=== PATIENT | female | born 1960 | race Caucasian/White ===

== ENCOUNTER 2020-04-04 14:23 | Outpatient (REF) | payer MEDICARE, MEDICAID, SELFPAY ==
[2020-04-04 17:20] LABS: Glucose Urine UA NEG (NEG); Leukocyte Esterase Urine NEG (NEG); Nitrite Urine NEG (NEG); Urine Blood NEG (NEG); Urine Ketones NEG (NEG); Urine Protein NEG (NEG-TRACE)
[2020-04-04 17:23] LABS: Appearance Urine CLEAR; Color Urine YELLOW
[2020-04-04 17:43] LABS: Creatinine Urine 30.51 mg/dL; Microalbumin Urine < 5.0 mg/L
== END 2020-04-04 14:24 | disposition home or self-care (01) ==
LOC: HO.HMGCLNP 14:23
PROVIDERS: PCP Internal Medicine; Visit Provider Internal Medicine
DX: I50.9 Heart failure, unspecified (principal); R73.9 Hyperglycemia, unspecified; C81.90 Hodgkin lymphoma, unspecified, unspecified site; E78.2 Mixed hyperlipidemia
CPT/HCPCS: 81003; 82043

== ENCOUNTER 2020-05-05 14:31 | Outpatient (REF) | payer MEDICARE, MEDICAID, SELFPAY ==
--- NOTE | 2020-05-05 14:25 | MR_ITS ---
EXAMINATION: MRI SHOULDER WITHOUT CONTRAST, LEFT CLINICAL INFORMATION: Shoulder pain almost 2 years. COMPARISON: None. TECHNIQUE: MRI of the shoulder without contrast is performed in a 1.5 [employer] high-field scanner. FINDINGS: CORACOACROMIAL ARCH: [id number]-rt-secnywel acromioclavicular arthritis. Trace fluid in the subacromial-subdeltoid space. Undersurface of the acromion is concave. ROTATOR CUFF: There is marked thinning, intermediate T2 signal and ill-definition of the entire supraspinatus and infraspinatus tendons distally. The tendon involvement in the medial-lateral dimension is variable, measuring up to approximately 3.5 cm ML. The findings have the appearance of a combination of high-grade and likely full-thickness tearing. Teres minor is intact. Moderate subscapularis tendinosis, with partial-thickness articular-sided tearing, with high-grade tearing distally. ROTATOR CUFF MUSCLES: [id number]-[id number] supraspinatus, severe infraspinatus, moderate teres minor muscle atrophy. BICEPS TENDON: Nonvisualization of the proximal biceps tendon with the appearance of high-grade or full-thickness tearing. LABRUM/CAPSULE: Diffuse labral degenerative fraying/tearing. Inferior capsule is intact. GLENOHUMERAL JOINT/MARROW: [id number]-pf-vrvqfc glenohumeral joint arthritis, joint space loss, nonuniform quweoqgx-zl-evqw-grade cartilage thinning, prominent osteophytes, subchondral cysts and edema, including a prominent subchondral cyst in the posterior glenoid. Mild subcortical edema in the greater tuberosity, with minimal spurring. Small effusion, low signal foci of the effusion from synovitis/debris/loose bodies. MR/MR shoulder LT wo con IMPRESSION: 1. High-grade with likely areas of full-thickness tearing diffusely of the entire supraspinatus and infraspinatus tendons distally. It involves a segment of approximately up to 3.5 cm medial-lateral. 2. Moderate subscapularis tendinosis with partial tearing, with the tearing appearing high-grade distally. 3. High-grade or full-thickness tear biceps tendon. 4. Diffuse labral degenerative fraying/tearing. 5. Tfkjctwd-fz-sygpkv glenohumeral joint arthritis. Small effusion with synovitis/debris/loose bodies. 6. Qzmh-il-arekxodc AC joint arthritis.
== END 2020-05-05 14:32 | disposition home or self-care (01) ==
LOC: HO.MRI 14:31
PROVIDERS: PCP Internal Medicine; Visit Provider Internal Medicine
DX: M25.519 Pain in unspecified shoulder (principal); M12.812 Other specific arthropathies, not elsewhere classified, left shoulder
CPT/HCPCS: 73221

== ENCOUNTER 2020-07-22 11:24 | Outpatient (REF) | payer MEDICARE, MEDICAID, SELFPAY ==
[2020-07-22 14:09] LABS: Hematocrit 38.9 % (37-47); Hemoglobin 12.3 g/dl (12.0-16.0); Mean Corpuscular HGB Conc 31.6 g/dl (31.0-35.0); Mean Corpuscular Hemoglobin 27.6 pg (27.0-33.0); Mean Corpuscular Volume 87.2 fL (80-98); Mean Platelet Volume 10.2 fL (9.4-12.3); Platelet Count 401 X10*3/uL (160-400); Red Blood Count 4.46 X10*6/uL (4.20-5.50); Red Cell Distribution Width 14.6 % (11.0-16.0); White Blood Count 8.9 X10*3/uL (4.8-10.8)
[2020-07-22 14:28] LABS: Alanine Aminotransferase 14 U/L (0-31); Albumin Level 3.8 g/dL (3.5-5.0); Alkaline Phosphatase 80 U/L (39-117); Anion Gap 17 (12-20); Aspartate Amino Transferase 15 U/L (5-31); Bilirubin Total 0.2 mg/dL (0.0-1.0); Blood Urea Nitrogen 8 mg/dL (9-16); Calcium 8.8 mg/dL (8.4-10.2); Carbon Dioxide 25 mmol/L (22-29); Chloride 99 mmol/L (96-108); Cholesterol 191 mg/dL; Estimated Glomerular Filt Rate > 60; Glucose Fasting 132 mg/dL (60-99); HDL Cholesterol 33 mg/dL; LDL Cholesterol Calculated 128 mg/dl; Potassium 4.5 mmol/l (3.3-5.1); Sodium 136 mmol/L (135-145); Total Protein 6.7 g/dL (6.5-8.0); Triglycerides 153 mg/dL
[2020-07-22 14:43] LABS: Creatinine Urine 285.03 mg/dL; Microalbum/Creatinine Ratio Ur 16.1 ug/mg cr
[2020-07-22 14:49] LABS: TSH reflex Free T4 1.19 mIU/mL (0.32-4.0)
[2020-07-23 13:37] LABS: Estimated Average Glucose 134 mg/dL; Hemoglobin A1c % 6.3 %
== END 2020-07-22 11:25 | disposition home or self-care (01) ==
LOC: HO.HMGCLDS 11:24
PROVIDERS: PCP Internal Medicine; Visit Provider Internal Medicine
DX: Z20.822 Contact with and (suspected) exposure to COVID-19 (principal); M25.519 Pain in unspecified shoulder; M12.812 Other specific arthropathies, not elsewhere classified, left shoulder; I50.9 Heart failure, unspecified; F32.9 Major depressive disorder, single episode, unspecified; E11.9 Type 2 diabetes mellitus without complications
CPT/HCPCS: 36415; 80053; 80061; 82043; 83036; 84443; 85027; U0003

== ENCOUNTER 2021-06-18 09:32 | Inpatient (IN) | payer MEDICARE, MEDICAID, SELFPAY ==
[2021-06-18] VITALS (22 sets, daily range): BP systolic 70–110; BP diastolic 39–58; PULSE 55–74; RESP 12–19; TEMP 35.5–37; O2SAT 94–100; BMI 30.1
--- NOTE | ~2021-06-18 | XR_ITS ---
EXAMINATION: XR CHEST CLINICAL INFORMATION: Weakness COMPARISON: None TECHNIQUE: 2 views of the chest were obtained. FINDINGS: There is elevation of the right hemidiaphragm. No definite acute parenchymal disease is seen. No pneumothorax or pleural effusion. Heart normal size. No evidence of pulmonary edema. There is a shadow about the superior hilar left mediastinum which may be related to lymphadenopathy or mass. XR/XR chest 2V IMPRESSION: No definite acute parenchymal disease. Question left mediastinal mass or lymphadenopathy. CT of the chest with IV contrast would be of help in further evaluation.
--- NOTE | ~2021-06-18 | US_ITS ---
EXAMINATION: ULTRASOUND-GUIDED LYMPH NODE BIOPSY CLINICAL INFORMATION: Lymphadenopathy. History of lymphoma. COMPARISON: Previous CT of the abdomen and pelvis 06/18/2021 TECHNIQUE: Procedure and risks and benefits including bleeding and infection were discussed with the patient and informed consent was obtained. The left groin was prepped and draped in usual sterile fashion. The skin and soft tissues were anesthetized with 1% lidocaine plain. Using a coaxial system, 5 18-gauge core biopsies were obtained and placed in formalin and flow cytometry solution. FINDINGS: There are enlarged left groin lymph nodes. Lymph nodes demonstrate abnormal ultrasound morphology with cortical thickening and slit-like hilum and abnormal cortical flow. Largest lymph node measuring 5.6 x 3 x 2.8 cm was targeted for core biopsy. US/US biopsy lymph node IMPRESSION: Ultrasound-guided left groin lymph node biopsy.
--- NOTE | ~2021-06-18 | CT_ITS ---
EXAMINATION: CT CHEST, ABDOMEN AND PELVIS WITH CONTRAST CLINICAL INFORMATION: Weight loss and weakness COMPARISON: No pertinent prior studies are available for comparison. TECHNIQUE: Multidetector volumetric imaging was performed from the thoracic inlet through the pubic symphysis following administration of 85 mL of Omnipaque 350 intravenous contrast. Sagittal and coronal reformatted images were obtained on the technologist workstation. DLP: 1886 mGy-cm. FINDINGS: CHEST: Lungs: Central airways are patent. There is some focal bronchial wall thickening with mild bronchiectasis seen within the right lower lobe. There is some mild bilateral apical pleural-parenchymal scarring with some increased interstitial markings right greater than left. There is discoid atelectasis or scarring noted within the right middle lobe and right lower lobe. There are some scattered sub-4 mm densities present. There is elevation of the right hemidiaphragm. There is a 6 mm noncalcified density seen along the horizontal fissure likely representing an intrafissural lymph node. This is best seen on image 178 of 517 in series #9. There is a 4 mm noncalcified nodule seen within the right middle lobe on image 215 of 517 in series #9. Mediastinum: There is prominent lymphadenopathy seen about the mediastinum adjacent to the left side of the aorta and AP window there is a 4.2 x 2.9 x 2.9 cm mass/lymph node. At the level of the AP window and main pulmonary artery there is a 4.2 x 3.0 x 3.8 cm mass/lymph node. In the superior mediastinum there is a 1.3 x 1.0 cm lymph node. In the right paratracheal region there is a 1.4 x 1.7 cm lymph node. Along the left paratracheal region there is a 1.8 x 2.7 cm lymph node. There are numerous other enlarged mediastinal lymph nodes present. There is prominent right hilar lymphadenopathy with one jaya mass measuring approximately 2.7 x 1.9 x 2.0 cm in size. There is some subcarinal lymphadenopathy seen as well. Heart normal size. Coronary artery calcification present. No thoracic aortic aneurysm or dissection. Pericardium/Pleura: There is no significant effusion. No pleural mass or thickening. Chest Wall/Axilla: No axillary or internal mammary lymphadenopathy is seen. No suspicious destructive bony lesion identified. Multilevel degenerative disc disease is present. ABDOMEN/PELVIS: Liver, Gallbladder, Biliary Tree: The liver has diffusely diminished density present consistent with fatty infiltration. No focal mass or intrahepatic bile duct dilatation is seen. There is cholelithiasis present. The gallbladder wall is thickened and appears to have regions that have calcification within the wall. There is question of small amount of fluid either within the wall anteriorly or adjacent to the gallbladder. The calcification may actually lie along the periphery of a few large mainly cholesterol calculi versus lying within the wall of the gallbladder. Pancreas: Unremarkable. Spleen: There are numerous low-density lesions seen throughout the spleen with the appearance of possible metastases. Splenomegaly is present with vertical span of approximately 14 cm. Adrenal Glands: The adrenal glands are prominent bilaterally with an approximately 9 x 7 mm right intrarenal gland low-density lesion and 1.1 x 1.1 x 2.0 cm left adrenal gland nodule. Kidneys and Ureters: There are a few right renal cysts present the largest measuring approximately 4.7 x 3.9 cm in size. No hydronephrosis is evident. No nephrolithiasis. No obstructive uropathy. There is perinephric stranding seen. Bladder: Bermudez catheter in place. Gastrointestinal Tract: No dilated loops of large or small bowel are evident. No free air identified. There is a small amount of free fluid seen. There is presacral soft tissue density/stranding seen. There is some fat stranding around the rectosigmoid and sigmoid colon. Abdominal Wall: No hernia is demonstrated. Lymph Nodes: There is diffuse lymphadenopathy present about the abdomen and pelvis. Within the left inguinal region numerous enlarged lymph nodes are present the largest of which measures 4.2 x 4.7 cm in size. Along the iliac chain there is marked adenopathy with the largest lymph node measuring 4.8 x 6.9 cm in size. There is diffuse mesenteric and periaortic lymphadenopathy. There is encasement of the proximal left common iliac artery. Vascular: There is mild calcified aortoiliac plaque present. No abdominal aortic aneurysm. Portal vein is patent. Pelvic Viscera: No lymphadenopathy and fat stranding present. Osseous Structures: There is multilevel degenerative disc disease present as well as scoliosis convex right. No suspicious destructive bony lesions identified. There is degenerative change of the right hip. Compression screw is seen within the left hip. CT/CT abdomen pelvis w con IMPRESSION: Diffuse lymphadenopathy within the chest, abdomen, and pelvis which may be related to lymphoma. Findings suspicious for metastatic disease to the spleen. Diffuse fatty infiltration of the liver. Cholelithiasis with question fluid within the gallbladder wall and possible gallbladder wall calcification versus calcification of the periphery of some gallstones. Presacral and pericolonic fat stranding within the pelvis with presacral mass is not excluded.
--- NOTE | ~2021-06-18 | CT_ITS ---
EXAMINATION: CT HEAD WITHOUT CONTRAST CLINICAL INFORMATION: Weakness COMPARISON: None TECHNIQUE: Contiguous axial imaging was performed from the skull base to vertex without intravenous administration of contrast. Additional 2-D coronal and sagittal reformatted images are generated on the CT workstation and uploaded to PACS. This CT examination was performed using dose optimization techniques as appropriate, variously including the following: *Automated exposure control *Adjustment of mA and/or kV according to patient size (this includes techniques or standardized protocols for targeted exams where dose is matched to indication/reason for exam; i.e. extremities or head) *Use of iterative reconstruction technique DLP: 657 mGy-cm FINDINGS: There is no intracranial hemorrhage, hematoma, or extra-axial fluid collection. The ventricles are normal in size. There is no hydrocephalus, edema, or mass effect. The carlisle-white matter differentiation appears well preserved . There is no visible acute territorial infarct or mass lesion. The calvarium appears intact. There is no pneumocephalus or orbital emphysema. There are some opacified mastoid air cells. No air-fluid levels. No bony destructive process. The middle ears and sinuses are clear. CT/CT head/brain wo con IMPRESSION: No acute intracranial abnormality.
--- NOTE | 2021-06-18 09:40 | ED.GENADULT ---
HPI - General Adult General Chief complaint: General Medical Stated complaint: WEAKNESS,NAUSEA X'S 4 DAYS Time Seen by Provider: 06/18/21 09:35 Source: patient and EMS Mode of arrival: EMS Limitations: no limitations History of Present Illness HPI narrative: 60-year-old female with a history of hyperlipidemia, depression, [id number] diabetes, chronic peripheral neuropathy status post chemotherapy, congestive heart failure, Hodgkin's lymphoma and colon cancer in remission here with complaints of generalized weakness. Patient tells me over the last 6-9 months she has had increasing weakness worsening over the last few days where she is unable to get out of bed independently. Patient tells me that she believes this started after taking metformin. Since taking metformin she has had nausea with daily episodes of diarrhea 3 to 4 times a day. No abdominal pain. No vomiting. No fevers, chills urinary symptoms. Additionally patient tells me that she has lost about 70 lb over the last 6 months unintentionally. She tells me she has had a left inguinal lymph node that is been enlarged for about a year. She has followed up with her oncologist at [facility]. Related Data Home Medications Medication Instructions Recorded Confirmed fluoxetine 20 mg capsule (Prozac) 20 mg PO QPM 06/18/21 06/18/21 hydroxyzine HCl 25 mg tablet 25 mg PO QD-BID PRN 06/18/21 06/18/21 Previous Rx's Medication Instructions Recorded albuterol sulfate 90 mcg/actuation 2 puff INHALATION Q6H PRN #17 g 01/02/21 aerosol inhaler (ProAir HFA) fluticasone propionate 50 1 spray INTRANASAL DAILY #16 g 04/21/21 mcg/actuation nasal spray,suspension carvedilol 12.5 mg tablet 12.5 mg PO BID 90 Days #180 tab 06/02/21 losartan 25 mg tablet 25 mg PO BID 90 Days #180 tab 06/02/21 Allergies Allergy/AdvReac Type Severity Reaction Status Date / Time valsartan [Entresto] Allergy Unknown fatigue, Verified 11/06/20 12:36 myalgia Review of Systems Review of Systems: Yes all other systems are reviewed and are negative Constitutional: Constitutional: Reports no additional constitutional complaints, Denies body ache(s), Denies chills, Denies fever(s), Denies headache(s) and Reports weakness Eyes: Eyes: Reports no additional eye complaints and Denies change in vision ENT: Reports system reviewed and no additional complaints, except as documented, Denies dizziness, Denies headache(s), Denies nasal congestion, Denies nasal discharge and Denies neck pain Cardiovascular: Cardiovascular: Reports no additional cardiovascular complaints, Denies chest pain, Denies leg edema and Denies dyspnea Respiratory: Respiratory: Reports no additional respiratory complaints, Denies cough and Denies dyspnea Gastrointestinal: Gastrointestinal: Reports no additional gastrointestinal complaints, Denies abdominal pain, Denies diarrhea, Reports nausea and Denies vomiting Genitourinary: Genitourinary: Reports no additional female genitourinary complaints and Denies urinary incontinence Musculoskeletal: Musculoskeletal: Reports no additional musculoskeletal complaints, Denies back pain, Denies arthralgias, Denies joint swelling, Denies neck pain, Denies numbness and Denies tingling Integumentary/Breasts: Skin/Breast: Reports system reviewed and no additional complaints, except as docu and Denies rash Neurologic: Reports system reviewed and no additional complaints, except as documented, Denies Abnormal speech present, Denies dizziness, Denies headache(s), Denies numbness, Denies tingling and Reports weakness PMFSH Past Medical History Attestation statement: The following information was validated with the patient. Source: old records reviewed and nursing notes reviewed Medical History CHF (congestive heart failure) Colon cancer Depression DM type 2 (diabetes mellitus, type 2) Hodgkin disease Hyperlipidemia Neuropathy Rotator cuff arthropathy of left shoulder Shoulder pain Sinusitis, acute Surgical History History of ankle surgery History of femur fracture History of lumbar fusion Family History Family History Mother Small cell lung cancer Father Myocardial infarction Son No problems noted. Social History Social History Alcohol intake: never Patient Tobacco Use Status: Never used Tobacco Use of substances other than those prescribed or required for medical reasons: No Advance Directives: Yes Advance Directives Information Provided: No Advance Directives on File: No Physical Exam Vital Signs: Vital Signs: Last Vital Signs Temp 98.2 F 06/18/21 17:52 Pulse 66 06/18/21 17:52 Resp 18 06/18/21 17:52 BP 104/55 L 06/18/21 17:52 Pulse Ox 98 06/18/21 16:28 BMI result Body Mass Index 30.1 Const: Other: Disheveled, unkept General: alert Orientation/consciousness: patient oriented x3 Limitations: no limitations HENMT: Other: Tacky mucous membranes Head: Yes normal to inspection Ears: hearing grossly normal bilaterally General nose exam: Normal external nose present Face and sinus: Yes normal facial exam Mouth: Normal oral and palatal mucosa present Throat: Yes posterior oropharynx normal Eyes: General: appearance normal, both eyes and all related structures Pupils: Equal, round and reactive pupils present Neck: Neck: Yes normal visual inspection Chest: Chest palpation & inspection: normal inspection of the chest Resp: Effort & Inspection: normal respiratory effort Auscultation: clear to auscultation bilaterally Cardio: Rate: regular rate Rhythm: regular rhythm Peripheral pulses: Peripheral pulses 2+ throughout GI: Inspection: Yes normal to inspection Palpation (GI): Soft to palpation and nontender Auscultation: normal bowel sounds : Other: The left inguinal area there is a enlarged lymph node that is nontender, firm and non mobile Back/Spine/Pelvis: Thoracic/Lumbar Spine: thoracic and lumbar spine normal to inspection Skin: General skin exam: no rashes or lesions noted Neuro: General: patient oriented x3, no focal motor deficits and normal sensation to monofilament Cranial nerves: Yes Equal, round and reactive pupils present Cognition (Neuro): normal cognition Speech: No Abnormal speech present Gait exam (Neuro): Normal gait present Motor exam (neuro): 5/5 motor strength present throughout Extrem: General: Yes normal to inspection Course Course Course Narrative: [id number] female coming into the emergency department with complaints of generalized weakness progressing over the last few months with nausea and unintentional weight loss of 70 lb. On arrival the patient is disheveled, unkept, tacky mucous membranes. No focal neurological findings on exam. On arrival the patient is hypotensive with a blood pressure of 70 systolic. She is alert and oriented. She received 500 mL of normal saline prior to arrival by EMS. Her ideal body weight is 62 kg. She is obese. Normal saline 30 cc kilos per bolus ordered for total 1800ml NS. This is from dehydration and not from infection. Patient also has left inguinal lymphadenopathy. Concern for recurrence of Hodgkin's. Will check labs including blood cultures and lactic acid, UA, EKG, CT head, chest and abdomen and pelvis. 1150-chest x-rays concerning for a left mediastinal mass. There is no shift. CTs are pending. Patient is a difficult IV access. We were able to get 20 gauge IVs in both AC's and able to get labs after multiple attempts. Patient continues to be hypotensive. Fluids are still infusing. She is alert and oriented. She tells me her baseline blood pressure is 90 systolic. 1240-patient continues to be hypotensive. She is alert and oriented. Her fluid bolus completed. I spoke to the insurance claims clerk Dr. Hdez. We did a bedside echocardiogram. The patient has a flat IVC so plan for 1 additional L of fluid. We feel that this is volume depletion and not from infection. Additionally her CBC shows an anemia. Occult stool is negative for microscopic hematuria. No active bleeding anywhere. Patient consented for blood. 2 units of PRBC ordered. Hypotension likely multifactorial secondary to volume depletion in addition to anemia. 1245-patient is hypokalemic. Replacement ordered. Patient has a low albumin it may also be contributing to her hypotension. Albumin ordered. 1320-Patient returned from CT scan, bp 104/51. 1445-CT concerning for recurrence of lymphoma with metastatic disease. Patient's blood pressure is currently greater than 90 systolic. She tells me this is her baseline blood pressure. I spoke to the insurance claims clerk. At this time as her blood pressure is better controlled she does not need ICU level care. Plan to continue to monitor and admitted to Medicine if blood pressure stays above 90 systolic. 1530-Blood pressure right 76/41, left 79/41. Call back to ICU who will re-evaluate the patient. 1645-Blood pressure 90/46. ICU requesting I speak to patient's oncologist at [facility] (Jai) to see what their recommendations would be for management of lymphoma here. 1700-Spoke to Dr Vergara who tells me he saw the patient twice in the office for follow-up. Her initial care for her Hodgkin's was in a hospital in [place]. He tells me this was in 2014 and she was treated with ABVD. She then had a resection for stage 2 colon cancer at a hospital in [place]. He does not know the names of these hospitals and he tells me he requested the records but never received them so is unable to provide me with any additional information about the patient's history. Spoke to insurance claims clerk. Recommended I discussed this with our oncologist here prior to admission. Also recommended I get surgery on board for lymph node biopsy. 1730-Spoke to Dr Moe from oncology who will follow patient. Also spoke to Dr Xiong from surgery who will follow patient. The insurance claims clerk was updated. A 3rd IV was established by nursing. Plan to start vasopressors which will be ordered by ICU. Medical Decision Making Medical Records Medical records reviewed: Yes I reviewed the patient's medical records. Lab Data Lab results reviewed: Yes I reviewed the patient's lab results. Result diagrams: 06/18/21 12:00 06/18/21 11:58 Labs: Lab Results 06/18/21 06/18/21 06/18/21 Range/Units 11:58 11:58 11:58 WBC (4.8-10.8) X10*3/uL RBC (4.20-5.50) X10*6/uL Hgb (12.0-16.0) g/dl Hct (37.0-47.0) % MCV (80.0-98.0) fL MCH (27.0-33.0) pg MCHC (31.0-35.0) g/dl RDW (11.0-16.0) % Plt Count (160-400) X10*3/uL MPV (9.4-12.3) fL Immature Gran % (Auto) (0.0-0.4) % Neut % (Auto) (45-73) % Lymph % (Auto) (20-40) % [place] % (Auto) (2-11) % Eos % (Auto) (0-4) % Baso % (Auto) (0-2) % Lymph # (Auto) (1.2-4.9) X10*3/uL [place] # (Auto) (0.1-1.2) X10*3/uL Eos # (Auto) (0.0-0.4) X10*3/uL Baso # (Auto) (0.0-0.2) X10*3/uL Abs Immat Gran (auto) (0.00-0.03) X10*3/uL Absolute Neuts (auto) (2.0-8.3) x10*3/uL Absolute Nucleated RBC (0.0-0.012) X10*3/uL Nucleated RBC % (auto) (0.0-0.2) /100WBC PT 16.6 H (9.9-13.0) SEC INR 1.5 H (0.9-1.1) APTT 29.1 (24.1-38.0) SEC D-Dimer High Sensitivty 473 NG/ML Sodium 140 (135-145) mmol/L Potassium 2.9 L (3.3-5.1) mmol/L Chloride 103 (96-108) mmol/L Carbon Dioxide 30 H (22-29) mmol/L Anion Gap 10 L (12-20) BUN 8 L (9-16) mg/dL Creatinine 0.46 L (0.5-1.4) mg/dL Estim Creat Clear Calc 143.8 Estimated GFR > 60 Random Glucose 90 (60-115) mg/dL Lactic Acid 1.3 (0.5-2.0) mmol/L Calcium 7.3 L D (8.4-10.2) mg/dL Magnesium 1.6 (1.6-2.6) mg/dL Iron 37 (30-160) mcg/dL TIBC 86 L (228-428) mcg/dL % Saturation 43 (15-50) % Unsat Iron Binding 49 ug/dL Ferritin 4457 H (10-250) ng/mL Total Bilirubin 0.5 (0.0-1.0) mg/dL Direct Bilirubin 0.4 (0.0-0.5) mg/dL AST 36 H D (5-31) U/L ALT 12 (0-31) U/L Alkaline Phosphatase 145 H D (39-117) U/L Lactate Dehydrogenase 236 H (122-220) U/L Total Creatine Kinase 22 L (26-140) U/L Troponin I High Sens (<3.5-17.0) ng/L C-Reactive Protein 24.79 H (< or = 0.50) mg/dL B-Natriuretic Peptide (<100) pg/mL Total Protein 3.9 L D (6.5-8.0) g/dL Albumin 1.8 L D (3.5-5.0) g/dL Lipase 15 (8-78) U/L Vitamin B12 (200-900) pg/mL Folate (> or = 4.0) ng/mL Urine Color Urine Appearance Urine pH (5.0-8.0) Ur Specific Alanson (1.005-1.025) Urine Protein (NEG-TRACE) MG/DL Urine Glucose (UA) (NEG) MG/DL Urine Ketones (NEG) MG/DL Urine Blood (NEG) Urine Nitrite (NEG) Ur Leukocyte Esterase (NEG) Urine RBC (0) /HPF Urine WBC (0-4) /HPF Ur Squamous Epith Cells /LPF Amorphous Sediment /LPF Urine Bacteria /LPF Stool Occult Blood (NEGATIVE) Urine Opiates Screen (Not Detect) Urine Fentanyl Screen (Not Detect) Ur Barbiturates Screen (Not Detect) Ur Phencyclidine Scrn (Not Detect) Ur Amphetamines Screen (Not Detect) U Benzodiazepines Scrn (Not Detect) Urine Cocaine Screen (Not Detect) U Marijuana (THC) Screen (Not Detect) COVID-19 (GAIL) (Negative) COVID-19 Clin Com Blood Type Antibody Screen Crossmatch 06/18/21 06/18/21 06/18/21 Range/Units 11:58 11:58 11:58 WBC (4.8-10.8) X10*3/uL RBC (4.20-5.50) X10*6/uL Hgb (12.0-16.0) g/dl Hct (37.0-47.0) % MCV (80.0-98.0) fL MCH (27.0-33.0) pg MCHC (31.0-35.0) g/dl RDW (11.0-16.0) % Plt Count (160-400) X10*3/uL MPV (9.4-12.3) fL Immature Gran % (Auto) (0.0-0.4) % Neut % (Auto) (45-73) % Lymph % (Auto) (20-40) % [place] % (Auto) (2-11) % Eos % (Auto) (0-4) % Baso % (Auto) (0-2) % Lymph # (Auto) (1.2-4.9) X10*3/uL [place] # (Auto) (0.1-1.2) X10*3/uL Eos # (Auto) (0.0-0.4) X10*3/uL Baso # (Auto) (0.0-0.2) X10*3/uL Abs Immat Gran (auto) (0.00-0.03) X10*3/uL Absolute Neuts (auto) (2.0-8.3) x10*3/uL Absolute Nucleated RBC (0.0-0.012) X10*3/uL Nucleated RBC % (auto) (0.0-0.2) /100WBC PT (9.9-13.0) SEC INR (0.9-1.1) APTT (24.1-38.0) SEC D-Dimer High Sensitivty NG/ML Sodium (135-145) mmol/L Potassium (3.3-5.1) mmol/L Chloride (96-108) mmol/L Carbon Dioxide (22-29) mmol/L Anion Gap (12-20) BUN (9-16) mg/dL Creatinine (0.5-1.4) mg/dL Estim Creat Clear Calc Estimated GFR Random Glucose (60-115) mg/dL Lactic Acid (0.5-2.0) mmol/L Calcium (8.4-10.2) mg/dL Magnesium (1.6-2.6) mg/dL Iron (30-160) mcg/dL TIBC (228-428) mcg/dL % Saturation (15-50) % Unsat Iron Binding ug/dL Ferritin (10-250) ng/mL Total Bilirubin (0.0-1.0) mg/dL Direct Bilirubin (0.0-0.5) mg/dL AST (5-31) U/L ALT (0-31) U/L Alkaline Phosphatase (39-117) U/L Lactate Dehydrogenase (122-220) U/L Total Creatine Kinase (26-140) U/L Troponin I High Sens < 3.5 (<3.5-17.0) ng/L C-Reactive Protein (< or = 0.50) mg/dL B-Natriuretic Peptide 46 (<100) pg/mL Total Protein (6.5-8.0) g/dL Albumin (3.5-5.0) g/dL Lipase (8-78) U/L Vitamin B12 969 H (200-900) pg/mL Folate 3.7 L (> or = 4.0) ng/mL Urine Color Urine Appearance Urine pH (5.0-8.0) Ur Specific Alanson (1.005-1.025) Urine Protein (NEG-TRACE) MG/DL Urine Glucose (UA) (NEG) MG/DL Urine Ketones (NEG) MG/DL Urine Blood (NEG) Urine Nitrite (NEG) Ur Leukocyte Esterase (NEG) Urine RBC (0) /HPF Urine WBC (0-4) /HPF Ur Squamous Epith Cells /LPF Amorphous Sediment /LPF Urine Bacteria /LPF Stool Occult Blood (NEGATIVE) Urine Opiates Screen (Not Detect) Urine Fentanyl Screen (Not Detect) Ur Barbiturates Screen (Not Detect) Ur Phencyclidine Scrn (Not Detect) Ur Amphetamines Screen (Not Detect) U Benzodiazepines Scrn (Not Detect) Urine Cocaine Screen (Not Detect) U Marijuana (THC) Screen (Not Detect) COVID-19 (GAIL) Negative (Negative) COVID-19 Clin Com See Note Blood Type Antibody Screen Crossmatch 06/18/21 06/18/21 06/18/21 Range/Units 12:00 12:04 12:04 WBC 10.9 H (4.8-10.8) X10*3/uL RBC 2.97 L (4.20-5.50) X10*6/uL Hgb 7.3 L (12.0-16.0) g/dl Hct 22.9 L (37.0-47.0) % MCV 77.1 L (80.0-98.0) fL MCH 24.6 L (27.0-33.0) pg MCHC 31.9 (31.0-35.0) g/dl RDW 18.5 H (11.0-16.0) % Plt Count 361 (160-400) X10*3/uL MPV 9.4 (9.4-12.3) fL Immature Gran % (Auto) 4.4 H (0.0-0.4) % Neut % (Auto) 87.6 H (45-73) % Lymph % (Auto) 5.0 L (20-40) % [place] % (Auto) 2.8 (2-11) % Eos % (Auto) 0.1 (0-4) % Baso % (Auto) 0.1 (0-2) % Lymph # (Auto) 0.6 L (1.2-4.9) X10*3/uL [place] # (Auto) 0.3 (0.1-1.2) X10*3/uL Eos # (Auto) 0.0 (0.0-0.4) X10*3/uL Baso # (Auto) 0.0 (0.0-0.2) X10*3/uL Abs Immat Gran (auto) 0.48 H (0.00-0.03) X10*3/uL Absolute Neuts (auto) 9.5 H (2.0-8.3) x10*3/uL Absolute Nucleated RBC 0.000 (0.0-0.012) X10*3/uL Nucleated RBC % (auto) 0.0 (0.0-0.2) /100WBC PT (9.9-13.0) SEC INR (0.9-1.1) APTT (24.1-38.0) SEC D-Dimer High Sensitivty NG/ML Sodium (135-145) mmol/L Potassium (3.3-5.1) mmol/L Chloride (96-108) mmol/L Carbon Dioxide (22-29) mmol/L Anion Gap (12-20) BUN (9-16) mg/dL Creatinine (0.5-1.4) mg/dL Estim Creat Clear Calc Estimated GFR Random Glucose (60-115) mg/dL Lactic Acid (0.5-2.0) mmol/L Calcium (8.4-10.2) mg/dL Magnesium (1.6-2.6) mg/dL Iron (30-160) mcg/dL TIBC (228-428) mcg/dL % Saturation (15-50) % Unsat Iron Binding ug/dL Ferritin (10-250) ng/mL Total Bilirubin (0.0-1.0) mg/dL Direct Bilirubin (0.0-0.5) mg/dL AST (5-31) U/L ALT (0-31) U/L Alkaline Phosphatase (39-117) U/L Lactate Dehydrogenase (122-220) U/L Total Creatine Kinase (26-140) U/L Troponin I High Sens (<3.5-17.0) ng/L C-Reactive Protein (< or = 0.50) mg/dL B-Natriuretic Peptide (<100) pg/mL Total Protein (6.5-8.0) g/dL Albumin (3.5-5.0) g/dL Lipase (8-78) U/L Vitamin B12 (200-900) pg/mL Folate (> or = 4.0) ng/mL Urine Color YELLOW Urine Appearance HAZY Urine pH 6.0 (5.0-8.0) Ur Specific [place]anson <= 1.005 (1.005-1.025) Urine Protein NEG (NEG-TRACE) MG/DL Urine Glucose (UA) NEG (NEG) MG/DL Urine Ketones NEG (NEG) MG/DL Urine Blood TRACE (NEG) Urine Nitrite NEG (NEG) Ur Leukocyte Esterase NEG (NEG) Urine RBC 0-2 (0) /HPF Urine WBC 0-2 (0-4) /HPF Ur Squamous Epith Cells NONE /LPF Amorphous Sediment 1+ /LPF Urine Bacteria 1+ /LPF Stool Occult Blood (NEGATIVE) Urine Opiates Screen Not Detected (Not Detect) Urine Fentanyl Screen Not Detected (Not Detect) Ur Barbiturates Screen Not Detected (Not Detect) Ur Phencyclidine Scrn Not Detected (Not Detect) Ur Amphetamines Screen Not Detected (Not Detect) U Benzodiazepines Scrn Not Detected (Not Detect) Urine Cocaine Screen Not Detected (Not Detect) U Marijuana (THC) Screen Not Detected (Not Detect) COVID-19 (GAIL) (Negative) COVID-19 Clin Com Blood Type Antibody Screen Crossmatch 06/18/21 06/18/21 Range/Units 12:42 12:42 WBC (4.8-10.8) X10*3/uL RBC (4.20-5.50) X10*6/uL Hgb (12.0-16.0) g/dl Hct (37.0-47.0) % MCV (80.0-98.0) fL MCH (27.0-33.0) pg MCHC (31.0-35.0) g/dl RDW (11.0-16.0) % Plt Count (160-400) X10*3/uL MPV (9.4-12.3) fL Immature Gran % (Auto) (0.0-0.4) % Neut % (Auto) (45-73) % Lymph % (Auto) (20-40) % [place] % (Auto) (2-11) % Eos % (Auto) (0-4) % Baso % (Auto) (0-2) % Lymph # (Auto) (1.2-4.9) X10*3/uL [place] # (Auto) (0.1-1.2) X10*3/uL Eos # (Auto) (0.0-0.4) X10*3/uL Baso # (Auto) (0.0-0.2) X10*3/uL Abs Immat Gran (auto) (0.00-0.03) X10*3/uL Absolute Neuts (auto) (2.0-8.3) x10*3/uL Absolute Nucleated RBC (0.0-0.012) X10*3/uL Nucleated RBC % (auto) (0.0-0.2) /100WBC PT (9.9-13.0) SEC INR (0.9-1.1) APTT (24.1-38.0) SEC D-Dimer High Sensitivty NG/ML Sodium (135-145) mmol/L Potassium (3.3-5.1) mmol/L Chloride (96-108) mmol/L Carbon Dioxide (22-29) mmol/L Anion Gap (12-20) BUN (9-16) mg/dL Creatinine (0.5-1.4) mg/dL Estim Creat Clear Calc Estimated GFR Random Glucose (60-115) mg/dL Lactic Acid (0.5-2.0) mmol/L Calcium (8.4-10.2) mg/dL Magnesium (1.6-2.6) mg/dL Iron (30-160) mcg/dL TIBC (228-428) mcg/dL % Saturation (15-50) % Unsat Iron Binding ug/dL Ferritin (10-250) ng/mL Total Bilirubin (0.0-1.0) mg/dL Direct Bilirubin (0.0-0.5) mg/dL AST (5-31) U/L ALT (0-31) U/L Alkaline Phosphatase (39-117) U/L Lactate Dehydrogenase (122-220) U/L Total Creatine Kinase (26-140) U/L Troponin I High Sens (<3.5-17.0) ng/L C-Reactive Protein (< or = 0.50) mg/dL B-Natriuretic Peptide (<100) pg/mL Total Protein (6.5-8.0) g/dL Albumin (3.5-5.0) g/dL Lipase (8-78) U/L Vitamin B12 (200-900) pg/mL Folate (> or = 4.0) ng/mL Urine Color Urine Appearance Urine pH (5.0-8.0) Ur Specific [place] (1.005-1.025) Urine Protein (NEG-TRACE) MG/DL Urine Glucose (UA) (NEG) MG/DL Urine Ketones (NEG) MG/DL Urine Blood (NEG) Urine Nitrite (NEG) Ur Leukocyte Esterase (NEG) Urine RBC (0) /HPF Urine WBC (0-4) /HPF Ur Squamous Epith Cells /LPF Amorphous Sediment /LPF Urine Bacteria /LPF Stool Occult Blood NEGATIVE (NEGATIVE) Urine Opiates Screen (Not Detect) Urine Fentanyl Screen (Not Detect) Ur Barbiturates Screen (Not Detect) Ur Phencyclidine Scrn (Not Detect) Ur Amphetamines Screen (Not Detect) U Benzodiazepines Scrn (Not Detect) Urine Cocaine Screen (Not Detect) U Marijuana (THC) Screen (Not Detect) COVID-19 (GAIL) (Negative) COVID-19 Clin Com Blood Type A Positive Antibody Screen NEGATIVE Crossmatch See Detail Imaging Data Chest x-ray: Attestation: I personally reviewed and interpreted this imaging study as follows: Radiologist's impression: FINDINGS: There is elevation of the right hemidiaphragm. No definite acute parenchymal disease is seen. No pneumothorax or pleural effusion. Heart normal size. No evidence of pulmonary edema. There is a shadow about the superior hilar left mediastinum which may be related to lymphadenopathy or mass. XR/XR chest 2V IMPRESSION: No definite acute parenchymal disease. ? Question left mediastinal mass or lymphadenopathy. CT of the chest with IV contrast would be of help in further evaluation. CT scan - head: Attestation: I personally reviewed and interpreted this imaging study as follows: Radiologist's impression: FINDINGS: There is no intracranial hemorrhage, hematoma, or extra-axial fluid collection.? The ventricles are normal in size. There is no hydrocephalus, edema, or mass effect.? The carlisle-white matter differentiation appears well preserved .? There is no visible acute territorial infarct or mass lesion. The calvarium appears intact. There is no pneumocephalus or orbital emphysema.? There are some opacified mastoid air cells. No air-fluid levels. No bony destructive process. The middle ears and sinuses are clear. CT/CT head/brain wo con IMPRESSION: No acute intracranial abnormality. ? Ct chest/abdomen/pelvis: Attestation: I personally reviewed and interpreted this imaging study as follows: Radiologist's impression: FINDINGS: CHEST: Lungs: Central airways are patent. There is some focal bronchial wall thickening with mild bronchiectasis seen within the right lower lobe. There is some mild bilateral apical pleural-parenchymal scarring with some increased interstitial markings right greater than left. There is discoid atelectasis or scarring noted within the right middle lobe and right lower lobe. There are some scattered sub-4 mm densities present. There is elevation of the right hemidiaphragm. There is a 6 mm noncalcified density seen along the horizontal fissure likely representing an intrafissural lymph node. This is best seen on image 178 of 517 in series #9. There is a 4 mm noncalcified nodule seen within the right middle lobe on image 215 of 517 in series #9. Mediastinum: There is prominent lymphadenopathy seen about the mediastinum adjacent to the left side of the aorta and AP window there is a 4.2 x 2.9 x 2.9 cm mass/lymph node. At the level of the AP window and main pulmonary artery there is a 4.2 x 3.0 x 3.8 cm mass/lymph node. In the superior mediastinum there is a 1.3 x 1.0 cm lymph node. In the right paratracheal region there is a 1.4 x 1.7 cm lymph node. Along the left paratracheal region there is a 1.8 x 2.7 cm lymph node. There are numerous other enlarged mediastinal lymph nodes present. There is prominent right hilar lymphadenopathy with one jaya mass measuring approximately 2.7 x 1.9 x 2.0 cm in size. There is some subcarinal lymphadenopathy seen as well. Heart normal size. Coronary artery calcification present. No thoracic aortic aneurysm or dissection. Pericardium/Pleura: There is no significant effusion. No pleural mass or thickening. Chest Wall/Axilla: No axillary or internal mammary lymphadenopathy is seen. No suspicious destructive bony lesion identified. Multilevel degenerative disc disease is present. ABDOMEN/PELVIS: Liver, Gallbladder, Biliary Tree: The liver has diffusely diminished density present consistent with fatty infiltration. No focal mass or intrahepatic bile duct dilatation is seen. ?There is cholelithiasis present. The gallbladder wall is thickened and appears to have regions that have calcification within the wall. There is question of small amount of fluid either within the wall anteriorly or adjacent to the gallbladder. The calcification may actually lie along the periphery of a few large mainly cholesterol calculi versus lying within the wall of the gallbladder. Pancreas: Unremarkable. Spleen: There are numerous low-density lesions seen throughout the spleen with the appearance of possible metastases. Splenomegaly is present with vertical span of approximately 14 cm. Adrenal Glands: The adrenal glands are prominent bilaterally with an approximately 9 x 7 mm right intrarenal gland low-density lesion and 1.1 x 1.1 x 2.0 cm left adrenal gland nodule. Kidneys and Ureters: There are a few right renal cysts present the largest measuring approximately 4.7 x 3.9 cm in size. No hydronephrosis is evident. No nephrolithiasis. No obstructive uropathy. There is perinephric stranding seen. Bladder: Bermudez catheter in place. Gastrointestinal Tract: No dilated loops of large or small bowel are evident. No free air identified. There is a small amount of free fluid seen. There is presacral soft tissue density/stranding seen. There is some fat stranding around the rectosigmoid and sigmoid colon. Abdominal Wall: No hernia is demonstrated. ? Lymph Nodes: There is diffuse lymphadenopathy present about the abdomen and pelvis. Within the left inguinal region numerous enlarged lymph nodes are present the largest of which measures 4.2 x 4.7 cm in size. Along the iliac chain there is marked adenopathy with the largest lymph node measuring 4.8 x 6.9 cm in size. There is diffuse mesenteric and periaortic lymphadenopathy. There is encasement of the proximal left common iliac artery. Vascular: There is mild calcified aortoiliac plaque present. No abdominal aortic aneurysm. Portal vein is patent. Pelvic Viscera: No lymphadenopathy and fat stranding present. Osseous Structures: There is multilevel degenerative disc disease present as well as scoliosis convex right. No suspicious destructive bony lesions identified. There is degenerative change of the right hip. Compression screw is seen within the left hip. CT/CT abdomen pelvis w con IMPRESSION: Diffuse lymphadenopathy within the chest, abdomen, and pelvis which may be related to lymphoma. ? Findings suspicious for metastatic disease to the spleen. ? Diffuse fatty infiltration of the liver. ? Cholelithiasis with question fluid within the gallbladder wall and possible gallbladder wall calcification versus calcification of the periphery of some gallstones. ? Presacral and pericolonic fat stranding within the pelvis with presacral mass is not excluded.? ECG Data Attestation: I personally reviewed and interpreted this ECG as follows: Interpretation: Sinus bradycardia with rate 59, normal DC, normal QRS, QTC 516. Critical Care Time Critical Care Time Critical Care Time: Yes Total Critical Care Time: 120 Attestation: Multiple re-evaluations for blood pressure, initiation of vasopressors, anemia requiring transfusion, time spent at bedside obtaining labs and IV access, discussion with insurance claims clerk, discussion with oncologist at 2 different locations, discussion with General surgery, discussion with family and discussion about plan for admission Discharge Plan Discharge Clinical Impression: Acute hypotension, Anemia, Lymphoma, Acute hypokalemia, Acute dehydration, Hypoalbuminemia Patient Disposition: Admitted As Inpatient Prescriptions: No Action albuterol sulfate [ProAir HFA] 90 mcg/actuation HFA aerosol inhaler 2 puff inhalation Q6H PRN (Reason: shortness of breath or wheezing) Qty: 17 RF: 5 fluticasone propionate 50 mcg/actuation spray,suspension 1 spray intranasal DAILY Qty: 16 RF: 4 losartan 25 mg tablet 25 mg PO BID 90 Days Qty: 180 RF: 0 carvedilol 12.5 mg tablet 12.5 mg PO BID 90 Days Qty: 180 RF: 0 hydroxyzine HCl 25 mg tablet 25 mg PO QD-BID PRN (Reason: for itch) RF: 0 fluoxetine [Prozac] 20 mg capsule 20 mg PO QPM RF: 0
--- NOTE | 2021-06-18 09:54 | ECG_ITS ---
Test Reason : WEAKNESS Blood Pressure : / mmHG Vent. Rate : 059 BPM Atrial Rate : 059 BPM P-R Int : 162 ms QRS Dur : 094 ms QT Int : 522 ms P-R-T Axes : 024 -03 043 degrees QTc Int : 516 ms Sinus bradycardia Low voltage QRS Prolonged QT Abnormal ECG No previous ECGs available Referred By: Leticia Rodriguez Electronically Signed By:AMILCAR PEPE MD
[2021-06-18] MEDS: 0.9 % Sodium Chloride 1,860 ML 1860 ML IV (10:30)
--- NOTE | 2021-06-18 10:48 | PHA.MEDREC ---
Pharmacy Consult ? Medication Reconciliation Pharmacy has completed the medication reconciliation.
[2021-06-18 12:06] LABS: MANUAL DIFF FLAG NO
[2021-06-18 12:07] LABS: Basophils Percent Auto 0.1 % (0-2); Eosinophils Percent Auto 0.1 % (0-4); Hematocrit 22.9 % (37.0-47.0); Hemoglobin 7.3 g/dl (12.0-16.0); Imm Gran Abs Auto 0.48 X10*3/uL (0.00-0.03); Imm Gran Pct Auto 4.4 % (0.0-0.4); Lymphocytes Absolute Auto 0.6 X10*3/uL (1.2-4.9); Mean Corpuscular HGB Conc 31.9 g/dl (31.0-35.0); Mean Corpuscular Hemoglobin 24.6 pg (27.0-33.0); Mean Corpuscular Volume 77.1 fL (80.0-98.0); Mean Platelet Volume 9.4 fL (9.4-12.3); Monocytes Absolute Auto 0.3 X10*3/uL (0.1-1.2); Monocytes Percent Auto 2.8 % (2-11); Neutrophils Absolute Auto 9.5 x10*3/uL (2.0-8.3); Neutrophils Percent Auto 87.6 % (45-73); Platelet Count 361 X10*3/uL (160-400); Red Blood Count 2.97 X10*6/uL (4.20-5.50); Red Cell Distribution Width 18.5 % (11.0-16.0); White Blood Count 10.9 X10*3/uL (4.8-10.8)
[2021-06-18 12:19] LABS: Lactic Acid 1.3 mmol/L (0.5-2.0)
[2021-06-18 12:23] LABS: INTERNATIONAL NORM RATIO 1.5 (0.9-1.1); Prothrombin Time 16.6 SEC (9.9-13.0)
[2021-06-18 12:31] LABS: B Type Natriuretic Peptide 46 pg/mL (<100); Troponin-I High Sensitivity < 3.5 ng/L (<3.5-17.0)
[2021-06-18 12:37] LABS: COVID-19 Test Negative (Negative)
[2021-06-18] MEDS: 0.9 % Sodium Chloride 1,000 ML 999 ML IV (12:38)
[2021-06-18 12:41] LABS: Alanine Aminotransferase 12 U/L (0-31); Albumin Level 1.8 g/dL (3.5-5.0); Alkaline Phosphatase 145 U/L (39-117); Anion Gap 10 (12-20); Aspartate Amino Transferase 36 U/L (5-31); Bilirubin Direct 0.4 mg/dL (0.0-0.5); Bilirubin Total 0.5 mg/dL (0.0-1.0); Blood Urea Nitrogen 8 mg/dL (9-16); Calcium 7.3 mg/dL (8.4-10.2); Carbon Dioxide 30 mmol/L (22-29); Chloride 103 mmol/L (96-108); Creatinine Clr Calc Pharmacy 143.8; Estimated Glomerular Filt Rate > 60; Glucose Random 90 mg/dL (60-115); Lipase 15 U/L (8-78); Magnesium 1.6 mg/dL (1.6-2.6); Potassium 2.9 mmol/L (3.3-5.1); Sodium 140 mmol/L (135-145); Total Protein 3.9 g/dL (6.5-8.0)
[2021-06-18 12:46] LABS: OBS Int Ctl Valid YES; OBS1 NEGATIVE (NEGATIVE)
[2021-06-18 12:51] LABS: Appearance Urine HAZY; Color Urine YELLOW; Glucose Urine UA NEG (NEG); Leukocyte Esterase Urine NEG (NEG); Nitrite Urine NEG (NEG); Specific Gravity - Urine <= 1.005 (1.005-1.025); UACC Culture Trigger NO; Urine Blood TRACE (NEG); Urine Ketones NEG (NEG); Urine Protein NEG (NEG-TRACE)
[2021-06-18 12:51] LABS: D Dimer High Sensitivity 473 NG/ML
[2021-06-18 12:52] LABS: Partial Thromboplastin Time 29.1 SEC (24.1-38.0)
[2021-06-18 12:59] LABS: C Reactive Protein 24.79 mg/dL (< or = 0.50); Iron 37 mcg/dL (30-160); Lactate Dehydrogenase 236 U/L (122-220); Percent Iron Saturation 43 % (15-50); Total Iron Binding Capacity 86 mcg/dL (228-428); Unsaturated Iron Binding 49 ug/dL
[2021-06-18 13:12] LABS: Amphetamine Screen Urine Not Detected (Not Detect); Barbiturates, Urine Not Detected (Not Detect); Benzodiazepines Screen Urine Not Detected (Not Detect); Cannabinoid Screen Urine Not Detected (Not Detect); Cocaine Screen Urine Not Detected (Not Detect); Fentanyl, urine Not Detected (Not Detect); Opiate Screen Urine Not Detected (Not Detect); Phencyclidine Screen Urine Not Detected (Not Detect)
[2021-06-18] MEDS: iohexoL 350 MG/ML 100 ML INFUS..BTL 85 ML IV (13:29)
[2021-06-18 13:36] LABS: Folate 3.7 ng/mL (> or = 4.0); Vitamin B12 969 pg/mL (200-900)
[2021-06-18 13:54] LABS: Amorphous Sediment Urine 1+ /LPF; Bacteria Urine 1+ /LPF; RBC Urine 0-2 /HPF (0); WBC Urine 0-2 /HPF (0-4)
[2021-06-18 13:59] LABS: Ferritin 4457 ng/mL (10-250)
[2021-06-18] MEDS: Albumin Human 25 % 100 ML IV ×2 (14:51→17:47)
--- NOTE | 2021-06-18 15:52 | P.HPHOSP_ITS ---
History of Present Illness Date of Service: 06/18/21 Chief Complaint: Anemaia ?. Review of Systems Review of Systems: Gen: no fever Resp: no sob, no cough CV: no chest, no REZA, no leg edema GI: No n/v, no abd pain Neuro: No confusion [facility] Medical History CHF (congestive heart failure) Colon cancer Depression DM type 2 (diabetes mellitus, type 2) Hodgkin disease Hyperlipidemia Neuropathy Rotator cuff arthropathy of left shoulder Shoulder pain Sinusitis, acute Family History Mother Small cell lung cancer Father Myocardial infarction Son No problems noted. Surgical History History of ankle surgery History of femur fracture History of lumbar fusion Social History Alcohol intake: never Patient Tobacco Use Status: Never used Tobacco Use of substances other than those prescribed or required for medical reasons: No Advance Directives: Yes Advance Directives on File: Yes Advance Directives Date on File: 06/18/21 Meds Allergies Allergy/AdvReac Type Severity Reaction Status Date / Time valsartan [Entresto] Allergy Unknown fatigue, Verified 11/06/20 12:36 myalgia Active Medications: Current Medications Potassium Chloride () 10 meq in 100 mls @ 100 mls/hr IV Q1H AMPARO Stop: 06/18/21 16:44 Pharmacy Consult (Consult Rx Perform Med Rec) 1 each MISCELLANE ONCE PRN PRN Reason: Consult order Home Medications Medication Instructions Recorded Confirmed Last Taken Type fluoxetine 20 mg capsule (Prozac) 20 mg PO QPM 06/18/21 06/18/21 06/17/21 History hydroxyzine HCl 25 mg tablet 25 mg PO QD-BID PRN 06/18/21 06/18/21 Unknown History Physical Exam Vital Signs and Narrative: Vital Signs: Last Vital Signs Temp 97.5 F 06/18/21 14:45 Pulse 74 06/18/21 14:45 Resp 17 06/18/21 14:45 BP 97/58 L 06/18/21 14:45 Pulse Ox 98 06/18/21 14:27 BMI result Body Mass Index 30.1 Const: Other: Constitutional: Alert, in no distress, overweight. Mental Status: Oriented to person, place and time. Eyes: Pupils are equal, round and reactive to light. Ear, Nose and Throat: Oropharynx clear, mucous membranes moist. Ears and nose without eformities. Trachea midline. Respiratory: Clear to auscultation. No wheezing, rales or rhonchi. Cardiovascular: S1 S2 regular. No murmurs, rubs or gallops. Gastrointestinal: Abdomen soft, non-tender, non-distended. Normal bowel sounds.? Neurologic: Cranial nerves II-XII grossly intact. No focal neurological deficits. Moves all extremities spontaneously.? Skin: No rashes or lesions.? Musculoskeletal: No cyanosis or clubbing. Psychiatric: Normal mood and affect? Results Labs CBC and Chem 7: 06/18/21 12:00 06/18/21 11:58 Labs: Laboratory Results - last 24 hr 06/18/21 06/18/21 06/18/21 11:58 11:58 11:58 Hct MCV MCH MCHC RDW Plt Count MPV Immature Gran % (Auto) Neut % (Auto) Lymph % (Auto) [place] % (Auto) Eos % (Auto) Baso % (Auto) Lymph # (Auto) [place] # (Auto) Eos # (Auto) Baso # (Auto) Abs Immat Gran (auto) Absolute Neuts (auto) Absolute Nucleated RBC Nucleated RBC % (auto) PT 16.6 H INR 1.5 H APTT 29.1 D-Dimer High Sensitivty 473 Anion Gap 10 L Estim Creat Clear Calc 143.8 Estimated GFR > 60 Random Glucose 90 Lactic Acid 1.3 Calcium 7.3 L D Magnesium 1.6 Iron 37 TIBC 86 L % Saturation 43 Unsat Iron Binding 49 Ferritin 4457 H Total Bilirubin 0.5 Direct Bilirubin 0.4 AST 36 H D ALT 12 Alkaline Phosphatase 145 H D Lactate Dehydrogenase 236 H Total Creatine Kinase 22 L Troponin I High Sens C-Reactive Protein 24.79 H B-Natriuretic Peptide Total Protein 3.9 L D Albumin 1.8 L D Lipase 15 Vitamin B12 Folate Urine Color Urine Appearance Urine pH Ur Specific [place] Urine Protein Urine Glucose (UA) Urine Ketones Urine Blood Urine Nitrite Ur Leukocyte Esterase Urine RBC Urine WBC Ur Squamous Epith Cells Amorphous Sediment Urine Bacteria Stool Occult Blood Urine Opiates Screen Urine Fentanyl Screen Ur Barbiturates Screen Ur Phencyclidine Scrn Ur Amphetamines Screen U Benzodiazepines Scrn Urine Cocaine Screen U Marijuana (THC) Screen COVID-19 (GAIL) COVID-19 Clin Com Blood Type Antibody Screen Crossmatch 06/18/21 06/18/21 06/18/21 11:58 11:58 11:58 Hct MCV MCH MCHC RDW Plt Count MPV Immature Gran % (Auto) Neut % (Auto) Lymph % (Auto) [place] % (Auto) Eos % (Auto) Baso % (Auto) Lymph # (Auto) [place] # (Auto) Eos # (Auto) Baso # (Auto) Abs Immat Gran (auto) Absolute Neuts (auto) Absolute Nucleated RBC Nucleated RBC % (auto) PT INR APTT D-Dimer High Sensitivty Anion Gap Estim Creat Clear Calc Estimated GFR Random Glucose Lactic Acid Calcium Magnesium Iron TIBC % Saturation Unsat Iron Binding Ferritin Total Bilirubin Direct Bilirubin AST ALT Alkaline Phosphatase Lactate Dehydrogenase Total Creatine Kinase Troponin I High Sens < 3.5 C-Reactive Protein B-Natriuretic Peptide 46 Total Protein Albumin Lipase Vitamin B12 969 H Folate 3.7 L Urine Color Urine Appearance Urine pH Ur Specific [place] Urine Protein Urine Glucose (UA) Urine Ketones Urine Blood Urine Nitrite Ur Leukocyte Esterase Urine RBC Urine WBC Ur Squamous Epith Cells Amorphous Sediment Urine Bacteria Stool Occult Blood Urine Opiates Screen Urine Fentanyl Screen Ur Barbiturates Screen Ur Phencyclidine Scrn Ur Amphetamines Screen U Benzodiazepines Scrn Urine Cocaine Screen U Marijuana (THC) Screen COVID-19 (GAIL) Negative COVID-19 Clin Com See Note Blood Type Antibody Screen Crossmatch 06/18/21 06/18/21 06/18/21 12:00 12:04 12:04 Hct 22.9 L MCV 77.1 L MCH 24.6 L MCHC 31.9 RDW 18.5 H Plt Count 361 MPV 9.4 Immature Gran % (Auto) 4.4 H Neut % (Auto) 87.6 H Lymph % (Auto) 5.0 L [place] % (Auto) 2.8 Eos % (Auto) 0.1 Baso % (Auto) 0.1 Lymph # (Auto) 0.6 L [place] # (Auto) 0.3 Eos # (Auto) 0.0 Baso # (Auto) 0.0 Abs Immat Gran (auto) 0.48 H Absolute Neuts (auto) 9.5 H Absolute Nucleated RBC 0.000 Nucleated RBC % (auto) 0.0 PT INR APTT D-Dimer High Sensitivty Anion Gap Estim Creat Clear Calc Estimated GFR Random Glucose Lactic Acid Calcium Magnesium Iron TIBC % Saturation Unsat Iron Binding Ferritin Total Bilirubin Direct Bilirubin AST ALT Alkaline Phosphatase Lactate Dehydrogenase Total Creatine Kinase Troponin I High Sens C-Reactive Protein B-Natriuretic Peptide Total Protein Albumin Lipase Vitamin B12 Folate Urine Color YELLOW Urine Appearance HAZY Urine pH 6.0 Ur Specific [place] <= 1.005 Urine Protein NEG Urine Glucose (UA) NEG Urine Ketones NEG Urine Blood TRACE Urine Nitrite NEG Ur Leukocyte Esterase NEG Urine RBC 0-2 Urine WBC 0-2 Ur Squamous Epith Cells NONE Amorphous Sediment 1+ Urine Bacteria 1+ Stool Occult Blood Urine Opiates Screen Not Detected Urine Fentanyl Screen Not Detected Ur Barbiturates Screen Not Detected Ur Phencyclidine Scrn Not Detected Ur Amphetamines Screen Not Detected U Benzodiazepines Scrn Not Detected Urine Cocaine Screen Not Detected U Marijuana (THC) Screen Not Detected COVID-19 (GAIL) COVID-19 Clin Com Blood Type Antibody Screen Crossmatch 06/18/21 06/18/21 12:42 12:42 Hct MCV MCH MCHC RDW Plt Count MPV Immature Gran % (Auto) Neut % (Auto) Lymph % (Auto) [place] % (Auto) Eos % (Auto) Baso % (Auto) Lymph # (Auto) [place] # (Auto) Eos # (Auto) Baso # (Auto) Abs Immat Gran (auto) Absolute Neuts (auto) Absolute Nucleated RBC Nucleated RBC % (auto) PT INR APTT D-Dimer High Sensitivty Anion Gap Estim Creat Clear Calc Estimated GFR Random Glucose Lactic Acid Calcium Magnesium Iron TIBC % Saturation Unsat Iron Binding Ferritin Total Bilirubin Direct Bilirubin AST ALT Alkaline Phosphatase Lactate Dehydrogenase Total Creatine Kinase Troponin I High Sens C-Reactive Protein B-Natriuretic Peptide Total Protein Albumin Lipase Vitamin B12 Folate Urine Color Urine Appearance Urine pH Ur Specific [place] Urine Protein Urine Glucose (UA) Urine Ketones Urine Blood Urine Nitrite Ur Leukocyte Esterase Urine RBC Urine WBC Ur Squamous Epith Cells Amorphous Sediment Urine Bacteria Stool Occult Blood NEGATIVE Urine Opiates Screen Urine Fentanyl Screen Ur Barbiturates Screen Ur Phencyclidine Scrn Ur Amphetamines Screen U Benzodiazepines Scrn Urine Cocaine Screen U Marijuana (THC) Screen COVID-19 (GAIL) COVID-19 Clin Com Blood Type A Positive Antibody Screen NEGATIVE Crossmatch See Detail Imaging Radiologist's Impressions: Impressions Chest X-Ray 06/18/21 10:05 IMPRESSION: No definite acute parenchymal disease. Question left mediastinal mass or lymphadenopathy. CT of the chest with IV contrast would be of help in further evaluation. Abdomen/Pelvis CT 06/18/21 13:35 IMPRESSION: Diffuse lymphadenopathy within the chest, abdomen, and pelvis which may be related to lymphoma. Findings suspicious for metastatic disease to the spleen. Diffuse fatty infiltration of the liver. Cholelithiasis with question fluid within the gallbladder wall and possible gallbladder wall calcification versus calcification of the periphery of some gallstones. Presacral and pericolonic fat stranding within the pelvis with presacral mass is not excluded. Chest CT 06/18/21 13:35 IMPRESSION: Diffuse lymphadenopathy within the chest, abdomen, and pelvis which may be related to lymphoma. Findings suspicious for metastatic disease to the spleen. Diffuse fatty infiltration of the liver. Cholelithiasis with question fluid within the gallbladder wall and possible gallbladder wall calcification versus calcification of the periphery of some gallstones. Presacral and pericolonic fat stranding within the pelvis with presacral mass is not excluded. Head CT 06/18/21 13:35 IMPRESSION: No acute intracranial abnormality.
[2021-06-18] MEDS: Potassium Chloride/H20 10 MEQ/100 ML PIGGYBACK 100 MEQ IV ×2 (16:44→18:05)
--- NOTE | 2021-06-18 17:33 | P.HPCC_ITS ---
History of Present Illness Date of Service: 06/18/21 Attending physician on admission: Kat Hdez Chief Complaint: Weakness and profound weight loss and hypotension 60-year-old female treated for Hodgkin's lymphoma with chemotherapy in the past and probably 1 of the drugs being daunorubicin leaving her with a cardiomyopathy and and currently about a 45% ejection fraction with moderate diffuse hypokinesis of the left ventricle otherwise anatomically normal she has noted a 70 lb weight loss spanning several months and a mass which is becoming tender recently in her left groin and she had also had a colonic resection for carcinoma in the past with no follow-up chemotherapy and has been losing a appetite is got the chronic diarrhea presented with marked hypotension but awake alert perfect mental status conversive and after 3 L of fluid was subjectively feeling much stronger she required 0.25 L because the IVC was still flat and blood pressure still 80 she was in sinus rhythm with is QT prolongation even corrected for heart rate and not having any abdominal pain and there was no current nausea or vomiting and no tenderness but hemoglobin was 7 which is down from her norm of 12 and she was guaiac negative and there was no chemical evidence of hemolysis so I would a ssume this is bone marrow infiltration or suppression also markedly hypoalbuminemic in and subsequent imaging did demonstrate these low-density peppered lesions throughout the spleen with severe diffuse lymphadenopathy involving kalee aortic lymph nodes in the abdomen and the also renal throughout the mediastinum and the chest did not appear to be infected there was no particular source of infection even with all of our testing as well and in no her low-grade fever and all the above symptoms could easily represent a recurrence of a lymphoma and so Oncology was notified and surgery as well so we could obtain a lymph node biopsy sample as we just continued right now to support her and lactic acid of course was also negative and I do not believe this patient on for on focused exam is infected Review of Systems Review of Systems: Yes all other systems are reviewed and are negative [facility] Past Medical History Medical History (Updated 06/19/21 @ 10:21 by Kat Hdez MD) Anemia CHF (congestive heart failure) Colon cancer Depression DM type 2 (diabetes mellitus, type 2) Hodgkin disease Hyperlipidemia Hypoalbuminemia due to protein-calorie malnutrition Neuropathy Nonischemic congestive cardiomyopathy Rotator cuff arthropathy of left shoulder Shoulder pain Sinusitis, acute Weight loss, abnormal Family History Family History Mother Small cell lung cancer Father Myocardial infarction Son No problems noted. Surgical History Surgical History History of ankle surgery History of femur fracture History of lumbar fusion Social History Social History Household Members: Other Household Members Other:: ALONE Housing: Apartment Do you presently have visiting nurse or other home services: Yes ([employer] 10.5 HRS/WEEK) Alcohol intake: never Patient Tobacco Use Status: Former Tobacco user Tobacco use type: Cigarette Smoked in Last 30 Days: No Patient Interested in Nicotine Replacement: No Patient Given Instructions on How to Stop Smoking: No Second Hand Smoke Exposure: No Use of substances other than those prescribed or required for medical reasons: No Currently Displaying Signs/Symptoms of Drug Intoxication Withdrawal: No Any prior treatment program specific to substance use: No Have you been hit, kicked, punched, or otherwise hurt by someone within the past year? If so, by whom?: No Do you feel safe in your current relationship?: No Is there a partner from a previous relationship who is making you feel unsafe now?: No Are you made to feel afraid or neglected: No Spiritual Healthcare Practices: NO Evangelical Healthcare Practices: NO Cultural Healthcare Practices: NO Advance Directives: No Advance Directives Information Provided: No Advance Directives on File: No Do you have thoughts of harming others: None Do you have a plan to hurt others: No Plan Recently lost weight without trying: Yes How much weight loss: 34pounds or more Eating poorly because of decreased appetite: Yes Nutrition screen score: 7 Nutrition Risks: Acute nausea or vomiting x1 week and Poor intake 0-25% >4 days Patient : No : No Poor oral hygiene: No Meds Allergies Allergy/AdvReac Type Severity Reaction Status Date / Time valsartan [Entresto] Allergy Unknown fatigue, Verified 11/06/20 12:36 myalgia Active Medications: Current Medications Dextrose (Dextrose 50 % 25 Gm/50 Ml Vial) 25 gm IVPUSH Q15M PRN; Protocol PRN Reason: per Hypoglycemia Standing Ord. Famotidine (Famotidine/Pf 20 Mg/2 Ml Vial) 20 mg IVPUSH BID AMPARO Glucose (Glucose Gel 15 Gm Gel..Gram.) 15 gm PO Q15M PRN; Protocol PRN Reason: per Hypoglycemia Standing Ord. Magnesium Sulfate/Dextrose (Magnesium Sulfate/D5w) 1 gm in 100 mls @ 100 mls/hr IV ONCE ONE Stop: 06/18/21 18:19 Phenylephrine HCl 20 mg/ (Sodium Chloride) 252 mls @ 0 mls/hr IVCONT .Q0M AMPARO; Protocol Potassium Chloride/Sodium Chloride () 20 meq in 1,000 mls @ 80 mls/hr IVCONT .[id number] [facility] Insulin Human Lispro (Insulin Lispro 100 Unit/Ml 3 Ml Vial) 0 unit SUBCUT Q6H AMPARO; Protocol Stop: 06/19/21 17:31 Pharmacy Consult (Consult Rx Perform Med Rec) 1 each MISCELLANE ONCE PRN PRN Reason: Consult order Home Medications Medication Instructions Recorded Confirmed Last Taken Type fluoxetine 20 mg capsule (Prozac) 20 mg PO QPM 06/18/21 06/18/21 06/17/21 History hydroxyzine HCl 25 mg tablet 25 mg PO QD-BID PRN 06/18/21 06/18/21 Unknown History Physical Exam Vital Signs: Vital Signs: Last Vital Signs Temp 98.2 F 06/18/21 16:28 Pulse 68 06/18/21 16:28 Resp 18 06/18/21 16:28 BP 83/44 L 06/18/21 17:01 Pulse Ox 98 06/18/21 16:28 BMI result Body Mass Index 30.1 awake and alert with good bilateral carotid upstrokes and no neck vein distension and no peripheral edema abdomen is soft with no palpable organomegaly lungs are are clear with no adventitious sounds no accessory muscle use pulses are palpable and she has warm well-perfused with no livedo Results Labs CBC and Chem 7: 06/19/21 05:44 06/19/21 05:44 Labs: Laboratory Results - last 24 hr 06/18/21 06/18/21 06/18/21 11:58 11:58 11:58 MCV MCH MCHC RDW Plt Count MPV Immature Gran % (Auto) Neut % (Auto) Lymph % (Auto) [place] % (Auto) Eos % (Auto) Baso % (Auto) Lymph # (Auto) [place] # (Auto) Eos # (Auto) Baso # (Auto) Abs Immat Gran (auto) Absolute Neuts (auto) Absolute Nucleated RBC Nucleated RBC % (auto) PT 16.6 H INR 1.5 H APTT 29.1 D-Dimer High Sensitivty 473 Anion Gap 10 L Estim Creat Clear Calc 143.8 Estimated GFR > 60 Random Glucose 90 Lactic Acid 1.3 Calcium 7.3 L D Magnesium 1.6 Iron 37 TIBC 86 L % Saturation 43 Unsat Iron Binding 49 Ferritin 4457 H Total Bilirubin 0.5 Direct Bilirubin 0.4 AST 36 H D ALT 12 Alkaline Phosphatase 145 H D Lactate Dehydrogenase 236 H Total Creatine Kinase 22 L Troponin I High Sens C-Reactive Protein 24.79 H B-Natriuretic Peptide Total Protein 3.9 L D Albumin 1.8 L D Lipase 15 Vitamin B12 Folate Urine Color Urine Appearance Urine pH Ur Specific [place] Urine Protein Urine Glucose (UA) Urine Ketones Urine Blood Urine Nitrite Ur Leukocyte Esterase Urine RBC Urine WBC Ur Squamous Epith Cells Amorphous Sediment Urine Bacteria Stool Occult Blood Urine Opiates Screen Urine Fentanyl Screen Ur Barbiturates Screen Ur Phencyclidine Scrn Ur Amphetamines Screen U Benzodiazepines Scrn Urine Cocaine Screen U Marijuana (THC) Screen COVID-19 (GAIL) COVID-19 Clin Com Blood Type Antibody Screen Crossmatch 06/18/21 06/18/21 06/18/21 11:58 11:58 11:58 MCV MCH MCHC RDW Plt Count MPV Immature Gran % (Auto) Neut % (Auto) Lymph % (Auto) [place] % (Auto) Eos % (Auto) Baso % (Auto) Lymph # (Auto) [place] # (Auto) Eos # (Auto) Baso # (Auto) Abs Immat Gran (auto) Absolute Neuts (auto) Absolute Nucleated RBC Nucleated RBC % (auto) PT INR APTT D-Dimer High Sensitivty Anion Gap Estim Creat Clear Calc Estimated GFR Random Glucose Lactic Acid Calcium Magnesium Iron TIBC % Saturation Unsat Iron Binding Ferritin Total Bilirubin Direct Bilirubin AST ALT Alkaline Phosphatase Lactate Dehydrogenase Total Creatine Kinase Troponin I High Sens < 3.5 C-Reactive Protein B-Natriuretic Peptide 46 Total Protein Albumin Lipase Vitamin B12 969 H Folate 3.7 L Urine Color Urine Appearance Urine pH Ur Specific [place] Urine Protein Urine Glucose (UA) Urine Ketones Urine Blood Urine Nitrite Ur Leukocyte Esterase Urine RBC Urine WBC Ur Squamous Epith Cells Amorphous Sediment Urine Bacteria Stool Occult Blood Urine Opiates Screen Urine Fentanyl Screen Ur Barbiturates Screen Ur Phencyclidine Scrn Ur Amphetamines Screen U Benzodiazepines Scrn Urine Cocaine Screen U Marijuana (THC) Screen COVID-19 (GAIL) Negative COVID-19 Clin Com See Note Blood Type Antibody Screen Crossmatch 06/18/21 06/18/21 06/18/21 12:00 12:04 12:04 MCV 77.1 L MCH 24.6 L MCHC 31.9 RDW 18.5 H Plt Count 361 MPV 9.4 Immature Gran % (Auto) 4.4 H Neut % (Auto) 87.6 H Lymph % (Auto) 5.0 L [place] % (Auto) 2.8 Eos % (Auto) 0.1 Baso % (Auto) 0.1 Lymph # (Auto) 0.6 L [place] # (Auto) 0.3 Eos # (Auto) 0.0 Baso # (Auto) 0.0 Abs Immat Gran (auto) 0.48 H Absolute Neuts (auto) 9.5 H Absolute Nucleated RBC 0.000 Nucleated RBC % (auto) 0.0 PT INR APTT D-Dimer High Sensitivty Anion Gap Estim Creat Clear Calc Estimated GFR Random Glucose Lactic Acid Calcium Magnesium Iron TIBC % Saturation Unsat Iron Binding Ferritin Total Bilirubin Direct Bilirubin AST ALT Alkaline Phosphatase Lactate Dehydrogenase Total Creatine Kinase Troponin I High Sens C-Reactive Protein B-Natriuretic Peptide Total Protein Albumin Lipase Vitamin B12 Folate Urine Color YELLOW Urine Appearance HAZY Urine pH 6.0 Ur Specific [place] <= 1.005 Urine Protein NEG Urine Glucose (UA) NEG Urine Ketones NEG Urine Blood TRACE Urine Nitrite NEG Ur Leukocyte Esterase NEG Urine RBC 0-2 Urine WBC 0-2 Ur Squamous Epith Cells NONE Amorphous Sediment 1+ Urine Bacteria 1+ Stool Occult Blood Urine Opiates Screen Not Detected Urine Fentanyl Screen Not Detected Ur Barbiturates Screen Not Detected Ur Phencyclidine Scrn Not Detected Ur Amphetamines Screen Not Detected U Benzodiazepines Scrn Not Detected Urine Cocaine Screen Not Detected U Marijuana (THC) Screen Not Detected COVID-19 (GAIL) COVID-19 Clin Com Blood Type Antibody Screen Crossmatch 06/18/21 06/18/21 12:42 12:42 MCV MCH MCHC RDW Plt Count MPV Immature Gran % (Auto) Neut % (Auto) Lymph % (Auto) [place] % (Auto) Eos % (Auto) Baso % (Auto) Lymph # (Auto) [place] # (Auto) Eos # (Auto) Baso # (Auto) Abs Immat Gran (auto) Absolute Neuts (auto) Absolute Nucleated RBC Nucleated RBC % (auto) PT INR APTT D-Dimer High Sensitivty Anion Gap Estim Creat Clear Calc Estimated GFR Random Glucose Lactic Acid Calcium Magnesium Iron TIBC % Saturation Unsat Iron Binding Ferritin Total Bilirubin Direct Bilirubin AST ALT Alkaline Phosphatase Lactate Dehydrogenase Total Creatine Kinase Troponin I High Sens C-Reactive Protein B-Natriuretic Peptide Total Protein Albumin Lipase Vitamin B12 Folate Urine Color Urine Appearance Urine pH Ur Specific [place] Urine Protein Urine Glucose (UA) Urine Ketones Urine Blood Urine Nitrite Ur Leukocyte Esterase Urine RBC Urine WBC Ur Squamous Epith Cells Amorphous Sediment Urine Bacteria Stool Occult Blood NEGATIVE Urine Opiates Screen Urine Fentanyl Screen Ur Barbiturates Screen Ur Phencyclidine Scrn Ur Amphetamines Screen U Benzodiazepines Scrn Urine Cocaine Screen U Marijuana (THC) Screen COVID-19 (GAIL) COVID-19 Clin Com Blood Type A Positive Antibody Screen NEGATIVE Crossmatch See Detail Imaging Radiologist's Impressions: Impressions Chest X-Ray 06/18/21 10:05 IMPRESSION: No definite acute parenchymal disease. Question left mediastinal mass or lymphadenopathy. CT of the chest with IV contrast would be of help in further evaluation. Abdomen/Pelvis CT 06/18/21 13:35 IMPRESSION: Diffuse lymphadenopathy within the chest, abdomen, and pelvis which may be related to lymphoma. Findings suspicious for metastatic disease to the spleen. Diffuse fatty infiltration of the liver. Cholelithiasis with question fluid within the gallbladder wall and possible gallbladder wall calcification versus calcification of the periphery of some gallstones. Presacral and pericolonic fat stranding within the pelvis with presacral mass is not excluded. Chest CT 06/18/21 13:35 IMPRESSION: Diffuse lymphadenopathy within the chest, abdomen, and pelvis which may be related to lymphoma. Findings suspicious for metastatic disease to the spleen. Diffuse fatty infiltration of the liver. Cholelithiasis with question fluid within the gallbladder wall and possible gallbladder wall calcification versus calcification of the periphery of some gallstones. Presacral and pericolonic fat stranding within the pelvis with presacral mass is not excluded. Head CT 06/18/21 13:35 IMPRESSION: No acute intracranial abnormality. Assessment and Plan (1) Acute hypotension: Status: Acute (2) Anemia: Status: Acute (3) Lymphoma: Status: Acute (4) Hodgkin lymphoma: Status: Acute (5) Hypoalbuminemia: Status: Acute (6) Acute dehydration: Status: Acute (7) Acute hypokalemia: Status: Acute (8) Nonischemic congestive cardiomyopathy: Status: Acute (9) DM type 2 (diabetes mellitus, type 2): Status: Acute (10) Weight loss, abnormal: Status: Acute (11) Hypoalbuminemia due to protein-calorie malnutrition: Status: Acute (12) Anemia: Status: Acute continue with supportive phenylephrine as well as fluid and will obtain a biopsy of an easily approachable lymph node in her left groin hopefully today and await pathology but thus far will continue surveillance for infection it is not noted
[2021-06-18] MEDS: Potassium Chloride Packet 20 MEQ PACKET 40 MEQ PO (17:46)
--- NOTE | 2021-06-18 18:32 | P.CNHO_ITS ---
Subjective - Subjective Chief complaint: Consult for: Diffuse adenopathy. History of Hodgkin's lymphoma. Patient: new to practice Consult date: 06/18/21 Requesting Physician: Merline. Primary Care Provider: Dolores Petersen MD Medical Summary: DIAGNOSIS: HISTORY OF HODGKIN'S LYMPHOMA. NOW PRESENTS WITH ADENOPATHY. ANEMIA. HPI - Consult Narrative Reason for consult: Consult for: Question recurrent Hodgkin's lymphoma. Narrative: Shaina Orona is a pleasant 60 year old lady, with a previous history of Hodgkin's lymphoma diagnosed about 6 years ago. She was treated in [place]. Apparently she got ABVD x6, in 2014. Recently she has been under the care of Dr. Sandy at [facility]. She now presents with easy fatigability, night sweats, nausea, diarrhea, anorexia and a [address] scan of the chest and abdomen and pelvis was done which revealed: Diffuse lymphadenopathy within the chest, abdomen, and pelvis which may be related to lymphoma. Findings suspicious for metastatic disease to the spleen. Diffuse fatty infiltration of the liver. Cholelithiasis with question fluid within the gallbladder wall and possible gallbladder wall calcification versus calcification of the periphery of some gallstones. Presacral and pericolonic fat stranding within the pelvis with presacral mass is not excluded. Head CT 06/18/21: No acute intracranial abnormality. PAST MEDICAL HISTORY: 1. Hodgkin's lymphoma treated in 2014 in [place]. 2. [facility] 3. Chronic fatigue syndrome. 4. History of congestive heart failure. 5. History of neuropathy related to chemotherapy. 6. Anxiety and depression. 7. History of asymptomatic COVID infection. ROS: She tells me she has had easy fatigability for about 6 months now. She has had difficulty getting out of bed. It is hard for her to get up off a chair. She has had night sweats. She felt she had no appetite. She had lost the sense of taste and smell. She lost 70 lb. Complains of headaches at times. Denies chest pain or trouble breathing. Denies any abdominal pain heartburn. She had some nausea. Denies vomiting. Recently she has had diarrhea. She attributes that to taking metformin. Denies any gross blood in the stools. Denies urinary trouble. She has always had joint pains and muscle pain. She does have weakness all over. She has been depressed lately. She used to get itching all over her body. It is better now. FAMILY HISTORY: Mom had small cell carcinoma of the lung. A sister had breast cancer. A brother had lymphoma. He recently of COVID. SOCIAL HISTORY: She used to work in the computers, as an office workforce planner, and in marketing. Currently disabled. She is not . She has 1 child. She used to smoke a pack per week quit 6 years ago. She used to drink, heavily at times. Review of Systems - Constitutional Reports system reviewed and no additional complaints, except as documented - Eyes Reports system reviewed and no additional complaints, except as documented - ENT Reports system reviewed and no additional complaints, except as documented - Cardiovascular Reports system reviewed and no additional complaints, except as documented - Respiratory Reports no additional respiratory complaints - Gastrointestinal Reports system reviewed and no additional complaints, except as documented - Genitourinary Reports no additional female genitourinary complaints - Musculoskeletal Reports system reviewed and no additional complaints, except as documented - Integumentary/Breasts Skin/Breast: Reports no additional skin complaints - Neurologic Reports system reviewed and no additional complaints, except as documented, Reports weakness, Denies abnormal speech, Denies headache(s), Denies numbness, Denies tingling - Psychiatric Reports system reviewed and no additional complaints, except as documented - Endocrine Reports no additional endocrine complaints - Hematologic/Lymphatic Reports system reviewed and no additional complaints, except as documented - Allergic/Immunologic Reports system reviewed and no additional complaints, except as documented PMF Medical History: Medical History (Last Reviewed 06/20/21 @ 12:14 by Rosalie Vieyra, JOSE) Anemia CHF (congestive heart failure) Colon cancer Depression DM type 2 (diabetes mellitus, type 2) Hodgkin disease Hyperlipidemia Hypoalbuminemia due to protein-calorie malnutrition Neuropathy Nonischemic congestive cardiomyopathy Rotator cuff arthropathy of left shoulder Shoulder pain Sinusitis, acute Weight loss, abnormal Functional capacity: uses cane/walker Patient : No Family History: Family History (Last Reviewed 06/19/21 @ 07:53 by Jamal Dailey MD) Mother Small cell lung cancer Father Myocardial infarction Son No problems noted. Surgical History: Surgical History (Last Reviewed 06/20/21 @ 12:14 by Rosalie Vieyra, JOSE) History of ankle surgery History of femur fracture History of lumbar fusion Social History: Social History (Last Reviewed 06/19/21 @ 07:53 by Jamal Dailey MD) Living Situation History: Household Members: Other Household Members Other:: ALONE Housing: Apartment Do you presently have visiting nurse or other home services: Yes Do you presently have visiting nurse or other home services comment: [employer] 10.5 HRS/WEEK Alcohol History: Alcohol intake: never Tobacco History: Patient Tobacco Use Status: Former Tobacco user Tobacco use type: Cigarette Second Hand Smoke Exposure: No Occupation Assessmet: service: No Current occupational status: disabled Home Medications and Allergies Current Medications: Current Medications Dextrose (Dextrose 50 % 25 Gm/50 Ml Vial) 25 gm IVPUSH Q15M PRN; Protocol PRN Reason: per Hypoglycemia Standing Ord. Famotidine (Famotidine/Pf 20 Mg/2 Ml Vial) 20 mg IVPUSH BID AMPARO Glucose (Glucose Gel 15 Gm Gel..Gram.) 15 gm PO Q15M PRN; Protocol PRN Reason: per Hypoglycemia Standing Ord. Phenylephrine HCl 20 mg/ (Sodium Chloride) 252 mls @ 0 mls/hr IVCONT .Q0M AMPARO; Protocol Potassium Chloride/Sodium Chloride () 20 meq in 1,000 mls @ 80 mls/hr IVCONT .[id number] AMPARO Insulin Human Lispro (Insulin Lispro 100 Unit/Ml 3 Ml Vial) 0 unit SUBCUT Q6H AMPARO; Protocol Stop: 06/19/21 17:31 Last Admin: 06/18/21 17:56 Dose: Not Given Documented by: Pharmacy Consult (Consult Rx Perform Med Rec) 1 each MISCELLANE ONCE PRN PRN Reason: Consult order Home Medications Medication Instructions Recorded Confirmed Type fluoxetine 20 mg capsule (Prozac) 20 mg PO QPM 06/18/21 06/18/21 History hydroxyzine HCl 25 mg tablet 25 mg PO QD-BID PRN 06/18/21 06/18/21 History Allergies Allergy/AdvReac Type Severity Reaction Status Date / Time valsartan [Entresto] Allergy Unknown fatigue, Verified 11/06/20 12:36 myalgia Physical Exam Vital signs: Vital Signs Temp 98.2 F 06/18/21 18:25 Pulse 68 06/18/21 18:25 Resp 18 06/18/21 18:25 BP 98/55 L 06/18/21 18:25 Pulse Ox 98 06/18/21 16:28 Intake & Output 06/17/21 06/18/21 06/18/21 18:59 06:59 18:59 Intake Total 3410 / 3410 Balance 3410 / 3410 Intake: Intake (Blood Product) Amount 350 / 350 Red Blood Cells (E0336) Unit 0 / 0 [id number] Red Blood Cells (E0336) Unit 350 / 350 [id number] Intake, IV Amount 3060 / 3060 0.9 % Sodium Chloride 1,000 ml 2860 / 2860 @ 999 mls/hr IV .Q1H1M STA Rx#: [id number] Albumin Human 25 % 100 ml @ 100 100 / 100 mls/hr IV Q1H AMPARO Rx#: [id number] Potassium Chloride/H20 10 meq 100 / 100 In 100 ml @ 100 mls/hr IV Q1H AMPARO Rx#:[id number] Other: Weight 87.3 kg Weight 87.3 kg - Constitutional Present: moderate distress - Routine HEENT Exam Head: Present: normal inspection, normocephalic - Routine Neck Exam Present: supple - Routine Respiratory Exam Present: CTAB Hem/Onc Consult Result - Labs CBC & Chem 7: 06/20/21 09:32 06/19/21 05:44 Labs: Short CBC 06/18/21 Range/Units 12:00 WBC 10.9 H (4.8-10.8) X10*3/uL Hgb 7.3 L (12.0-16.0) g/dl Hct 22.9 L (37.0-47.0) % Plt Count 361 (160-400) X10*3/uL [facility] 06/18/21 11:58 Sodium 140 Potassium 2.9 L Chloride 103 Carbon Dioxide 30 H BUN 8 L Creatinine 0.46 L Calcium 7.3 L D Cardiac Enzymes 06/18/21 Range/Units 11:58 Total Creatine Kinase 22 L (26-140) U/L Liver Function 06/18/21 Range/Units 11:58 Total Bilirubin 0.5 (0.0-1.0) mg/dL Direct Bilirubin 0.4 (0.0-0.5) mg/dL AST 36 H D (5-31) U/L ALT 12 (0-31) U/L Alkaline Phosphatase 145 H D (39-117) U/L Albumin 1.8 L D (3.5-5.0) g/dL Urine 06/18/21 Range/Units 12:04 Urine Color YELLOW Urine Appearance HAZY Urine pH 6.0 (5.0-8.0) Ur Specific [place] <= 1.005 (1.005-1.025) Urine Protein NEG (NEG-TRACE) MG/DL Urine Glucose (UA) NEG (NEG) MG/DL Assessment and Plan Patient Active problem list reviewed?: Yes (1) Hodgkin lymphoma Status: Acute Assessment and plan: 60-year-old lady with a previous history of Hodgkin's lymphoma treated with ABVD in 2015. Now presents with systemic symptoms: Generalized weakness and nausea, hypotension and anemia. Diffuse lymphadenopathy within the chest, abdomen, and pelvis which may be related to lymphoma. Findings suspicious for metastatic disease to the spleen. Diffuse fatty infiltration of the liver. Cholelithiasis with question fluid within the gallbladder wall and possible gallbladder wall calcification versus calcification of the periphery of some gallstones. Presacral and pericolonic fat stranding within the pelvis with presacral mass is not excluded. Head CT 06/18/21: No acute intracranial abnormality. She has received 2 units of packed RBCs. PLAN: To admit her to the ICU. She will receive further hydration. Will follow with IR to see what is the best site for lymph node biopsy, likely the inguinal area. Discussed with IR. Will proceed with ultrasound-guided biopsy of the left inguinal lymph node in ICU. Coags: PT is slightly prolonged. Likely on nutritional basis. Will give IV vitamin K for quick correction. Will proceed with further staging with a PET scan once she is in outpatient. Will also proceed with a bone marrow exam for staging, given the anemia. I have reviewed records from Dr. Sandy, from [facility]. Will request records from [place]. Thank you for the consult, Will follow, CC: Dr. Petersen. - Time Spent With Patient Time Spent with Patient (in minutes): 40
[2021-06-18] MEDS: Magnesium Sulfate/D5W 1 GM/100 ML PIGGYBACK IV (18:50)
[2021-06-18 19:17] LABS: Thyroid Stimulating Hormone 0.87 uIU/mL (0.32-4.0)
[2021-06-18 22:06] LABS: Glucose, Whole Blood 115 mg/dL (60-115)
[2021-06-18] MEDS: Melatonin 3 MG TABLET 6 MG PO (22:29)
[2021-06-18] MEDS: Famotidine/PF 20 MG/2 ML VIAL IVPUSH (22:30)
[2021-06-19] VITALS (16 sets, daily range): BP systolic 94–113; BP diastolic 45–77; PULSE 63–71; RESP 14–29; TEMP 36–37.7; O2SAT 93–100; BMI 30.9
--- NOTE | 2021-06-19 05:19 | PC.NURSE ---
Pt to [facility] at 2034 in no acute distress. She is A&O X3. Denies complaints. Bp on arrival 101/52. Monitor showed NSR, HR 60's, occ PVC notedPt received 2 units of LRBC's in ER without complication. IV of 1000 ml NS with 20 mEq KCL infusing as ordered. Provider Octaviano Mariee questioned about further blood draws for potassium and Hgb/Hct and said we will repeat in am. Pt slept off and on in naps overnight. Received melatonin for sleep at night. Denies nausea. Asking for food but provider wants pt to be NPO for now. Ok for ice chips which pt has been having without ill effect.
[2021-06-19 05:51] LABS: MANUAL DIFF FLAG NO
[2021-06-19 05:55] LABS: Basophils Percent Auto 0.2 % (0-2); Hematocrit 29.7 % (37.0-47.0); Imm Gran Abs Auto 0.27 X10*3/uL (0.00-0.03); Imm Gran Pct Auto 2.5 % (0.0-0.4); Lymphocytes Absolute Auto 0.6 X10*3/uL (1.2-4.9); Lymphocytes Percent Auto 5.4 % (20-40); Mean Corpuscular HGB Conc 33.7 g/dl (31.0-35.0); Mean Corpuscular Hemoglobin 26.4 pg (27.0-33.0); Mean Corpuscular Volume 78.4 fL (80.0-98.0); Mean Platelet Volume 9.4 fL (9.4-12.3); Monocytes Absolute Auto 0.4 X10*3/uL (0.1-1.2); Monocytes Percent Auto 3.3 % (2-11); Neutrophils Absolute Auto 9.8 x10*3/uL (2.0-8.3); Neutrophils Percent Auto 88.6 % (45-73); Platelet Count 377 X10*3/uL (160-400); Red Blood Count 3.79 X10*6/uL (4.20-5.50); Red Cell Distribution Width 17.6 % (11.0-16.0)
[2021-06-19 06:17] LABS: Alanine Aminotransferase 11 U/L (0-31); Albumin Level 2.5 g/dL (3.5-5.0); Alkaline Phosphatase 138 U/L (39-117); Anion Gap 11 (12-20); Aspartate Amino Transferase 24 U/L (5-31); Bilirubin Total 0.7 mg/dL (0.0-1.0); Blood Urea Nitrogen 4 mg/dL (9-16); Calcium 7.5 mg/dL (8.4-10.2); Carbon Dioxide 25 mmol/L (22-29); Chloride 106 mmol/L (96-108); Creatinine Clr Calc Pharmacy 155.8; Estimated Glomerular Filt Rate > 60; Glucose Random 77 mg/dL (60-115); Potassium 3.4 mmol/L (3.3-5.1); Sodium 139 mmol/L (135-145); Total Protein 4.4 g/dL (6.5-8.0)
--- NOTE | 2021-06-19 07:47 | P.CONGS_ITS ---
History of Present Illness Consult details Consult date: 06/18/21 Requesting physician: Kat Hdez Narrative: 60-year-old female patient with a prior history of Hodgkin's lymphoma presenting to the emergency department with complaints of generalized weakness which is progressed over the last several days. She was noted to be hypotensive upon presentation. Patient bleeds the symptoms started after taking metformin which is associated with nausea diarrhea. She denies vomiting abdominal pain, fever, chills, or vomiting. She was previously treated for Hodgkin's lymphoma [place] and apparently was in remission. She is currently being followed at [facility] for her lymphoma. She noted a left inguinal lymph node which is gradually increased in size. She also complains of approximately 70 lb weight loss over the last 6 months. She presented to emergency department and underwent a CT of the chest abdomen and pelvis. She was noted to have multiple areas of lymphadenopathy in both the chest and abdomen and a large node in the left groin. There is also evidence of splenic disease suggestive of recurrent Hodgkin's disease . Surgical consultation was requested for possible lymph node biopsy. Patient has been evaluated by Medical Oncology as well. Review of Systems Review of Systems: Yes all other systems are reviewed and are negative Constitutional: Constitutional: Reports body ache(s), Denies chills, Denies fever(s), Reports malaise, Reports weakness and Reports weight loss Cardiovascular: Cardiovascular: Denies dyspnea Respiratory: Respiratory: Denies chest congestion, Denies cough and Denies dyspnea Gastrointestinal: Gastrointestinal: Denies abdominal pain, Denies hematochezia, Denies constipation and Denies diarrhea Genitourinary: Genitourinary: Reports no additional female genitourinary complaints Neurologic: Reports weakness Psychiatric: Psychiatric: Reports anxiety and Reports depression [facility] Past Medical History Medical History CHF (congestive heart failure) Colon cancer Depression DM type 2 (diabetes mellitus, type 2) Hodgkin disease Hyperlipidemia Neuropathy Rotator cuff arthropathy of left shoulder Shoulder pain Sinusitis, acute Functional capacity: uses cane/walker Family History Family History Mother Small cell lung cancer Father Myocardial infarction Son No problems noted. Surgical History Surgical History History of ankle surgery History of femur fracture History of lumbar fusion Social History Social History Household Members: Other Household Members Other:: ALONE Housing: Apartment Do you presently have visiting nurse or other home services: Yes ([employer] 10.5 HRS/WEEK) Alcohol intake: never Patient Tobacco Use Status: Former Tobacco user Tobacco use type: Cigarette Smoked in Last 30 Days: No Patient Interested in Nicotine Replacement: No Patient Given Instructions on How to Stop Smoking: No Second Hand Smoke Exposure: No Use of substances other than those prescribed or required for medical reasons: No Currently Displaying Signs/Symptoms of Drug Intoxication Withdrawal: No Any prior treatment program specific to substance use: No Have you been hit, kicked, punched, or otherwise hurt by someone within the past year? If so, by whom?: No Do you feel safe in your current relationship?: No Is there a partner from a previous relationship who is making you feel unsafe now?: No Are you made to feel afraid or neglected: No Spiritual Healthcare Practices: NO Restorationism Healthcare Practices: NO Cultural Healthcare Practices: NO Advance Directives: No Advance Directives Information Provided: No Advance Directives on File: No Do you have thoughts of harming others: None Do you have a plan to hurt others: No Plan Recently lost weight without trying: Yes How much weight loss: 34pounds or more Eating poorly because of decreased appetite: Yes Nutrition screen score: 7 Nutrition Risks: Acute nausea or vomiting x1 week and Poor intake 0-25% >4 days Patient : No : No Poor oral hygiene: No Meds Allergies Allergy/AdvReac Type Severity Reaction Status Date / Time valsartan [Entresto] Allergy Unknown fatigue, Verified 11/06/20 12:36 myalgia Active Medications: Current Medications Dextrose (Dextrose 50 % 25 Gm/50 Ml Vial) 25 gm IVPUSH Q15M PRN; Protocol PRN Reason: per Hypoglycemia Standing Ord. Enoxaparin Sodium (Enoxaparin Sodium 40 Mg/0.4 Ml Syringe) 40 mg SUBCUT Q24H AMPARO Last Admin: 06/19/21 02:17 Dose: Not Given Documented by: Famotidine (Famotidine/Pf 20 Mg/2 Ml Vial) 20 mg IVPUSH BID [facility] Last Admin: 06/18/21 22:30 Dose: 20 mg Documented by: Glucose (Glucose Gel 15 Gm Gel..Gram.) 15 gm PO Q15M PRN; Protocol PRN Reason: per Hypoglycemia Standing Ord. Phenylephrine HCl 20 mg/ (Sodium Chloride) 252 mls @ 0 mls/hr IVCONT .Q0M [facility]; Protocol Potassium Chloride/Sodium Chloride () 40 meq in 1,000 mls @ 60 mls/hr IVCONT .[id number] [facility] Insulin Human Lispro (Insulin Lispro 100 Unit/Ml 3 Ml Vial) 0 unit SUBCUT Q6H [facility]; Protocol Stop: 06/19/21 17:31 Last Admin: 06/19/21 06:45 Dose: Not Given Documented by: Melatonin (Melatonin 3 Mg Tablet) 6 mg PO BEDTIME PRN PRN Reason: Sleep Pharmacy Consult (Consult Rx Perform Med Rec) 1 each MISCELLANE ONCE PRN PRN Reason: Consult order Home Medications Medication Instructions Recorded Confirmed Last Taken Type fluoxetine 20 mg capsule (Prozac) 20 mg PO QPM 06/18/21 06/18/21 06/17/21 History hydroxyzine HCl 25 mg tablet 25 mg PO QD-BID PRN 06/18/21 06/18/21 Unknown History Physical Exam Vital Signs: Vital Signs: Last Vital Signs Temp 99.1 F 06/19/21 07:00 Pulse 71 06/19/21 07:00 Resp 14 06/19/21 07:00 BP 103/49 L 06/19/21 07:00 Pulse Ox 98 06/19/21 07:00 BMI result Body Mass Index 30.9 Const: General: comfortable and alert Nutritional Appearance: thin Orientation/consciousness: patient oriented x3 Limitations: no limitations HENMT: Head: Yes normocephalic and Yes atraumatic Resp: Effort & Inspection: normal respiratory effort, no audible wheezes, no cough and no respiratory distress GI: Inspection: Yes normal to inspection Palpation (GI): Soft to palpation and nontender Skin: General skin exam: no rashes or lesions noted and dry skin Neuro: General: patient oriented x3 Extrem: Other: Large palpable adenopathy in the left groin. Possible small shotty nodes in the supraclavicular right neck. No axillary adenopathy appreciated. Upper/lower leg/hip images: 1. Site of large adenopathy left groin Results Labs Result diagrams: 06/19/21 05:44 06/19/21 05:44 Labs: Abnormal lab results 06/18/21 06/18/21 06/18/21 Range/Units 11:58 11:58 11:58 WBC (4.8-10.8) X10*3/uL RBC (4.20-5.50) X10*6/uL Hgb (12.0-16.0) g/dl Hct (37.0-47.0) % MCV (80.0-98.0) fL MCH (27.0-33.0) pg RDW (11.0-16.0) % Immature Gran % (Auto) (0.0-0.4) % Neut % (Auto) (45-73) % Lymph % (Auto) (20-40) % Lymph # (Auto) (1.2-4.9) X10*3/uL Abs Immat Gran (auto) (0.00-0.03) X10*3/uL Absolute Neuts (auto) (2.0-8.3) x10*3/uL PT 16.6 H (9.9-13.0) SEC INR 1.5 H (0.9-1.1) Potassium 2.9 L (3.3-5.1) mmol/L Carbon Dioxide 30 H (22-29) mmol/L Anion Gap 10 L (12-20) BUN 8 L (9-16) mg/dL Creatinine 0.46 L (0.5-1.4) mg/dL Calcium 7.3 L D (8.4-10.2) mg/dL TIBC 86 L (228-428) mcg/dL Ferritin 4457 H (10-250) ng/mL AST 36 H D (5-31) U/L Alkaline Phosphatase 145 H D (39-117) U/L Lactate Dehydrogenase 236 H (122-220) U/L Total Creatine Kinase 22 L (26-140) U/L C-Reactive Protein 24.79 H (< or = 0.50) mg/dL Total Protein 3.9 L D (6.5-8.0) g/dL Albumin 1.8 L D (3.5-5.0) g/dL Vitamin B12 969 H (200-900) pg/mL Folate 3.7 L (> or = 4.0) ng/mL Crossmatch 06/18/21 06/18/21 06/19/21 Range/Units 12:00 12:42 05:44 WBC 10.9 H 11.0 H (4.8-10.8) X10*3/uL RBC 2.97 L 3.79 L D (4.20-5.50) X10*6/uL Hgb 7.3 L 10.0 L D (12.0-16.0) g/dl Hct 22.9 L 29.7 L D (37.0-47.0) % MCV 77.1 L 78.4 L (80.0-98.0) fL MCH 24.6 L 26.4 L (27.0-33.0) pg RDW 18.5 H 17.6 H (11.0-16.0) % Immature Gran % (Auto) 4.4 H 2.5 H (0.0-0.4) % Neut % (Auto) 87.6 H 88.6 H (45-73) % Lymph % (Auto) 5.0 L 5.4 L (20-40) % Lymph # (Auto) 0.6 L 0.6 L (1.2-4.9) X10*3/uL Abs Immat Gran (auto) 0.48 H 0.27 H (0.00-0.03) X10*3/uL Absolute Neuts (auto) 9.5 H 9.8 H (2.0-8.3) x10*3/uL PT (9.9-13.0) SEC INR (0.9-1.1) Potassium (3.3-5.1) mmol/L Carbon Dioxide (22-29) mmol/L Anion Gap (12-20) BUN (9-16) mg/dL Creatinine (0.5-1.4) mg/dL Calcium (8.4-10.2) mg/dL TIBC (228-428) mcg/dL Ferritin (10-250) ng/mL AST (5-31) U/L Alkaline Phosphatase (39-117) U/L Lactate Dehydrogenase (122-220) U/L Total Creatine Kinase (26-140) U/L C-Reactive Protein (< or = 0.50) mg/dL Total Protein (6.5-8.0) g/dL Albumin (3.5-5.0) g/dL Vitamin B12 (200-900) pg/mL Folate (> or = 4.0) ng/mL Crossmatch See Detail 06/19/21 Range/Units 05:44 WBC (4.8-10.8) X10*3/uL RBC (4.20-5.50) X10*6/uL Hgb (12.0-16.0) g/dl Hct (37.0-47.0) % MCV (80.0-98.0) fL MCH (27.0-33.0) pg RDW (11.0-16.0) % Immature Gran % (Auto) (0.0-0.4) % Neut % (Auto) (45-73) % Lymph % (Auto) (20-40) % Lymph # (Auto) (1.2-4.9) X10*3/uL Abs Immat Gran (auto) (0.00-0.03) X10*3/uL Absolute Neuts (auto) (2.0-8.3) x10*3/uL PT (9.9-13.0) SEC INR (0.9-1.1) Potassium (3.3-5.1) mmol/L Carbon Dioxide (22-29) mmol/L Anion Gap 11 L (12-20) BUN 4 L (9-16) mg/dL Creatinine 0.43 L (0.5-1.4) mg/dL Calcium 7.5 L (8.4-10.2) mg/dL TIBC (228-428) mcg/dL Ferritin (10-250) ng/mL AST (5-31) U/L Alkaline Phosphatase 138 H (39-117) U/L Lactate Dehydrogenase (122-220) U/L Total Creatine Kinase (26-140) U/L C-Reactive Protein (< or = 0.50) mg/dL Total Protein 4.4 L (6.5-8.0) g/dL Albumin 2.5 L D (3.5-5.0) g/dL Vitamin B12 (200-900) pg/mL Folate (> or = 4.0) ng/mL Crossmatch Short CBC 06/18/21 06/19/21 Range/Units 12:00 05:44 WBC 10.9 H 11.0 H (4.8-10.8) X10*3/uL Hgb 7.3 L 10.0 L D (12.0-16.0) g/dl Hct 22.9 L 29.7 L D (37.0-47.0) % Plt Count 361 377 (160-400) X10*3/uL BMP 06/18/21 06/19/21 11:58 05:44 Sodium 140 139 Potassium 2.9 L 3.4 Chloride 103 106 Carbon Dioxide 30 H 25 BUN 8 L 4 L Creatinine 0.46 L 0.43 L Calcium 7.3 L D 7.5 L Cardiac Enzymes 06/18/21 Range/Units 11:58 Total Creatine Kinase 22 L (26-140) U/L Liver Function 06/18/21 06/19/21 Range/Units 11:58 05:44 Total Bilirubin 0.5 0.7 (0.0-1.0) mg/dL Direct Bilirubin 0.4 (0.0-0.5) mg/dL AST 36 H D 24 (5-31) U/L ALT 12 11 (0-31) U/L Alkaline Phosphatase 145 H D 138 H (39-117) U/L Albumin 1.8 L D 2.5 L D (3.5-5.0) g/dL Urine 06/18/21 Range/Units 12:04 Urine Color YELLOW Urine Appearance HAZY Urine pH 6.0 (5.0-8.0) Ur Specific Glover <= 1.005 (1.005-1.025) Urine Protein NEG (NEG-TRACE) MG/DL Urine Glucose (UA) NEG (NEG) MG/DL All other labs normal. Assessment and Plan (1) Hodgkin lymphoma: Status: Acute (2) Acute dehydration: Status: Acute 60-year-old female patient with previous history of Hodgkin's lymphoma presenting now with generalized weakness, weight loss, hypotension found to have diffuse adenopathy suggestive of recurrent Hodgkin's lymphoma. Patient was evaluated by Dr. Moe and recommendation made for IR biopsy. She has a large left inguinal node should be easy to the core. There is evidence of adenopathy on both sides of the diaphragm and in the spleen. No surgical biopsy indicated at this time, will await needle biopsy results. Procedures Date of Service Date of Service: 06/18/21
[2021-06-19] MEDS: KCl 40 mEq in 0.9 % Sodium Chl 40 MEQ/1,000 ML IV.SOLN 60 MEQ IVCONT (08:01)
[2021-06-19] MEDS: Famotidine/PF 20 MG/2 ML VIAL IVPUSH ×2 (08:02→22:28)
--- NOTE | 2021-06-19 10:22 | PM.CCPN ---
Subjective Subjective Date of Service: 06/19/21 Interval History: 60-year-old female who admitted yesterday after 2 units of blood had now has a hemoglobin of 10 blood pressure is want 103/77 in normal sinus rhythm subjectively much improved just diffuse aches and pains which are nonspecific but has no neck vein distension and has good bilateral carotid upstrokes and therefore of course volume and blood resuscitated laboratory work we in 0 indicating preserved hepatic and and renal function as seen by Oncology and arranged for to have lymph no biopsy performed today and may wind up needing a bone marrow despite cardiomyopathy no signs of any congestive issues Critical Care Time (minutes): 45 Physical Exam Vital Signs: Vital Signs: Last Vital Signs Temp 99.7 F 06/19/21 10:00 Pulse 69 06/19/21 10:00 Resp 26 H 06/19/21 10:00 BP 103/77 06/19/21 10:00 Pulse Ox 95 06/19/21 10:00 BMI result Body Mass Index 30.9 no neck vein distension and adequate bilateral carotid upstrokes lungs clear and no adventitious sounds abdomen benign with no organomegaly good bowel sounds and nontender skin intact no acrocyanosis no lesions no cellulitis Objective Data Labs CBC & Chem 7: 06/19/21 05:44 06/19/21 05:44 Labs: Laboratory Results - last 24 hr 06/18/21 06/18/21 06/18/21 11:58 11:58 11:58 WBC RBC Hgb Hct MCV MCH MCHC RDW Plt Count MPV Immature Gran % (Auto) Neut % (Auto) Lymph % (Auto) [place] % (Auto) Eos % (Auto) Baso % (Auto) Lymph # (Auto) [place] # (Auto) Eos # (Auto) Baso # (Auto) Abs Immat Gran (auto) Absolute Neuts (auto) Absolute Nucleated RBC Nucleated RBC % (auto) Smear Path Review PT 16.6 H INR 1.5 H APTT 29.1 D-Dimer High Sensitivty 473 Sodium 140 Potassium 2.9 L Chloride 103 Carbon Dioxide 30 H Anion Gap 10 L BUN 8 L Creatinine 0.46 L Estim Creat Clear Calc 143.8 Estimated GFR > 60 POC Glucose Random Glucose 90 Lactic Acid 1.3 Calcium 7.3 L D Magnesium 1.6 Iron 37 TIBC 86 L % Saturation 43 Unsat Iron Binding 49 Ferritin 4457 H Total Bilirubin 0.5 Direct Bilirubin 0.4 AST 36 H D ALT 12 Alkaline Phosphatase 145 H D Lactate Dehydrogenase 236 H Total Creatine Kinase 22 L Troponin I High Sens C-Reactive Protein 24.79 H B-Natriuretic Peptide Total Protein 3.9 L D Albumin 1.8 L D Lipase 15 Vitamin B12 Folate TSH 0.87 Random Cortisol Urine Color Urine Appearance Urine pH Ur Specific [place] Urine Protein Urine Glucose (UA) Urine Ketones Urine Blood Urine Nitrite Ur Leukocyte Esterase Urine RBC Urine WBC Ur Squamous Epith Cells Amorphous Sediment Urine Bacteria Stool Occult Blood Urine Opiates Screen Urine Fentanyl Screen Ur Barbiturates Screen Ur Phencyclidine Scrn Ur Amphetamines Screen U Benzodiazepines Scrn Urine Cocaine Screen U Marijuana (THC) Screen COVID-19 (GAIL) COVID-19 Clin Com Blood Type Antibody Screen Crossmatch 06/18/21 06/18/21 06/18/21 11:58 11:58 11:58 WBC RBC Hgb Hct MCV MCH MCHC RDW Plt Count MPV Immature Gran % (Auto) Neut % (Auto) Lymph % (Auto) [place] % (Auto) Eos % (Auto) Baso % (Auto) Lymph # (Auto) [place] # (Auto) Eos # (Auto) Baso # (Auto) Abs Immat Gran (auto) Absolute Neuts (auto) Absolute Nucleated RBC Nucleated RBC % (auto) Smear Path Review PT INR APTT D-Dimer High Sensitivty Sodium Potassium Chloride Carbon Dioxide Anion Gap BUN Creatinine Estim Creat Clear Calc Estimated GFR POC Glucose Random Glucose Lactic Acid Calcium Magnesium Iron TIBC % Saturation Unsat Iron Binding Ferritin Total Bilirubin Direct Bilirubin AST ALT Alkaline Phosphatase Lactate Dehydrogenase Total Creatine Kinase Troponin I High Sens < 3.5 C-Reactive Protein B-Natriuretic Peptide 46 Total Protein Albumin Lipase Vitamin B12 969 H Folate 3.7 L TSH Random Cortisol Urine Color Urine Appearance Urine pH Ur Specific [place] Urine Protein Urine Glucose (UA) Urine Ketones Urine Blood Urine Nitrite Ur Leukocyte Esterase Urine RBC Urine WBC Ur Squamous Epith Cells Amorphous Sediment Urine Bacteria Stool Occult Blood Urine Opiates Screen Urine Fentanyl Screen Ur Barbiturates Screen Ur Phencyclidine Scrn Ur Amphetamines Screen U Benzodiazepines Scrn Urine Cocaine Screen U Marijuana (THC) Screen COVID-19 (GAIL) Negative COVID-19 Clin Com See Note Blood Type Antibody Screen Crossmatch 06/18/21 06/18/21 06/18/21 12:00 12:04 12:04 WBC 10.9 H RBC 2.97 L Hgb 7.3 L Hct 22.9 L MCV 77.1 L MCH 24.6 L MCHC 31.9 RDW 18.5 H Plt Count 361 MPV 9.4 Immature Gran % (Auto) 4.4 H Neut % (Auto) 87.6 H Lymph % (Auto) 5.0 L [place] % (Auto) 2.8 Eos % (Auto) 0.1 Baso % (Auto) 0.1 Lymph # (Auto) 0.6 L [place] # (Auto) 0.3 Eos # (Auto) 0.0 Baso # (Auto) 0.0 Abs Immat Gran (auto) 0.48 H Absolute Neuts (auto) 9.5 H Absolute Nucleated RBC 0.000 Nucleated RBC % (auto) 0.0 Smear Path Review SEE NOTE PT INR APTT D-Dimer High Sensitivty Sodium Potassium Chloride Carbon Dioxide Anion Gap BUN Creatinine Estim Creat Clear Calc Estimated GFR POC Glucose Random Glucose Lactic Acid Calcium Magnesium Iron TIBC % Saturation Unsat Iron Binding Ferritin Total Bilirubin Direct Bilirubin AST ALT Alkaline Phosphatase Lactate Dehydrogenase Total Creatine Kinase Troponin I High Sens C-Reactive Protein B-Natriuretic Peptide Total Protein Albumin Lipase Vitamin B12 Folate TSH Random Cortisol Urine Color YELLOW Urine Appearance HAZY Urine pH 6.0 Ur Specific [place] <= 1.005 Urine Protein NEG Urine Glucose (UA) NEG Urine Ketones NEG Urine Blood TRACE Urine Nitrite NEG Ur Leukocyte Esterase NEG Urine RBC 0-2 Urine WBC 0-2 Ur Squamous Epith Cells NONE Amorphous Sediment 1+ Urine Bacteria 1+ Stool Occult Blood Urine Opiates Screen Not Detected Urine Fentanyl Screen Not Detected Ur Barbiturates Screen Not Detected Ur Phencyclidine Scrn Not Detected Ur Amphetamines Screen Not Detected U Benzodiazepines Scrn Not Detected Urine Cocaine Screen Not Detected U Marijuana (THC) Screen Not Detected COVID-19 (GAIL) COVID-19 Clin Com Blood Type Antibody Screen Crossmatch 06/18/21 06/18/21 06/18/21 12:42 12:42 18:19 WBC RBC Hgb Hct MCV MCH MCHC RDW Plt Count MPV Immature Gran % (Auto) Neut % (Auto) Lymph % (Auto) [place] % (Auto) Eos % (Auto) Baso % (Auto) Lymph # (Auto) [place] # (Auto) Eos # (Auto) Baso # (Auto) Abs Immat Gran (auto) Absolute Neuts (auto) Absolute Nucleated RBC Nucleated RBC % (auto) Smear Path Review PT INR APTT D-Dimer High Sensitivty Sodium Potassium Chloride Carbon Dioxide Anion Gap BUN Creatinine Estim Creat Clear Calc Estimated GFR POC Glucose Random Glucose Lactic Acid Calcium Magnesium Iron TIBC % Saturation Unsat Iron Binding Ferritin Total Bilirubin Direct Bilirubin AST ALT Alkaline Phosphatase Lactate Dehydrogenase Total Creatine Kinase Troponin I High Sens C-Reactive Protein B-Natriuretic Peptide Total Protein Albumin Lipase Vitamin B12 Folate TSH Random Cortisol 24.0 Urine Color Urine Appearance Urine pH Ur Specific [place] Urine Protein Urine Glucose (UA) Urine Ketones Urine Blood Urine Nitrite Ur Leukocyte Esterase Urine RBC Urine WBC Ur Squamous Epith Cells Amorphous Sediment Urine Bacteria Stool Occult Blood NEGATIVE Urine Opiates Screen Urine Fentanyl Screen Ur Barbiturates Screen Ur Phencyclidine Scrn Ur Amphetamines Screen U Benzodiazepines Scrn Urine Cocaine Screen U Marijuana (THC) Screen COVID-19 (GAIL) COVID-19 Clin Com Blood Type A Positive Antibody Screen NEGATIVE Crossmatch See Detail 06/18/21 06/19/21 06/19/21 22:03 05:44 05:44 WBC 11.0 H RBC 3.79 L D Hgb 10.0 L D Hct 29.7 L D MCV 78.4 L MCH 26.4 L MCHC 33.7 RDW 17.6 H Plt Count 377 MPV 9.4 Immature Gran % (Auto) 2.5 H Neut % (Auto) 88.6 H Lymph % (Auto) 5.4 L [place] % (Auto) 3.3 Eos % (Auto) 0.0 Baso % (Auto) 0.2 Lymph # (Auto) 0.6 L [place] # (Auto) 0.4 Eos # (Auto) 0.0 Baso # (Auto) 0.0 Abs Immat Gran (auto) 0.27 H Absolute Neuts (auto) 9.8 H Absolute Nucleated RBC 0.000 Nucleated RBC % (auto) 0.0 Smear Path Review PT INR APTT D-Dimer High Sensitivty Sodium 139 Potassium 3.4 Chloride 106 Carbon Dioxide 25 Anion Gap 11 L BUN 4 L Creatinine 0.43 L Estim Creat Clear Calc 155.8 Estimated GFR > 60 POC Glucose 115 Random Glucose 77 Lactic Acid Calcium 7.5 L Magnesium Iron TIBC % Saturation Unsat Iron Binding Ferritin Total Bilirubin 0.7 Direct Bilirubin AST 24 ALT 11 Alkaline Phosphatase 138 H Lactate Dehydrogenase Total Creatine Kinase Troponin I High Sens C-Reactive Protein B-Natriuretic Peptide Total Protein 4.4 L Albumin 2.5 L D Lipase Vitamin B12 Folate TSH Random Cortisol Urine Color Urine Appearance Urine pH Ur Specific [place] Urine Protein Urine Glucose (UA) Urine Ketones Urine Blood Urine Nitrite Ur Leukocyte Esterase Urine RBC Urine WBC Ur Squamous Epith Cells Amorphous Sediment Urine Bacteria Stool Occult Blood Urine Opiates Screen Urine Fentanyl Screen Ur Barbiturates Screen Ur Phencyclidine Scrn Ur Amphetamines Screen U Benzodiazepines Scrn Urine Cocaine Screen U Marijuana (THC) Screen COVID-19 (GAIL) COVID-19 Clin Com Blood Type Antibody Screen Crossmatch Progress Note: A&P Assessment and plan (1) Anemia: Status: Acute (2) Hypoalbuminemia due to protein-calorie malnutrition: Status: Acute (3) Weight loss, abnormal: Status: Acute (4) Nonischemic congestive cardiomyopathy: Status: Acute (5) Acute hypotension: Status: Acute (6) Anemia: Status: Acute (7) Lymphoma: Status: Acute (8) Acute hypokalemia: Status: Acute (9) Acute dehydration: Status: Acute (10) Hypoalbuminemia: Status: Acute (11) Hodgkin lymphoma: Status: Acute (12) DM type 2 (diabetes mellitus, type 2): Status: Acute Assessment and Plan: proceed with lymph node biopsy and support as above Quality Stroke Does the patient have a stroke diagnosis?: No VTE Prior VTE?: No VTE Risk Level:: Medical - moderate - high VTE Device Contraindication: N/A - Device Ordered VTE Drug Contraindication: Treatment Not Indicated
--- NOTE | 2021-06-19 11:07 | MHC.CLN ---
PT IS SEVERELY MALNOURISHED PT WITH 12% SIGNIFICANT WT LOSS X 6 MONTHS WITH POOR PO INTAKE X 10 MONTHS PER PT AND CHRONIC DIARRHEA DIET RX: NPO PT REPORTED HER UBW IS 270# AND C/O CHRONIC POOR PO INTAKE AND DIARRHEA SINCE AUG 2020. SHE STATES SHE LOVES TO COOK, BUT FEELS SHE LOST HER SENSE OF TASTE/SMELL WHICH HAS AFFECTED HER APPETITE. PT RECEPTIVE TO DRINKING ENSURE WHEN DIET ADVANCES RECOMMEND ADDING ENSURE BID TO INCREASE KCALS AND PROMOTE WOUND HEALING SEE ALSO CLINICAL NUTRITION ASSESSMENT
[2021-06-19] MEDS: Acetaminophen Oral Liquid 650 MG/20.3 ML SOLUTION PO (11:30)
--- NOTE | 2021-06-19 12:04 | MHC.CM.PN ---
Met with pt to discuss d/c planning: pt resides alone and has 10 hours of Jt support per week. She drives and does not identify any barriers to care. IMM signed, HCP completed and both in chart: Pt states she may need transportation home: has used [employer] car in past but may qualify for BLS at the time of d/c.
[2021-06-19 12:56] LABS: Glucose, Whole Blood 80 mg/dL (60-115)
[2021-06-19] MEDS: Phytonadione (Vit K1) 10 MG in 0.9 % Sodium Chloride 50 ML 51 MG IV (15:31)
[2021-06-19] MEDS: Lidocaine HCl 1 % MPF 5 ML VIAL 6 ML SUBCUT (17:06)
[2021-06-19 20:40] LABS: Glucose, Whole Blood 68 mg/dL (60-115)
[2021-06-19 22:55] LABS: Glucose, Whole Blood 87 mg/dL (60-115)
[2021-06-20] VITALS (10 sets, daily range): BP systolic 100–140; BP diastolic 48–65; PULSE 65–81; RESP 17–19; TEMP 36.4–36.9; O2SAT 94–98; BMI 32.5
[2021-06-20] MEDS: KCl 40 mEq in 0.9 % Sodium Chl 40 MEQ/1,000 ML IV.SOLN 60 MEQ IVCONT (03:56)
[2021-06-20 07:41] LABS: Glucose, Whole Blood 91 mg/dL (60-115)
[2021-06-20] MEDS: Famotidine/PF 20 MG/2 ML VIAL IVPUSH ×2 (08:17→20:32)
[2021-06-20] MEDS: Albumin Human 25 % 100 ML IV ×2 (08:18→09:21)
[2021-06-20 09:50] LABS: Hemoglobin 10.4 g/dl (12.0-16.0)
[2021-06-20 09:58] LABS: INTERNATIONAL NORM RATIO 1.2 (0.9-1.1); Prothrombin Time 13.5 SEC (9.9-13.0)
--- NOTE | 2021-06-20 11:06 | MHC.CM.PN ---
CM MET WITH PT AT HER REQUEST. PT REPORTS SHE HAS MANY COMPLAINTS INCLUDING FEELING SHE HAS RECURRING CANCER BECAUSE HER ONCOLOGIST ALLOWED IT TO HAPPEN . PT VERY CONCERNED ABOUT HER TREATMENT PLAN AND ASKS THAT SOMEONE REVIEW IT WITH HER DAILY PT REPORTS SHE WAS LIVING ALONE MANAGER AUDIT AND HAD 10 HOURS OF DENTAL OFFICE ASSISTANT SERVICES PT REPORTS SHE WOULD LIKE TO GO HOME WITH PT AT [place]
[2021-06-20 11:44] LABS: Glucose, Whole Blood 124 mg/dL (60-115)
[2021-06-20] MEDS: Acetaminophen Oral Liquid 650 MG/20.3 ML SOLUTION PO ×2 (12:20→20:37)
--- NOTE | 2021-06-20 13:33 | HO.PM.IMPN ---
Subjective Subjective Date of Service: 06/22/21 Interval History: severe diffuse lymphadenopathy?, anemia ,hypotension Review of Systems Denies any new complaint of chest pain or shortness of breath or abdominal pain or fever or chills or nausea or vomiting Denies any cough Denies any weakness or numbness. Physical Exam Vital Signs: Vital Signs: Last Vital Signs Temp 97.8 F 06/20/21 11:14 Pulse 77 06/20/21 11:14 Resp 19 06/20/21 11:14 BP 120/63 06/20/21 11:14 Pulse Ox 95 06/20/21 11:14 BMI result Body Mass Index 32.5 Physical exam: Appearance: Alert.? Oriented X3.? not in distress.? cvs: rrr, [id number] , no murmur res: clear to auscultation ,no rhonchii or wheezing abd: no rebound or guarding ,nt, bs present. ext pulses present , no cyanosis , moves all extermities , generlaised weak neuro: axo3 , nonfocal. Objective Data Active Medications Acetaminophen (Acetaminophen Oral Liquid 650 Mg/20.3 Ml Solution) 650 mg PO Q6H PRN PRN Reason: Pain, Moderate (Pain Scale 4-6 Last Admin: 06/20/21 12:20 Dose: 650 mg Documented by: MAYO Albuterol Sulfate (Albuterol Sulfate 90 Mcg 8 Gm Inhaler) 2 puff INHALE Q6H PRN PRN Reason: shortness of breath or wheezing Carvedilol (Carvedilol 3.125 Mg Tablet) 3.125 mg PO BID [facility]; Protocol Dextrose (Dextrose 50 % 25 Gm/50 Ml Vial) 25 gm IVPUSH Q15M PRN; Protocol PRN Reason: per Hypoglycemia Standing Ord. Enoxaparin Sodium (Enoxaparin Sodium 40 Mg/0.4 Ml Syringe) 40 mg SUBCUT Q24H [facility] Last Admin: 06/19/21 02:17 Dose: Not Given Documented by: BIN Non-Admin Reason: See Note Comments: to start with next dose Famotidine (Famotidine/Pf 20 Mg/2 Ml Vial) 20 mg IVPUSH BID [facility] Last Admin: 06/20/21 08:17 Dose: 20 mg Documented by: MAYO Fluoxetine HCl (Fluoxetine Hcl 20 Mg Capsule) 20 mg PO BEDTIME AMPARO Fluticasone Propionate (Fluticasone Propionate Nasal 16 Gm [place]) 1 spray NOSTRIL-B DAILY AMPARO Last Admin: 06/20/21 13:30 Dose: Not Given Documented by: MAYO Non-Admin Reason: Med Not Available Folic Acid (Folic Acid 1 Mg Tablet) 2 mg PO DAILY AMPARO Glucose (Glucose Gel 15 Gm Gel..Gram.) 15 gm PO Q15M PRN; Protocol PRN Reason: per Hypoglycemia Standing Ord. Hydroxyzine HCl (Hydroxyzine Hcl 25 Mg Tablet) 25 mg PO BID PRN PRN Reason: for itch Melatonin (Melatonin 3 Mg Tablet) 6 mg PO BEDTIME PRN PRN Reason: Sleep Pharmacy Consult (Consult Rx Perform Med Rec) 1 each MISCELLANE ONCE PRN PRN Reason: Consult order Labs CBC & Chem 7: 06/20/21 09:32 06/19/21 05:44 Labs: Laboratory Results - last 24 hr 06/19/21 06/19/21 06/20/21 19:49 22:50 07:25 PT INR POC Glucose 68 87 91 06/20/21 06/20/21 09:32 11:13 PT 13.5 H INR 1.2 H POC Glucose 124 H Microbiology Microbiology Results: Microbiology 06/18/21 11:58 Blood Culture - Preliminary Blood - Venous No growth after 24 hours. 06/18/21 11:58 Blood Culture - Preliminary Blood - Venous No growth after 24 hours. Assessment and Plan (1) Lymphoma: Status: Acute (2) Acute hypokalemia: Status: Acute (3) Hypoalbuminemia due to protein-calorie malnutrition: Status: Acute Assessment and Plan: 1. Severe lymphadenopathy: Patient history of Hodgkin lymphoma and chemotherapy weight loss history-poor oral inatke /possible underlying maliganancy s/p lymph node biopsy yesterday could not tell in detail but at least has functional decline from months but getting worse from last couple of weeks as for the patient, currently moves all extremities but refuses to participate when asked. hypoalbuminemia -nutritional/ possible underlying Malignancyalso might be contributing.added albumin 2. anemia: thought to be? related to possible underlying maliganancy/bone marrow?infiltration or suppression fobt neg less likely hemolysis-peripheral smear does not show. hepatoglobin pending iron studies noted mildly low folate: Added if folate replacement received 3 PRBC- H&H seems in the range of 10 3. hypotension: Related to anemia/ poor oral intake patient 1 in ICU received PRBC 3, also IV fluid and pressors: Subsequently patient seems to be improved blood pressure oliver and H&H is stable in range of 10. blood pressures improved- will slowly improve introduce Coreg at low doses, hold losartan for now- slowly introduce as blood pressure allows. 4. moderate protein calori malnutrition: added supplement nutritional eval added iv albumin 5.Htn : see above. 6. dm:? fs : 80-120 range continue to moniter avoid coverage until fs consistently around 200 range 7. dvt prophylax: scd Quality Stroke Does the patient have a stroke diagnosis?: No VTE Prior VTE?: No VTE Risk Level:: Medical - moderate - high VTE Device Contraindication: N/A - Device Ordered VTE Drug Contraindication: Treatment Not Indicated
[2021-06-20] MEDS: Folic Acid 1 MG TABLET 2 MG PO (13:34)
[2021-06-20] MEDS: carvediloL 3.125 MG TABLET PO ×2 (13:35→20:32)
--- NOTE | 2021-06-20 14:05 | MHC.CM.PN ---
PATIENT STATES THAT SHE IS AGREEABLE TO STR REFERRALS ANYWHERE BUT [facility] PATIENT AGREEABLE TO REFERRALS IN [place] AND [place] TO BE PLACED. MODERNA VACCINE CARD UPLOADED AND INFORMATION DOCUMENTED INTO SUMMARY. PATIENT TELLS THIS WRITE THAT SHE FEELS THAT NOBODY UNDERSTANDS HER AILMENTS AND SHE FEELS UNHEARD WHEN ASKED WHAT IT IS THAT PATIENT FEELS HER NEEDS FOR BEING HEARD ARE NOT MET, SHE TELLS THIS SAMPLE BOX MAKER I WAS ON THE FLOOR AND COULD NOT GET UP. I AM WEAK. I WANT OT BE STRONG AGAIN THIS SAMPLE [employer]OX [employer]KER REINFORCES THAT HER CONCERNS ARE VALID AND HAVE BEEN HEARD. CASE MANAGEMENT TO FOLLOW UP WITH SNF REFERRALS. RN AWARE OF ATTEMPTS
--- NOTE | 2021-06-20 15:47 | MHC.CM.PN ---
[facility] WILL REVIEW FOR A BED OFFER TOMORROW AND, IF ACCEPTING, WILL ATTEMPT INSURANCE AUTHORIZATION. PATIENT IS AWARE OF BOTH FACILITES SHOWING INTEREST. NAMES OF FACILITIES WRITTEN ON POST-IT NOTE AND GIVEN TO PATIENT [facility] IF [facility] DO [facility]
[2021-06-20 16:46] LABS: Glucose, Whole Blood 169 mg/dL (60-115)
[2021-06-20] MEDS: FLUoxetine HCl 20 MG CAPSULE PO (20:32)
[2021-06-21 04:00] VITALS: BP 100/52; PULSE 73; RESP 17; TEMP 36.2; O2SAT 94
[2021-06-21 06:00] VITALS: BMI 32.1
[2021-06-21 07:33] VITALS: BP 110/69; PULSE 74; RESP 18; TEMP 37.1; O2SAT 98
[2021-06-21 07:43] LABS: Glucose, Whole Blood 111 mg/dL (60-115)
--- NOTE | 2021-06-21 07:52 | PM.DS ---
DS: Providers Provider Date of Service: 06/21/21 Date of admission: 06/18/21 17:26 Primary care physician: Dolores Petersen MD DS: Diagnosis Discharge Diagnosis (1) Anemia: Status: Acute (2) Hypoalbuminemia due to protein-calorie malnutrition: Status: Acute (3) Weight loss, abnormal: Status: Acute (4) Nonischemic congestive cardiomyopathy: Status: Acute (5) Acute hypotension: Status: Acute (6) Anemia: Status: Acute (7) Lymphoma: Status: Acute (8) Acute hypokalemia: Status: Acute (9) Acute dehydration: Status: Acute (10) Hypoalbuminemia: Status: Acute (11) Hodgkin lymphoma: Status: Acute (12) DM type 2 (diabetes mellitus, type 2): Status: Acute DS: Summary Hospital Course Hospital Course: ?60 year old lady, with a previous history of Hodgkin's lymphoma diagnosed about 6 years ago.She was treated in [place].? Apparently she got ABVD x6, in 2015.Recently she has been under the care of Dr. Sandy at [facility]. ?She now presents with easy fatigability, night sweats, nausea, diarrhea, anorexia and a [address] scan of the chest and abdomen and pelvis was done which revealed: Diffuse lymphadenopathy within the chest, abdomen, and pelvis which may be related to lymphoma. Findings suspicious for metastatic disease to the spleen. Diffuse fatty infiltration of the liver. Cholelithiasis with question fluid within the gallbladder wall and possible gallbladder wall calcification versus calcification of the periphery of some gallstones. Presacral and pericolonic fat stranding within the pelvis with presacral mass is not excluded. Patient was admitted to ICU -because of severe lymphadenopathy, hypertension, anemia:patient came to the hospital because of hypotension/ hypovolemia and severe anemia- patient was admitted to intensive care unit for aggressive resuscitation fluid oliver as well as received 3 RBC, sayspressor stopped: patient was subsequently sent to the floor because of pending lymph node biopsy. Patient had is status post biopsy, tolerated well ,patient H&H is stable around 10. patient is still generally weak but moves all extremities, still refused to come out of the bed. seen by PT- recommended rehab. severe lymphadenopathy : patient has history of Hodgkin lymphoma, seen by Oncology: anemia possible related to underlying lymphoma vs bone marrow suppression Diffuse lymphadenopathy within the chest, abdomen, and pelvis which may be related to lymphoma. ?Findings suspicious for metastatic disease to the spleen. patient had lymph node biopsy, pathology pending which needs to be followed out out patiently with Oncology, follow-up with Dr. Moe outpatient protein calorie malnutrition: Probably multifactorial, decrease oral intake, Also possible related to underlying malignancy encouraged to eat. Continue diet supplements Ensure consider nutrition evaluation outpatient. hx of cardiomyopathy:started coreg low dose as well as slowly added back losartan - Monitor blood pressure and renal function and electrolytes, and also adjust medications Coreg and losartan according to blood pressure. Patient has staley -placed for Fluid management probably is in ICU. She is currently saying that she does not want to be removed for next 24-48 hours due to question of incontinence, please give her a voiding trial in 24-48 hours. Consider outpatient urology evaluation If needed. patient will benefit from less than 30 day stay in rehab. Above management discussed with the patient in detail length she understand and in agreement with the above plan, time spent 50 minutes and 50% time spent on counseling. Significant findings: As above. Procedures performed: None. Treatment and response: As above. Complications: None. Time Spent with Patient Time attestation: Total time spent providing and/or coordinating discharge services: Discharge coordination time: Greater than 30 minutes Quality: Stroke Does the patient have a stroke diagnosis?: No Physical Exam Vital Signs: Vital Signs: Last Vital Signs Temp 98.7 F 06/21/21 07:33 Pulse 74 06/21/21 07:33 Resp 18 06/21/21 07:33 BP 110/69 06/21/21 07:33 Pulse Ox 98 06/21/21 07:33 BMI result Body Mass Index 32.1 ? Appearance: Alert.? Oriented X3.? not in distress.? Eyes: Pupils equal, round and reactive to light.? Sclera nonicteric.? ENT: Pharynx normal.? Moist mucous membranes. cvs: rrr, [id number] , no murmur res: clear to auscultation ,no rhonchii or wheezing abd: no rebound or guarding ,nt, bs present. ext pulses present , no cyanosis ,Gait well balanced well coordinated. neuro: axo3 , nonfocal. DS: Data Data Completed and Pending Pending studies at discharge: Pending at discharge 06/19/21 16:39 Cytology [PTH] Routine Labs on day of discharge: Laboratory Results - last 24 hr 06/20/21 06/20/21 06/20/21 09:32 09:32 11:13 Hgb 10.4 L Hct 31.0 L PT 13.5 H INR 1.2 H POC Glucose 124 H 06/20/21 06/21/21 15:49 07:35 Hgb Hct PT INR POC Glucose 169 H 111 Preliminary micro results at discharge 06/18/21 11:58 Blood Culture - Preliminary Blood - Venous No growth after 48 hours. 06/18/21 11:58 Blood Culture - Preliminary Blood - Venous No growth after 48 hours. Additional Comments Additional comments: head ct: IMPRESSION: No acute intracranial abnormality. chest ct: CT/CT chest w con IMPRESSION: Diffuse lymphadenopathy within the chest, abdomen, and pelvis which may be related to lymphoma. ? Findings suspicious for metastatic disease to the spleen. ? Diffuse fatty infiltration of the liver. ? Cholelithiasis with question fluid within the gallbladder wall and possible gallbladder wall calcification versus calcification of the periphery of some gallstones. ? Presacral and pericolonic fat stranding within the pelvis with presacral mass is not excluded.? Discharge Plan Discharge Patient Disposition: [facility] Discharge Diagnosis: Anemia, hypovolemia, severe lymphadenopathy concerning malignancy status post lymph node biopsy Referrals: Dolores Petersen MD [Primary Care Provider] - 1 Week Paula Moe MD [Physician] - 1 Week (fu with biopsy) Discharge Medications: Continued albuterol sulfate [ProAir HFA] 90 mcg/actuation HFA aerosol inhaler 2 puff inhalation Q6H PRN (Reason: shortness of breath or wheezing) Qty: 17 RF: 5 fluticasone propionate 50 mcg/actuation spray,suspension 1 spray intranasal DAILY Qty: 16 RF: 4 hydroxyzine HCl 25 mg tablet 25 mg PO QD-BID PRN (Reason: for itch) RF: 0 fluoxetine [Prozac] 20 mg capsule 20 mg PO QPM RF: 0 Changed carvedilol 12.5 mg tablet 3.125 mg PO BID 90 Days Qty: 60 RF: 0 losartan 25 mg tablet 25 mg PO DAILY 90 Days Qty: 180 RF: 0 Discharge Orders: Discharge Order (Routine); Ordered 06/21/21 Ordered By: Bassam Rose Diet: advance to usual diet, diabetic diet, low fat, low cholesterol and low salt diet Activity on Discharge: As tolerated Stand Alone Forms: Patient Portal Discharge page Care Plan Goals: patient came to the hospital because of hypotension/ hypovolemia and severe anemia- patient was admitted to intensive care unit for aggressive resuscitation fluid oliver as well as received 3 RBC, sayspressor stopped: patient was subsequently sent to the floor because of pending lymph node biopsy. Patient had is status post biopsy, tolerated well ,patient H&H is stable around 10. patient is still generally weak but moves all extremities, still refused to come out of the bed. seen by PT- recommended rehab. severe lymphadenopathy : patient has history of Hodgkin lymphoma, seen by Oncology: anemia possible related to underlying lymphoma vs bone marrow suppression Diffuse lymphadenopathy within the chest, abdomen, and pelvis which may be related to lymphoma. ?Findings suspicious for metastatic disease to the spleen. patient had lymph node biopsy, pathology pending which needs to be followed out out patiently with Oncology, follow-up with Dr. Moe outpatient protein calorie malnutrition: Probably multifactorial, decrease oral intake, Also possible related to underlying malignancy encouraged to eat. hx of cardiomyopathy:started coreg low dose as well as slowly added back losartan - Monitor blood pressure and renal function and electrolytes, and also adjust medications Coreg and losartan according to blood pressure. Health Concerns: as above. Plan of Treatment: As above. Assessment: As above. Discharge Date/Time: 06/21/21 18:12
[2021-06-21] MEDS: Famotidine/PF 20 MG/2 ML VIAL IVPUSH (08:54)
[2021-06-21] MEDS: Folic Acid 1 MG TABLET 2 MG PO (08:55)
[2021-06-21] MEDS: Fluticasone Propionate Nasal 16 GM SPRAY 1 SPRAY NOSTRIL-B (08:55)
[2021-06-21] MEDS: carvediloL 3.125 MG TABLET PO (08:55)
[2021-06-21 11:33] LABS: COVID-19 Test Negative (Negative)
[2021-06-21 11:41] LABS: Glucose, Whole Blood 114 mg/dL (60-115)
[2021-06-21 11:55] VITALS: BP 118/68; PULSE 82; RESP 19; TEMP 36.8; O2SAT 96
[2021-06-21 13:11] LABS: Influenza A PCR NEGATIVE (Negative); Influenza B PCR NEGATIVE (Negative); Resp Syncy Virus RNA Qual PCR NEGATIVE (Negative); SARS COV2 PCR INHOUSE NEGATIVE (Negative)
--- NOTE | 2021-06-21 14:42 | MHC.CM.ED ---
PATIENT IS DC TO [facility] FOR 5 PM RN, PATIENT, AND UNIT AWARE OF PLAN. IMM 1217 IN CHART
[2021-06-21 16:33] LABS: Glucose, Whole Blood 85 mg/dL (60-115)
[2021-06-23 13:40] LABS: Haptoglobin 305 mg/dL (43-212)
== END 2021-06-21 18:12 | disposition skilled nursing facility (03) | DRG 841 ==
LOC: HO.ED 17:57 → HO.EDOVER 17:59 → HO.ICU 18:28 → HO.S3 06-19 11:33
PROVIDERS: Nurse Practitioner Family; Physician Assistant Medical; Radiology Diagnostic Radiology; Admitting Provider Internal Medicine Cardiovascular Disease; Emergency Provider Emergency Medicine; PCP Internal Medicine; Visit Provider Internal Medicine
DX: C81.98 Hodgkin lymphoma, unspecified, lymph nodes of multiple sites (principal); I42.7 Cardiomyopathy due to drug and external agent; E44.0 Moderate protein-calorie malnutrition; E87.6 Hypokalemia; E11.9 Type 2 diabetes mellitus without complications; E86.0 Dehydration; K80.20 Calculus of gallbladder without cholecystitis without obstruction; I95.9 Hypotension, unspecified; D63.0 Anemia in neoplastic disease; E88.09 Other disorders of plasma-protein metabolism, not elsewhere classified; Z68.32 Body mass index [BMI] 32.0-32.9, adult; T45.1X5A Adverse effect of antineoplastic and immunosuppressive drugs, initial encounter; Y92.9 Unspecified place or not applicable; Z20.822 Contact with and (suspected) exposure to COVID-19; Z87.891 Personal history of nicotine dependence; Z79.51 Long term (current) use of inhaled steroids; Z79.899 Other long term (current) drug therapy
CPT/HCPCS: 0241U; 36415; 36430; 38505; 70450; 71046; 71260; 74177; 76942; 80048; 80053; 80076; 80307; 81001; 81003; 82272; 82533; 82550; 82607; 82728; 82746; 82947; 83010; 83540; 83605; 83615; 83690; 83735; 83880; 84443; 84484; 85014; 85018; 85025; 85379; 85610; 85730; 86140; 86850; 86900; 86901; 86923; 87040; 87635; 88184; 88185; 88300; 88305; 88341; 88342; 93005; 96361; 96365; 96366; 96367; 97162; 99285; 99291; 99292; J3430; J3475; P9016; P9047; Q9967

== ENCOUNTER 2021-07-09 14:53 | Inpatient (IN) | payer MEDICARE, MEDICAID, SELFPAY ==
--- NOTE | ~2021-07-09 | CT_ITS ---
EXAMINATION: CT HEAD WITHOUT CONTRAST CLINICAL INFORMATION: Altered mental status. COMPARISON: CT head 06/18/2021 TECHNIQUE: Contiguous axial imaging was performed from the skull base to vertex without intravenous administration of contrast. Coronal and sagittal reformatted images are performed at the CT scanner. [This CT examination was performed using dose optimization techniques as appropriate, variously including the following: *Automated exposure control *Adjustment of mA and/or kV according to patient size (this includes techniques or standardized protocols for targeted exams where dose is matched to indication/reason for exam; i.e. extremities or head) *Use of iterative reconstruction technique] DLP: 727 mGy-cm. FINDINGS: There is no evidence of acute intracranial hemorrhage or territorial infarction. No abnormal mass-effect or midline shift is seen. Manuel to white matter differentiation is well preserved. No extra-axial fluid collections are identified. The ventricles are normal in size. There is no abnormal attenuation within the brain parenchyma. There is no osseous abnormality. The mastoid air cells and visualized portions of the paranasal sinuses are well-aerated. CT/CT head/brain wo con IMPRESSION: No acute intracranial pathology.
--- NOTE | ~2021-07-09 | US_ITS ---
EXAMINATION: US ABDOMEN LIMITED CLINICAL INFORMATION: Right upper quadrant pain.. COMPARISON: CT abdomen pelvis 06/18/2021 TECHNIQUE: Real-time imaging of the right upper quadrant abdominal viscera. Color Doppler exam used. FINDINGS: PANCREAS: Normal. LIVER: Increased echogenicity of liver parenchyma consistent with fatty change. Small hepatic cyst left lobe liver adjacent to each other each measuring about 1.4 cm. No suspicious liver lesions. No intrahepatic bile duct dilatation. GALLBLADDER: Multiple gallstones in gallbladder. Largest measuring about 3 cm in diameter. No gallbladder wall thickening or pericholecystic edema. COMMON BILE DUCT: Common bile duct measures 0.4 cm. RIGHT KIDNEY: Normal. No hydronephrosis. No renal calculi or suspicious focal parenchymal lesions. Anechoic cyst measuring 4.5 cm. No follow-up imaging is recommended for simple renal cyst. The kidney measures 12.3 cm in maximum dimension. FREE: None. US/US abdomen limited IMPRESSION: 1. Diffuse fatty change of liver. 2. Cholelithiasis. No acute change of gallbladder wall. No bile duct dilatation.
--- NOTE | ~2021-07-09 | CT_ITS ---
EXAMINATION: CT CHEST WITHOUT CONTRAST CLINICAL INFORMATION: Tachycardia, shortness of breath and cough. COMPARISON: 06/18/2021 TECHNIQUE: Multidetector volumetric CT imaging of the chest was done. Axial MIP volume rendering provided. Sagittal and coronal reformatted images were obtained. This CT examination was performed using dose optimization techniques as appropriate, variously including the following: *Automated exposure control *Adjustment of mA and/or kV according to patient size (this includes techniques or standardized protocols for targeted exams where dose is matched to indication/reason for exam; i.e. extremities or head) *Use of iterative reconstruction technique DLP: 319 mGy-cm FINDINGS: LUNGS AND PLEURA: Trachea and central airways are widely patent and normal in caliber. Again noted is a small lymph node along the minor fissure. A persistent small opacity of 0.4 cm AP dimension in the right middle lobe probably represents mucus in a peripheral bronchus. A new 0.5 x 1 cm irregular nodular opacity is present in the lateral left upper lobe (image 185, series 5). The right diaphragm is mildly elevated and linear opacities of atelectasis are present in the right middle lobe and lateral right lower lobe. No consolidation or pleural effusion. CARDIOVASCULAR: The heart size is normal. No pericardial effusion. Mild atherosclerotic calcification of coronary arteries and thoracic aorta. No aortic aneurysm. Pulmonary arteries are unremarkable for noncontrast examination. MEDIASTINUM AND LOWER NECK: The esophagus is grossly normal. Thyroid gland is atrophied. LYMPHATICS: No axillary or internal mammary lymphadenopathy. Lymph node measurements are given in short axis dimension. A right hilar lymph node is 1.5 cm. There are persistently enlarged lymph nodes within the mediastinum. Largest para-aortic lymph node at the level of the aortic arch is 3.3 cm, compared to 3 cm on 06/18/2021. A stable subcarinal lymph node is 1.4 cm. UPPER ABDOMEN: Cholelithiasis. Persistent splenomegaly. Diffuse hepatic steatosis. 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 Multilevel moderate to severe discovertebral degenerative change of the visualized lower cervical and thoracic spine. No aggressive osseous lesion. CT/CT chest wo con IMPRESSION: * No evidence of pulmonary edema or pleural effusion. * The mediastinal and hilar lymphadenopathy remain similar in appearance compared to 06/18/2021. The patient has history of lymphoma. * A 0.5 x 1 cm irregular nodule of the lateral left upper lobe is new compared to 06/18/2021. This is an indeterminate finding. It is uncertain whether this is related to patient's lymphoma. It might represent focal peribronchial inflammatory change or perhaps an infectious nodule, but suspicion for infection is low given lack of any other new pulmonary abnormalities. Follow-up imaging decisions should be based on patient's clinical course. Consider noncontrast chest CT follow-up in 3 months to determine whether this resolves.
--- NOTE | ~2021-07-09 | XR_ITS ---
EXAMINATION: XR CHEST CLINICAL INFORMATION: Cough. COMPARISON: 06/18/2021 chest radiographs. TECHNIQUE: Frontal view of the chest was obtained. FINDINGS: No significant abnormality is noted involving the heart, lungs, mediastinum, bony thorax or soft tissues. XR/XR chest 1V IMPRESSION: No acute cardiopulmonary process.
--- NOTE | ~2021-07-09 | CT_ITS ---
EXAMINATION: CT ANGIOGRAM OF THE CHEST WITH AND WITHOUT CONTRAST (CT PULMONARY ANGIOGRAM FOR PE) CLINICAL INFORMATION: Reason for Exam lymphoma, hypoxia, tachycardia COMPARISON: None TECHNIQUE: Prior to contrast administration, noncontrast localization images were obtained. Subsequently, multidetector volumetric imaging was performed from the thoracic inlet to below the diaphragms following the administration of 80 mL Omnipaque 350 intravenous contrast. No contrast reaction reported Sagittal, coronal, and MIP oblique sagittal reformatted images were obtained on the CT workstation, uploaded to PACS, and reviewed. This CT examination was performed using dose optimization techniques as appropriate, variously including the following: *Automated exposure control *Adjustment of mA and/or kV according to patient size (this includes techniques or standardized protocols for targeted exams where dose is matched to indication/reason for exam; i.e. extremities or head) *Use of iterative reconstruction technique Total exam dose-length product mGy-cm FINDINGS: QUALITY OF STUDY/CONTRAST BOLUS: Satisfactory. PULMONARY ARTERIES: No central or segmental pulmonary emboli. Evaluation of the smaller subsegmental pulmonary arteries is limited due to artifact from respiratory motion. THORACIC AORTA: No aneurysm or dissection. LUNG: There is a 5 x 10 mm nodule in the left upper lobe axial image 167 series 8 that is stable. There is atelectasis at the lung bases, right greater than left. PLEURA: No pleural effusion or pneumothorax. There is a small right diaphragmatic pleural calcification that is stable. MEDIASTINUM: There are no enlarged mediastinal and left hilar lymph nodes unchanged from exam from earlier today. The heart does not appear enlarged. There is mild coronary artery calcification. There is no pericardial effusion. CHEST WALL/AXILLA: No axillary or internal mammary lymphadenopathy. OSSEOUS STRUCTURES: No acute or suspicious osseous abnormality. There are degenerative changes of the spine. UPPER ABDOMEN: The liver and spleen appear prominent. The liver is low in attenuation suggestive of fatty infiltration. There are gallstones in the gallbladder. No reflux of contrast into the hepatic veins to suggest elevated right heart pressures. CT/CT angio chest PE protocol IMPRESSION: Limited exam due to artifact from respiratory motion. No evidence of large or central pulmonary embolism. Smaller subsegmental pulmonary arteries not well evaluated. Stable left upper lobe nodule and enlarged mediastinal and right hilar lymph nodes. VTE: negative
[2021-07-09 15:07] VITALS: BP 138/65; PULSE 117; O2SAT 88
[2021-07-09 15:30] VITALS: BP 130/72; PULSE 117; RESP 28; TEMP 37.1; O2SAT 94; BMI 35.0
[2021-07-09 16:52] LABS: Basophils Absolute Auto 0.1 X10*3/uL (0.0-0.2); Basophils Percent Auto 0.4 % (0-2); Hematocrit 32.4 % (37.0-47.0); Hemoglobin 10.4 g/dl (12.0-16.0); Imm Gran Abs Auto 0.69 X10*3/uL (0.00-0.03); Lymphocytes Absolute Auto 0.8 X10*3/uL (1.2-4.9); Lymphocytes Percent Auto 5.5 % (20-40); MANUAL DIFF FLAG NO; Mean Corpuscular HGB Conc 32.1 g/dl (31.0-35.0); Mean Corpuscular Hemoglobin 26.7 pg (27.0-33.0); Mean Corpuscular Volume 83.3 fL (80.0-98.0); Mean Platelet Volume 9.5 fL (9.4-12.3); Monocytes Absolute Auto 0.6 X10*3/uL (0.1-1.2); Monocytes Percent Auto 4.2 % (2-11); Neutrophils Absolute Auto 11.7 x10*3/uL (2.0-8.3); Neutrophils Percent Auto 84.9 % (45-73); Platelet Count 516 X10*3/uL (160-400); Red Blood Count 3.89 X10*6/uL (4.20-5.50); Red Cell Distribution Width 22.4 % (11.0-16.0); White Blood Count 13.7 X10*3/uL (4.8-10.8)
--- NOTE | 2021-07-09 16:53 | ED.AMS ---
HPI - Altered Mental Status General Chief Complaint: Altered Mental Status Stated Complaint: AMS,-RAPID COVID PER SNF Time Seen by Provider: 07/09/21 15:34 Source: EMS Mode of arrival: EMS Limitations: altered mental status History of Present Illness HPI narrative: Patient comes in by ambulance from [facility]. Staff sent the patient for increased confusion and altered mental status. Staff at the [facility] reported to EMS that the patient has not been herself today. Patient is awake and alert, but is unable to give any history. Patient is talking but answering questions inappropriately. MD complaint: altered mental status Related Data Home Medications Medication Instructions Recorded Confirmed fluoxetine 20 mg capsule (Prozac) 20 mg PO QPM 06/18/21 06/18/21 hydroxyzine HCl 25 mg tablet 25 mg PO QD-BID PRN 06/18/21 06/18/21 Previous Rx's Medication Instructions Recorded albuterol sulfate 90 mcg/actuation 2 puff INHALATION Q6H PRN #17 g 01/02/21 aerosol inhaler (ProAir HFA) fluticasone propionate 50 1 spray INTRANASAL DAILY #16 g 04/21/21 mcg/actuation nasal spray,suspension carvedilol 12.5 mg tablet 3.125 mg PO BID 90 Days #60 tab 06/21/21 losartan 25 mg tablet 25 mg PO DAILY 90 Days #180 tab 06/21/21 Allergies Allergy/AdvReac Type Severity Reaction Status Date / Time valsartan [Entresto] Allergy Unknown fatigue, Verified 11/06/20 12:36 myalgia Review of Systems Review of Systems: Yes Unobtainable due to mental condition PMFSH Past Medical History Medical History Acute dehydration Acute hypokalemia Acute hypotension Anemia CHF (congestive heart failure) Colon cancer Depression DM type 2 (diabetes mellitus, type 2) Hodgkin disease Hodgkin lymphoma Hyperlipidemia Hypoalbuminemia due to protein-calorie malnutrition Lymphoma Neuropathy Nonischemic congestive cardiomyopathy Rotator cuff arthropathy of left shoulder Shoulder pain Sinusitis, acute Weight loss, abnormal Surgical History History of ankle surgery History of femur fracture History of lumbar fusion Family History Family History Mother Small cell lung cancer Father Myocardial infarction Son No problems noted. Social History Social History Household Members: Other Household Members Other:: ALONE Housing: Apartment Do you presently have visiting nurse or other home services: Yes ([employer] 10.5 HRS/WEEK) Alcohol intake: never Patient Tobacco Use Status: Former Tobacco user Tobacco use type: Cigarette Second Hand Smoke Exposure: No Advance Directives: No Advance Directives Information Provided: Yes service: No Current occupational status: disabled Physical Exam Vital Signs: Vital Signs: Last Vital Signs Temp 98.8 F 07/09/21 15:30 Pulse 120 H 07/09/21 19:41 Resp 24 H 07/09/21 19:41 BP 113/70 07/09/21 19:41 Pulse Ox 93 07/09/21 19:41 Oxygen Flow Rate 2 07/09/21 15:30 BMI result Body Mass Index 35.0 Const: Other: Appearance: Alert. Oriented X3. No acute distress. Confused, awake, talking but answering questions inappropriately Eyes: Pupils equal, round and reactive to light. ENT: Pharynx normal. Neck: Normal inspection. Neck supple. No lymph nodes noted. No crepitus CVS: Normal heart rate and rhythm. Pulses normal. Normal S1 and S2 Respiratory: No respiratory distress. Breath sounds normal. No Wheezing. No rales Abdomen: Soft and nontender. No rigidity. No distention Skin: Skin warm and dry. Normal skin color. Normal skin turgor. Extremities: No lower extremity edema. No Lacerations. No Rash Neuro: Oriented X 3. No motor deficit. No sensory deficit. Moving all extermities. No slurred speech. Course Course Course Narrative: Patient's labs are at baseline. urinalysis so far shows negative urine nitrate and leukocyte esterase. Patient will likely be returning to [facility] soon. MDM - Altered Mental Status Lab Data Result diagrams: 07/09/21 16:42 07/09/21 16:42 Labs: Lab Results 07/09/21 07/09/21 07/09/21 Range/Units 16:42 16:42 16:42 WBC 13.7 H (4.8-10.8) X10*3/uL RBC 3.89 L (4.20-5.50) X10*6/uL Hgb 10.4 L (12.0-16.0) g/dl Hct 32.4 L (37.0-47.0) % MCV 83.3 (80.0-98.0) fL MCH 26.7 L (27.0-33.0) pg MCHC 32.1 (31.0-35.0) g/dl RDW 22.4 H (11.0-16.0) % Plt Count 516 H D (160-400) X10*3/uL MPV 9.5 (9.4-12.3) fL Immature Gran % (Auto) 5.0 H (0.0-0.4) % Neut % (Auto) 84.9 H (45-73) % Lymph % (Auto) 5.5 L (20-40) % [place] % (Auto) 4.2 (2-11) % Eos % (Auto) 0.0 (0-4) % Baso % (Auto) 0.4 (0-2) % Lymph # (Auto) 0.8 L (1.2-4.9) X10*3/uL [place] # (Auto) 0.6 (0.1-1.2) X10*3/uL Eos # (Auto) 0.0 (0.0-0.4) X10*3/uL Baso # (Auto) 0.1 (0.0-0.2) X10*3/uL Abs Immat Gran (auto) 0.69 H (0.00-0.03) X10*3/uL Absolute Neuts (auto) 11.7 H (2.0-8.3) x10*3/uL Absolute Nucleated RBC 0.000 (0.0-0.012) X10*3/uL Nucleated RBC % (auto) 0.0 (0.0-0.2) /100WBC PT 12.8 (9.9-13.0) SEC INR 1.1 (0.9-1.1) Sodium 134 L (135-145) mmol/L Potassium 4.4 D (3.3-5.1) mmol/L Chloride 94 L (96-108) mmol/L Carbon Dioxide 30 H (22-29) mmol/L Anion Gap 14 (12-20) BUN 7 L D (9-16) mg/dL Creatinine 0.55 (0.5-1.4) mg/dL Estim Creat Clear Calc 108.5 Estimated GFR > 60 Random Glucose 106 (60-115) mg/dL Lactic Acid (0.5-2.0) mmol/L Calcium 9.4 D (8.4-10.2) mg/dL Total Bilirubin 0.6 (0.0-1.0) mg/dL Direct Bilirubin 0.5 (0.0-0.5) mg/dL AST 53 H (5-31) U/L ALT 45 H (0-31) U/L Alkaline Phosphatase 383 H D (39-117) U/L Total Protein 5.8 L D (6.5-8.0) g/dL Albumin 3.0 L (3.5-5.0) g/dL Urine Color Urine Appearance Urine pH (5.0-8.0) Ur Specific [place] (1.005-1.025) Urine Protein (NEG-TRACE) MG/DL Urine Glucose (UA) (NEG) MG/DL Urine Ketones (NEG) MG/DL Urine Blood (NEG) Urine Nitrite (NEG) Ur Leukocyte Esterase (NEG) Urine Opiates Screen (Not Detect) Urine Fentanyl Screen (Not Detect) Ur Barbiturates Screen (Not Detect) Ur Phencyclidine Scrn (Not Detect) Ur Amphetamines Screen (Not Detect) U Benzodiazepines Scrn (Not Detect) Urine Cocaine Screen (Not Detect) U Marijuana (THC) Screen (Not Detect) COVID-19 (GAIL) (Negative) COVID-19 Clin Com 07/09/21 07/09/21 07/09/21 Range/Units 16:42 16:42 20:45 WBC (4.8-10.8) X10*3/uL RBC (4.20-5.50) X10*6/uL Hgb (12.0-16.0) g/dl Hct (37.0-47.0) % MCV (80.0-98.0) fL MCH (27.0-33.0) pg MCHC (31.0-35.0) g/dl RDW (11.0-16.0) % Plt Count (160-400) X10*3/uL MPV (9.4-12.3) fL Immature Gran % (Auto) (0.0-0.4) % Neut % (Auto) (45-73) % Lymph % (Auto) (20-40) % [place] % (Auto) (2-11) % Eos % (Auto) (0-4) % Baso % (Auto) (0-2) % Lymph # (Auto) (1.2-4.9) X10*3/uL [place] # (Auto) (0.1-1.2) X10*3/uL Eos # (Auto) (0.0-0.4) X10*3/uL Baso # (Auto) (0.0-0.2) X10*3/uL Abs Immat Gran (auto) (0.00-0.03) X10*3/uL Absolute Neuts (auto) (2.0-8.3) x10*3/uL Absolute Nucleated RBC (0.0-0.012) X10*3/uL Nucleated RBC % (auto) (0.0-0.2) /100WBC PT (9.9-13.0) SEC INR (0.9-1.1) Sodium (135-145) mmol/L Potassium (3.3-5.1) mmol/L Chloride (96-108) mmol/L Carbon Dioxide (22-29) mmol/L Anion Gap (12-20) BUN (9-16) mg/dL Creatinine (0.5-1.4) mg/dL Estim Creat Clear Calc Estimated GFR Random Glucose (60-115) mg/dL Lactic Acid 1.5 (0.5-2.0) mmol/L Calcium (8.4-10.2) mg/dL Total Bilirubin (0.0-1.0) mg/dL Direct Bilirubin (0.0-0.5) mg/dL AST (5-31) U/L ALT (0-31) U/L Alkaline Phosphatase (39-117) U/L Total Protein (6.5-8.0) g/dL Albumin (3.5-5.0) g/dL Urine Color YELLOW Urine Appearance CLEAR Urine pH 7.0 (5.0-8.0) Ur Specific [place] 1.010 (1.005-1.025) Urine Protein 1+ H (NEG-TRACE) MG/DL Urine Glucose (UA) NEG (NEG) MG/DL Urine Ketones NEG (NEG) MG/DL Urine Blood 1+ H (NEG) Urine Nitrite NEG (NEG) Ur Leukocyte Esterase NEG (NEG) Urine Opiates Screen (Not Detect) Urine Fentanyl Screen (Not Detect) Ur Barbiturates Screen (Not Detect) Ur Phencyclidine Scrn (Not Detect) Ur Amphetamines Screen (Not Detect) U Benzodiazepines Scrn (Not Detect) Urine Cocaine Screen (Not Detect) U Marijuana (THC) Screen (Not Detect) COVID-19 (GAIL) Negative (Negative) COVID-19 Clin Com See Note 07/09/21 Range/Units 20:45 WBC (4.8-10.8) X10*3/uL RBC (4.20-5.50) X10*6/uL Hgb (12.0-16.0) g/dl Hct (37.0-47.0) % MCV (80.0-98.0) fL MCH (27.0-33.0) pg MCHC (31.0-35.0) g/dl RDW (11.0-16.0) % Plt Count (160-400) X10*3/uL MPV (9.4-12.3) fL Immature Gran % (Auto) (0.0-0.4) % Neut % (Auto) (45-73) % Lymph % (Auto) (20-40) % [place] % (Auto) (2-11) % Eos % (Auto) (0-4) % Baso % (Auto) (0-2) % Lymph # (Auto) (1.2-4.9) X10*3/uL [place] # (Auto) (0.1-1.2) X10*3/uL Eos # (Auto) (0.0-0.4) X10*3/uL Baso # (Auto) (0.0-0.2) X10*3/uL Abs Immat Gran (auto) (0.00-0.03) X10*3/uL Absolute Neuts (auto) (2.0-8.3) x10*3/uL Absolute Nucleated RBC (0.0-0.012) X10*3/uL Nucleated RBC % (auto) (0.0-0.2) /100WBC PT (9.9-13.0) SEC INR (0.9-1.1) Sodium (135-145) mmol/L Potassium (3.3-5.1) mmol/L Chloride (96-108) mmol/L Carbon Dioxide (22-29) mmol/L Anion Gap (12-20) BUN (9-16) mg/dL Creatinine (0.5-1.4) mg/dL Estim Creat Clear Calc Estimated GFR Random Glucose (60-115) mg/dL Lactic Acid (0.5-2.0) mmol/L Calcium (8.4-10.2) mg/dL Total Bilirubin (0.0-1.0) mg/dL Direct Bilirubin (0.0-0.5) mg/dL AST (5-31) U/L ALT (0-31) U/L Alkaline Phosphatase (39-117) U/L Total Protein (6.5-8.0) g/dL Albumin (3.5-5.0) g/dL Urine Color Urine Appearance Urine pH (5.0-8.0) Ur Specific [place] (1.005-1.025) Urine Protein (NEG-TRACE) MG/DL Urine Glucose (UA) (NEG) MG/DL Urine Ketones (NEG) MG/DL Urine Blood (NEG) Urine Nitrite (NEG) Ur Leukocyte Esterase (NEG) Urine Opiates Screen Not Detected (Not Detect) Urine Fentanyl Screen Not Detected (Not Detect) Ur Barbiturates Screen Not Detected (Not Detect) Ur Phencyclidine Scrn Not Detected (Not Detect) Ur Amphetamines Screen Not Detected (Not Detect) U Benzodiazepines Scrn Not Detected (Not Detect) Urine Cocaine Screen Not Detected (Not Detect) U Marijuana (THC) Screen Not Detected (Not Detect) COVID-19 (GAIL) (Negative) COVID-19 Clin Com Discharge Plan Discharge Clinical Impression: Confusion Patient Disposition: Home, Self-Care Instructions: Acute Delirium (ED) Additional Instructions: Please follow-up with your primary care physician tomorrow. If you have any worsening or new symptoms, please return to the emergency room or call 911 Prescriptions: No Action albuterol sulfate [ProAir HFA] 90 mcg/actuation HFA aerosol inhaler 2 puff inhalation Q6H PRN (Reason: shortness of breath or wheezing) Qty: 17 RF: 5 fluticasone propionate 50 mcg/actuation spray,suspension 1 spray intranasal DAILY Qty: 16 RF: 4 hydroxyzine HCl 25 mg tablet 25 mg PO QD-BID PRN (Reason: for itch) RF: 0 fluoxetine [Prozac] 20 mg capsule 20 mg PO QPM RF: 0 carvedilol 12.5 mg tablet 3.125 mg PO BID 90 Days Qty: 60 RF: 0 losartan 25 mg tablet 25 mg PO DAILY 90 Days Qty: 180 RF: 0
[2021-07-09 17:04] LABS: Lactic Acid 1.5 mmol/L (0.5-2.0)
[2021-07-09 17:05] LABS: INTERNATIONAL NORM RATIO 1.1 (0.9-1.1); Prothrombin Time 12.8 SEC (9.9-13.0)
[2021-07-09 17:08] LABS: Alanine Aminotransferase 45 U/L (0-31); Alkaline Phosphatase 383 U/L (39-117); Anion Gap 14 (12-20); Aspartate Amino Transferase 53 U/L (5-31); Bilirubin Direct 0.5 mg/dL (0.0-0.5); Bilirubin Total 0.6 mg/dL (0.0-1.0); Blood Urea Nitrogen 7 mg/dL (9-16); Calcium 9.4 mg/dL (8.4-10.2); Carbon Dioxide 30 mmol/L (22-29); Chloride 94 mmol/L (96-108); Creatinine Clr Calc Pharmacy 108.5; Estimated Glomerular Filt Rate > 60; Glucose Random 106 mg/dL (60-115); Potassium 4.4 mmol/L (3.3-5.1); Sodium 134 mmol/L (135-145); Total Protein 5.8 g/dL (6.5-8.0)
[2021-07-09 17:09] LABS: COVID-19 Test Negative (Negative)
[2021-07-09 19:41] VITALS: BP 113/70; PULSE 120; RESP 24; O2SAT 93
[2021-07-09 20:59] LABS: Appearance Urine CLEAR; Color Urine YELLOW; Glucose Urine UA NEG (NEG); Leukocyte Esterase Urine NEG (NEG); Nitrite Urine NEG (NEG); UACC Culture Trigger NO; Urine Blood 1+ (NEG); Urine Ketones NEG (NEG); Urine Protein 1+ MG/DL (NEG-TRACE)
[2021-07-09 21:12] LABS: Amphetamine Screen Urine Not Detected (Not Detect); Barbiturates, Urine Not Detected (Not Detect); Benzodiazepines Screen Urine Not Detected (Not Detect); Cannabinoid Screen Urine Not Detected (Not Detect); Cocaine Screen Urine Not Detected (Not Detect); Fentanyl, urine Not Detected (Not Detect); Opiate Screen Urine Not Detected (Not Detect); Phencyclidine Screen Urine Not Detected (Not Detect)
--- NOTE | 2021-07-09 21:17 | PC.NURSE ---
pt was straight cath for urine sample. pt is not following simple commands. pt very confused. Sister called for update.
--- NOTE | 2021-07-09 22:01 | ECG_ITS ---
Test Reason : WEAKNESS Blood Pressure : / mmHG Vent. Rate : 111 BPM Atrial Rate : 000 BPM P-R Int : 000 ms QRS Dur : 088 ms QT Int : 488 ms P-R-T Axes : 000 -27 078 degrees QTc Int : 663 ms Poor data quality, interpretation may be adversely affected Sinus tachycardia with Premature atrial complexes Abnormal ECG When compared with ECG of 18-JUN-2021 10:21, Vent. rate has increased with Premature atrial complexes Vent. rate has increased BY 52 BPM Nonspecific T wave abnormality now evident in Lateral leads Referred By: Sarah De La Rosa Electronically Signed By:AMILCAR PEPE MD
[2021-07-09 22:18] LABS: Squamous Epithelial Cell Urine TRACE /LPF
[2021-07-09 22:19] LABS: Bacteria Urine TRACE /LPF
[2021-07-09 22:30] LABS: Lipase 32 U/L (8-78)
[2021-07-10] VITALS (8 sets, daily range): BP systolic 93–128; BP diastolic 50–65; PULSE 84–114; RESP 16–20; TEMP 36.6–38; O2SAT 78–98
[2021-07-10] MEDS: 0.9 % Sodium Chloride 500 ML 999 ML IV (00:02)
--- NOTE | 2021-07-10 00:05 | PC.NURSE ---
NS infusing as per emar. pt is constantly moving and restless. VS obtained.
[2021-07-10 00:53] LABS: B Type Natriuretic Peptide 356 pg/mL (<100)
--- NOTE | 2021-07-10 01:07 | PC.NURSE ---
PT CLEANED UP, CLEAN GOWN APPLIED, NS UP AND RUNNING W/O, SITE INTACT. PT REMAINS CONFUSED AND VERY RESTLESS. PT NOT ANSWERING QUESTIONS AND VERY FORGETFUL.
[2021-07-10] MEDS: LORazepam 2 MG/ML VIAL 0.5 MG IVPUSH (01:47)
--- NOTE | 2021-07-10 01:50 | PC.NURSE ---
PT MEDICATED WITH ATIVAN IVP PER EMAR. DR. HANNAH IS SPEAKING WITH ASHLEY (SISTER) ON PHONE REGARDING DISPO. NO CHG IN PT'S CONDITION.
[2021-07-10] MEDS: Furosemide 40 MG/4 ML VIAL IVPUSH (04:42)
--- NOTE | 2021-07-10 04:51 | PC.NURSE ---
pt urinated in stretcher. pt medicated with lasix, ivp. pt moved to hallway d/t no rooms available pt is not following instructions.
--- NOTE | 2021-07-10 05:06 | PC.NURSE ---
pt moved from room 22 to 22H, pt placed on zoll, strip put in chart.
--- NOTE | 2021-07-10 07:24 | PC.NURSE ---
per sara rn, pt not on O2 at baseline
--- NOTE | 2021-07-10 07:58 | ECG_ITS ---
Test Reason : tachycardia,hypoxia Blood Pressure : / mmHG Vent. Rate : 108 BPM Atrial Rate : 108 BPM P-R Int : 162 ms QRS Dur : 090 ms QT Int : 368 ms P-R-T Axes : 054 -33 061 degrees QTc Int : 493 ms Sinus tachycardia with occasional Premature ventricular complexes Left axis deviation Abnormal ECG When compared with ECG of 10-JUL-2021 00:12, Premature ventricular complexes are now Present Referred By: Sarah De La Rosa Electronically Signed By:AMILCAR PEPE MD
[2021-07-10] MEDS: cefEPime HCl 2 GM in 0.9 % Sodium Chloride 50 ML IV ×2 (08:15→16:16)
[2021-07-10] MEDS: Acetaminophen 325 MG TABLET 975 MG PO (08:15)
[2021-07-10] MEDS: 0.9 % Sodium Chloride 1,000 ML 999 ML IV (08:16)
[2021-07-10 08:44] LABS: MANUAL DIFF FLAG NO
[2021-07-10 08:45] LABS: Basophils Absolute Auto 0.1 X10*3/uL (0.0-0.2); Basophils Percent Auto 0.3 % (0-2); Hematocrit 30.3 % (37.0-47.0); Hemoglobin 9.7 g/dl (12.0-16.0); Imm Gran Abs Auto 0.69 X10*3/uL (0.00-0.03); Imm Gran Pct Auto 4.5 % (0.0-0.4); Lymphocytes Absolute Auto 0.8 X10*3/uL (1.2-4.9); Lymphocytes Percent Auto 5.3 % (20-40); Mean Corpuscular Hemoglobin 26.6 pg (27.0-33.0); Mean Platelet Volume 9.2 fL (9.4-12.3); Monocytes Absolute Auto 0.9 X10*3/uL (0.1-1.2); Monocytes Percent Auto 5.8 % (2-11); Neutrophils Absolute Auto 12.8 x10*3/uL (2.0-8.3); Neutrophils Percent Auto 84.1 % (45-73); Platelet Count 441 X10*3/uL (160-400); Red Blood Count 3.65 X10*6/uL (4.20-5.50); Red Cell Distribution Width 22.2 % (11.0-16.0); White Blood Count 15.3 X10*3/uL (4.8-10.8)
[2021-07-10 09:05] LABS: B Type Natriuretic Peptide 287 pg/mL (<100); Troponin-I High Sensitivity 11.5 ng/L (<3.5-17.0)
[2021-07-10 09:06] LABS: IDNOW Serial# 9DD0AD1C
[2021-07-10 09:07] LABS: COVID-19 Test Negative (Negative)
[2021-07-10 09:07] LABS: Alanine Aminotransferase 36 U/L (0-31); Albumin Level 2.9 g/dL (3.5-5.0); Alkaline Phosphatase 303 U/L (39-117); Anion Gap 15 (12-20); Aspartate Amino Transferase 40 U/L (5-31); Bilirubin Total 0.7 mg/dL (0.0-1.0); Blood Urea Nitrogen 9 mg/dL (9-16); Calcium 8.7 mg/dL (8.4-10.2); Carbon Dioxide 30 mmol/L (22-29); Chloride 95 mmol/L (96-108); Creatinine Clr Calc Pharmacy 108.5; Estimated Glomerular Filt Rate > 60; Glucose Random 105 mg/dL (60-115); Potassium 3.6 mmol/L (3.3-5.1); Sodium 136 mmol/L (135-145); Total Protein 5.6 g/dL (6.5-8.0)
[2021-07-10] MEDS: iohexoL 350 MG/ML 100 ML INFUS..BTL IV (10:18)
--- NOTE | 2021-07-10 10:24 | PC.NURSE ---
Phleb contacted for repeat labs.
[2021-07-10 11:10] LABS: Hematocrit 27.5 % (37.0-47.0); Hemoglobin 8.7 g/dl (12.0-16.0); Mean Corpuscular HGB Conc 31.6 g/dl (31.0-35.0); Mean Corpuscular Hemoglobin 26.3 pg (27.0-33.0); Mean Corpuscular Volume 83.1 fL (80.0-98.0); Mean Platelet Volume 9.4 fL (9.4-12.3); Platelet Count 423 X10*3/uL (160-400); Red Blood Count 3.31 X10*6/uL (4.20-5.50); Red Cell Distribution Width 22.3 % (11.0-16.0); White Blood Count 13.1 X10*3/uL (4.8-10.8)
[2021-07-10 11:20] LABS: Lactic Acid 1.2 mmol/L (0.5-2.0)
[2021-07-10 11:23] LABS: Anion Gap 11 (12-20); Blood Urea Nitrogen 10 mg/dL (9-16); Calcium 8.3 mg/dL (8.4-10.2); Carbon Dioxide 30 mmol/L (22-29); Chloride 97 mmol/L (96-108); Creatinine Clr Calc Pharmacy 112.6; Estimated Glomerular Filt Rate > 60; Glucose Random 118 mg/dL (60-115); Potassium 3.3 mmol/L (3.3-5.1); Sodium 135 mmol/L (135-145)
[2021-07-10 12:02] LABS: Band Neutrophils Percent 18 % (3-5); Lymphocytes Absolute Manual 0.1 X10*3/uL (1.2-4.9); Lymphocytes Percent Manual 1 % (20-40); Metamyelocytes Absolute 0.3 X10*3/uL; Metamyelocytes Percent 2 %; Monocytes Absolute Manual 0.4 X10*3/uL (0.1-1.2); Monocytes Percent Manual 3 % (2-11); Neutrophils Absolute Manual 12.3 X10*3/uL (2.0-8.3); Neutrophils Percent Manual 76 % (45-73)
[2021-07-10 12:03] LABS: Hypochromasia 1+ (5-14) /OIF; RBC Morphology NOTED
[2021-07-10 12:04] LABS: Ovalocytes 1+ (5-14) /OIF
[2021-07-10 12:06] LABS: Platelet Estimate INCREASED (NORMAL); Platelet Morphology Comment NORMAL; Polychromasia 1+ (0-2) /OIF
--- NOTE | 2021-07-10 12:34 | PHA.MEDREC ---
Pharmacy Consult ? Medication Reconciliation Pharmacy has completed the medication reconciliation. Med rec completed based on [facility]
[2021-07-10] MEDS: Lactated Ringers 1,000 ML 999 ML IV (14:08)
--- NOTE | 2021-07-10 14:18 | PM.IMHP ---
History of Present Illness Date of Service: 07/10/21 Attending physician on admission: Semaj Jacobson Chief Complaint: confusion this is a 60-year-old female who was sent to the emergency department due to episode altered mental status. She was sent [place] because she acting like herself. Initially she was not answering questions appropriately but now appears to be back to her baseline. she is unable to provide any history as to why she was sent to the emergency department. She was recently admitted to the ICU secondary to persistent hypotension secondary to anemia and poor oral intake requiring fluid resuscitation and 3 units RBCs. During that hospitalization she also underwent lymph node biopsy which shows recurrence of Hodgkin's lymphoma. She has not yet followed up with Oncology since her discharge. In the emergency department her brain CT was unremarkable. Her lab work showed no significant abnormalities. H/ H appear to be close to her baseline. While she is in the emergency department she spiked a low-grade fever of 100.4. She reports receiving her flu shot two days ago and states that she frequently gets a fever after her flu shot. Urinalysis was unremarkable, chest x-ray showed no evidence of pneumonia. She underwent chest CT as well as CTA which showed persistent lymphadenopathy but no new changes. She received empiric cefepime. She was also noted to have a documented hypoxia however during my evaluation her oxygen was turned off and her oxygen saturation remained in the high 90s. vaccination status- patient has received Moderna x2. She has not yet received her booster shot Review of Systems Review of Systems: Yes all other systems are reviewed and are negative Constitutional: Constitutional: Denies chills and Denies fever(s) Cardiovascular: Cardiovascular: Denies chest pain Respiratory: Respiratory: Denies cough Gastrointestinal: Gastrointestinal: Denies abdominal pain [facility] Medical History Acute dehydration Acute hypokalemia Acute hypotension Anemia CHF (congestive heart failure) Colon cancer Depression DM type 2 (diabetes mellitus, type 2) Hodgkin disease Hodgkin lymphoma Hyperlipidemia Hypoalbuminemia due to protein-calorie malnutrition Lymphoma Neuropathy Nonischemic congestive cardiomyopathy Rotator cuff arthropathy of left shoulder Shoulder pain Sinusitis, acute Weight loss, abnormal Family History Mother Small cell lung cancer Father Myocardial infarction Son No problems noted. Surgical History History of ankle surgery History of femur fracture History of lumbar fusion Social History Household Members: Other Household Members Other:: ALONE Housing: Apartment Do you presently have visiting nurse or other home services: Yes ([employer] 10.5 HRS/WEEK) Alcohol intake: never Patient Tobacco Use Status: Former Tobacco user Tobacco use type: Cigarette Second Hand Smoke Exposure: No Use of substances other than those prescribed or required for medical reasons: No Advance Directives: No Advance Directives Information Provided: Yes service: No Current occupational status: disabled Meds Allergies Allergy/AdvReac Type Severity Reaction Status Date / Time valsartan [Entresto] Allergy Unknown fatigue, Verified 11/06/20 12:36 myalgia Active Medications: Current Medications Acetaminophen (Acetaminophen 325 Mg Tablet) 650 mg PO Q6H PRN PRN Reason: Pain, Mild (Pain Scale 1-3) Albuterol Sulfate (Albuterol Sulfate 90 Mcg 8 Gm Inhaler) 2 puff INHALE Q6H PRN PRN Reason: shortness of breath or wheezing Bisacodyl (Bisacodyl 10 Mg Supp.Rect) 10 mg MO DAILY PRN PRN Reason: Constipation Docusate Sodium (Docusate Sodium 100 Mg Capsule) 100 mg PO DAILY PRN PRN Reason: Constipation Fluoxetine HCl (Fluoxetine Hcl 20 Mg Capsule) 20 mg PO QPM PENDING SALE TO [facility] Fluticasone Propionate (Fluticasone Propionate Nasal 16 Gm [place]) 1 spray NOSTRIL-B DAILY PENDING SALE TO [facility] Hydroxyzine HCl (Hydroxyzine Hcl 25 Mg Tablet) 25 mg PO BID PRN PRN Reason: Itching Lactated Ringer's (Lr) 1,000 mls @ 999 mls/hr IV .Q1H1M AMPARO Stop: 07/10/21 15:15 Last Admin: 07/10/21 14:08 Dose: 999 mls/hr Documented by: Cefepime HCl 2 gm/ Sodium (Chloride) 50 mls @ 100 mls/hr IV Q8H AMPARO Loratadine (Loratadine 10 Mg Tablet) 10 mg PO DAILY AMPARO Ondansetron HCl (Ondansetron Hcl 4 Mg/2 Ml Vial) 4 mg IVPUSH Q8H PRN PRN Reason: Nausea and Vomiting Pharmacy Consult (Consult Rx Perform Med Rec) 1 each MISCELLANE ONCE PRN PRN Reason: Consult order Sodium Chloride (0.9 % Sodium Chloride Flush 3 Ml Syringe) [facility]ations Medication Instructions Recorded Confirmed Last Taken Type fluoxetine 20 mg capsule (Prozac) 20 mg PO QPM 06/18/21 07/10/21 06/17/21 History acetaminophen 325 mg tablet 650 mg PO Q6H PRN 07/10/21 07/10/21 Unknown History bisacodyl 10 mg rectal suppository 10 mg MO DAILY PRN 07/10/21 07/10/21 Unknown History carvedilol 3.125 mg tablet 3.125 mg PO BID 07/10/21 07/10/21 Unknown History cetirizine 10 mg tablet (Zyrtec) 10 mg PO DAILY 07/10/21 07/10/21 Unknown History glucose 15 g PO Q15M PRN 07/10/21 07/10/21 Unknown History hydroxyzine HCl 25 mg tablet 25 mg PO BID PRN 07/10/21 07/10/21 Unknown History loperamide 2 mg tablet 2 mg PO Q4H PRN 07/10/21 07/10/21 Unknown History magnesium hydroxide 400 mg/5 mL 1,200 mg PO DAILY PRN 07/10/21 07/10/21 Unknown History oral suspension (Milk of Magnesia) Physical Exam Vital Signs and Narrative: Vital Signs: Last Vital Signs Temp 99.9 F 07/10/21 10:00 Pulse 84 07/10/21 10:00 Resp 16 07/10/21 10:00 BP 107/63 07/10/21 07:50 Pulse Ox 78 L 07/10/21 12:00 Oxygen Flow Rate 2 07/09/21 15:30 BMI result Body Mass Index 35.0 Const: General: cooperative, comfortable, no acute distress, alert and awake Nutritional Appearance: well nourished Orientation/consciousness: patient oriented x3 HENMT: Head: Yes normocephalic and Yes atraumatic Eyes: Sclerae: sclerae normal Pupils: Equal, round and reactive pupils present Resp: Effort & Inspection: normal respiratory effort, able to speak in complete sentences and no respiratory distress Auscultation: clear to auscultation bilaterally Cardio: Rate: regular rate Rhythm: regular rhythm GI: Palpation (GI): Soft to palpation and nontender Neuro: General: patient oriented x3 Cranial nerves: Yes CN's II-XII intact bilaterally, Yes Equal, round and reactive pupils present and Yes Bilaterally intact EOM present Extrem: General: Yes no pedal edema Results Labs CBC and Chem 7: 07/10/21 10:52 07/10/21 10:52 Labs: Laboratory Results - last 24 hr 07/09/21 07/09/21 07/09/21 16:42 16:42 16:42 MCV 83.3 MCH 26.7 L MCHC 32.1 RDW 22.4 H Plt Count 516 H D MPV 9.5 Immature Gran % (Auto) 5.0 H Neut % (Auto) 84.9 H Lymph % (Auto) 5.5 L [place] % (Auto) 4.2 Eos % (Auto) 0.0 Baso % (Auto) 0.4 Lymph # (Auto) 0.8 L [place] # (Auto) 0.6 Eos # (Auto) 0.0 Baso # (Auto) 0.1 Abs Immat Gran (auto) 0.69 H Absolute Neuts (auto) 11.7 H Absolute Nucleated RBC 0.000 Nucleated RBC % (auto) 0.0 Neutrophils % (Manual) Band Neutrophils % Lymphocytes % (Manual) Monocytes % (Manual) Metamyelocytes % Abs Neuts (Manual) Lymphocytes # (Manual) Monocytes # (Manual) Metamyelocytes # Platelet Estimate Plt Morphology Comment RBC Morphology Polychromasia Hypochromasia Ovalocytes PT 12.8 INR 1.1 Anion Gap 14 Estim Creat Clear Calc 108.5 Estimated GFR > 60 Random Glucose 106 Lactic Acid Calcium 9.4 D Total Bilirubin 0.6 Direct Bilirubin 0.5 AST 53 H ALT 45 H Alkaline Phosphatase 383 H D Troponin I High Sens B-Natriuretic Peptide Total Protein 5.8 L D Albumin 3.0 L Lipase 32 Urine Color Urine Appearance Urine pH Ur Specific [place] Urine Protein Urine Glucose (UA) Urine Ketones Urine Blood Urine Nitrite Ur Leukocyte Esterase Urine RBC Urine WBC Ur Squamous Epith Cells Urine Bacteria Urine Opiates Screen Urine Fentanyl Screen Ur Barbiturates Screen Ur Phencyclidine Scrn Ur Amphetamines Screen U Benzodiazepines Scrn Urine Cocaine Screen U Marijuana (THC) Screen COVID-19 (GAIL) COVID-19 Clin Com 01/12/2307/09/21 07/09/21 16:42 16:42 20:45 MCV MCH MCHC RDW Plt Count MPV Immature Gran % (Auto) Neut % (Auto) Lymph % (Auto) Sutton % (Auto) Eos % (Auto) Baso % (Auto) Lymph # (Auto) Sutton # (Auto) Eos # (Auto) Baso # (Auto) Abs Immat Gran (auto) Absolute Neuts (auto) Absolute Nucleated RBC Nucleated RBC % (auto) Neutrophils % (Manual) Band Neutrophils % Lymphocytes % (Manual) Monocytes % (Manual) Metamyelocytes % Abs Neuts (Manual) Lymphocytes # (Manual) Monocytes # (Manual) Metamyelocytes # Platelet Estimate Plt Morphology Comment RBC Morphology Polychromasia Hypochromasia Ovalocytes PT INR Anion Gap Estim Creat Clear Calc Estimated GFR Random Glucose Lactic Acid 1.5 Calcium Total Bilirubin Direct Bilirubin AST ALT Alkaline Phosphatase Troponin I High Sens B-Natriuretic Peptide Total Protein Albumin Lipase Urine Color YELLOW Urine Appearance CLEAR Urine pH 7.0 Ur Specific [place] 1.010 Urine Protein 1+ H Urine Glucose (UA) NEG Urine Ketones NEG Urine Blood 1+ H Urine Nitrite NEG Ur Leukocyte Esterase NEG Urine RBC 5-9 H Urine WBC 1-4 Ur Squamous Epith Cells TRACE Urine Bacteria TRACE Urine Opiates Screen Urine Fentanyl Screen Ur Barbiturates Screen Ur Phencyclidine Scrn Ur Amphetamines Screen U Benzodiazepines Scrn Urine Cocaine Screen U Marijuana (THC) Screen COVID-19 (GAIL) Negative COVID-19 Clin Com See Note 07/09/21 07/10/21 07/10/21 20:45 00:28 08:38 MCV MCH MCHC RDW Plt Count MPV Immature Gran % (Auto) Neut % (Auto) Lymph % (Auto) [place] % (Auto) Eos % (Auto) Baso % (Auto) Lymph # (Auto) [place] # (Auto) Eos # (Auto) Baso # (Auto) Abs Immat Gran (auto) Absolute Neuts (auto) Absolute Nucleated RBC Nucleated RBC % (auto) Neutrophils % (Manual) Band Neutrophils % Lymphocytes % (Manual) Monocytes % (Manual) Metamyelocytes % Abs Neuts (Manual) Lymphocytes # (Manual) Monocytes # (Manual) Metamyelocytes # Platelet Estimate Plt Morphology Comment RBC Morphology Polychromasia Hypochromasia Ovalocytes PT INR Anion Gap Estim Creat Clear Calc Estimated GFR Random Glucose Lactic Acid Calcium Total Bilirubin Direct Bilirubin AST ALT Alkaline Phosphatase Troponin I High Sens 11.5 D B-Natriuretic Peptide 356 H 287 H Total Protein Albumin Lipase Urine Color Urine Appearance Urine pH Ur Specific [place] Urine Protein Urine Glucose (UA) Urine Ketones Urine Blood Urine Nitrite Ur Leukocyte Esterase Urine RBC Urine WBC Ur Squamous Epith Cells Urine Bacteria Urine Opiates Screen Not Detected Urine Fentanyl Screen Not Detected Ur Barbiturates Screen Not Detected Ur Phencyclidine Scrn Not Detected Ur Amphetamines Screen Not Detected U Benzodiazepines Scrn Not Detected Urine Cocaine Screen Not Detected U Marijuana (THC) Screen Not Detected COVID-19 (GAIL) COVID-19 Clin [facility] 07/10/21 07/10/21 07/10/21 08:39 08:39 08:45 MCV 83.0 MCH 26.6 L MCHC 32.0 RDW 22.2 H Plt Count 441 H MPV 9.2 L Immature Gran % (Auto) 4.5 H Neut % (Auto) 84.1 H Lymph % (Auto) 5.3 L [place] % (Auto) 5.8 Eos % (Auto) 0.0 Baso % (Auto) 0.3 Lymph # (Auto) 0.8 L [place] # (Auto) 0.9 Eos # (Auto) 0.0 Baso # (Auto) 0.1 Abs Immat Gran (auto) 0.69 H Absolute Neuts (auto) 12.8 H Absolute Nucleated RBC 0.000 Nucleated RBC % (auto) 0.0 Neutrophils % (Manual) Band Neutrophils % Lymphocytes % (Manual) Monocytes % (Manual) Metamyelocytes % Abs Neuts (Manual) Lymphocytes # (Manual) Monocytes # (Manual) Metamyelocytes # Platelet Estimate Plt Morphology Comment RBC Morphology Polychromasia Hypochromasia Ovalocytes PT INR Anion Gap 15 Estim Creat Clear Calc 108.5 Estimated GFR > 60 Random Glucose 105 Lactic Acid Calcium 8.7 D Total Bilirubin 0.7 Direct Bilirubin AST 40 H ALT 36 H Alkaline Phosphatase 303 H D Troponin I High Sens B-Natriuretic Peptide Total Protein 5.6 L Albumin 2.9 L Lipase Urine Color Urine Appearance Urine pH Ur Specific [place] Urine Protein Urine Glucose (UA) Urine Ketones Urine Blood Urine Nitrite Ur Leukocyte Esterase Urine RBC Urine WBC Ur Squamous Epith Cells Urine Bacteria Urine Opiates Screen Urine Fentanyl Screen Ur Barbiturates Screen Ur Phencyclidine Scrn Ur Amphetamines Screen U Benzodiazepines Scrn Urine Cocaine Screen U Marijuana (THC) Screen COVID-19 (GAIL) Negative COVID-19 Clin Com See Note 07/10/21 07/10/21 07/10/21 10:52 10:52 10:52 MCV 83.1 MCH 26.3 L MCHC 31.6 RDW 22.3 H Plt Count 423 H MPV 9.4 Immature Gran % (Auto) Cancelled Neut % (Auto) Cancelled Lymph % (Auto) Cancelled Sutton % (Auto) Cancelled Eos % (Auto) Cancelled Baso % (Auto) Cancelled Lymph # (Auto) Cancelled [place] # (Auto) Cancelled Eos # (Auto) Cancelled Baso # (Auto) Cancelled Abs Immat Gran (auto) Cancelled Absolute Neuts (auto) Cancelled Absolute Nucleated RBC 0.000 Nucleated RBC % (auto) 0.0 Neutrophils % (Manual) 76 H Band Neutrophils % 18 H Lymphocytes % (Manual) 1 L Monocytes % (Manual) 3 Metamyelocytes % 2 Abs Neuts (Manual) 12.3 H Lymphocytes # (Manual) 0.1 L Monocytes # (Manual) 0.4 Metamyelocytes # 0.3 Platelet Estimate INCREASED Plt Morphology Comment NORMAL RBC Morphology NOTED Polychromasia 1+ (0-2) Hypochromasia 1+ (5-14) Ovalocytes 1+ (5-14) PT INR Anion Gap 11 L Estim Creat Clear Calc 112.6 Estimated GFR > 60 Random Glucose 118 H Lactic Acid 1.2 Calcium 8.3 L Total Bilirubin Direct Bilirubin AST ALT Alkaline Phosphatase Troponin I High Sens B-Natriuretic Peptide Total Protein Albumin Lipase Urine Color Urine Appearance Urine pH Ur Specific [place] Urine Protein Urine Glucose (UA) Urine Ketones Urine Blood Urine Nitrite Ur Leukocyte Esterase Urine RBC Urine WBC Ur Squamous Epith Cells Urine Bacteria Urine Opiates Screen Urine Fentanyl Screen Ur Barbiturates Screen Ur Phencyclidine Scrn Ur Amphetamines Screen U Benzodiazepines Scrn Urine Cocaine Screen U Marijuana (THC) Screen COVID-19 (GAIL) COVID-19 Clin Com Imaging Radiologist's Impressions: Impressions Head CT 07/09/21 17:41 IMPRESSION: No acute intracranial pathology. Chest X-Ray 07/09/21 22:26 IMPRESSION: No acute cardiopulmonary process. Abdomen Ultrasound 07/09/21 22:54 IMPRESSION: 1. Diffuse fatty change of liver. 2. Cholelithiasis. No acute change of gallbladder wall. No bile duct dilatation. Chest CT 07/10/21 07:15 IMPRESSION: * No evidence of pulmonary edema or pleural effusion. * The mediastinal and hilar lymphadenopathy remain similar in appearance compared to 06/18/2021. The patient has history of lymphoma. * A 0.5 x 1 cm irregular nodule of the lateral left upper lobe is new compared to 06/18/2021. This is an indeterminate finding. It is uncertain whether this is related to patient's lymphoma. It might represent focal peribronchial inflammatory change or perhaps an infectious nodule, but suspicion for infection is low given lack of any other new pulmonary abnormalities. Follow-up imaging decisions should be based on patient's clinical course. Consider noncontrast chest CT follow-up in 3 months to determine whether this resolves. Chest CTA 07/10/21 10:16 IMPRESSION: Limited exam due to artifact from respiratory motion. No evidence of large or central pulmonary embolism. Smaller subsegmental pulmonary arteries not well evaluated. Stable left upper lobe nodule and enlarged mediastinal and right hilar lymph nodes. VTE: negative Assessment and Plan (1) Fever: Qualifiers: Fever type: unspecified Qualified Code(s): R50.9 - Fever, unspecified Status: Acute This is a 60-year-old female with history of Hodgkin's lymphoma, diabetes hyperlipidemia neuropathy among others who was initially sent to the hospital due to altered mental status found to have low-grade fever episode of encephalopathy Unclear etiololgy Seems to have resolved at this time, Patient appears to be back at her baseline No evidence of infection. No focal neurological deficits. Brain CT negative. hypoxia Documented to have hypoxia while in the emergency department No respiratory symptoms Chest CT showed no new findings, chronic lymphadenopathy. CTA negative for PE was treated with dose of lasix in ED seems to have resolved.Not currently requiring supplemental oxygen at this time Fever Unclear etiology at this time. Possibly secondary to recent flu shot. Possibly due to underlying recurrence of Hodgkin's lymphoma UA negative, chest imaging shows no evidence of pneumonia. covid negative Will treat empirically with cefepime and await blood culture results HTN Blood pressure borderline Will hold losartan, carvedilol will give 1 L of fluid and monitor blood pressure closely DM. ADA diet, SSI, pocs mood Continue Prozac history of cardiomyopathy Previous notes indicate EF of 45% does not appear to be fluid overloaded at this time not on diuretics at baseline received a dose of lasix in ED follow fluid status closey hold coreg, losartan DVT prophylaxis-mechanical devices Code status -Full cold attending-Dr. Jacobson Quality Stroke Does the patient have a stroke diagnosis?: No VTE Prior VTE?: No VTE Risk Level:: Medical - moderate - high VTE Device Contraindication: N/A - Device Ordered VTE Drug Contraindication: N/A - Med Ordered
[2021-07-10 18:16] LABS: Glucose, Whole Blood 91 mg/dL (60-115)
[2021-07-10 21:42] LABS: Glucose, Whole Blood 111 mg/dL (60-115)
[2021-07-11] MEDS: FLUoxetine HCl 20 MG CAPSULE PO ×2 (01:35→20:57)
[2021-07-11] MEDS: cefEPime HCl 2 GM in 0.9 % Sodium Chloride 50 ML IV ×3 (01:47→16:43)
[2021-07-11] MEDS: 0.9 % Sodium Chloride Flush 3 ML SYRINGE IVFLUSH ×2 (01:48→16:42)
[2021-07-11 03:45] VITALS: BP 122/61; PULSE 96; RESP 16; TEMP 36.6; O2SAT 99
[2021-07-11 07:37] LABS: Hematocrit 26.5 % (37.0-47.0); Hemoglobin 8.3 g/dl (12.0-16.0); Mean Corpuscular HGB Conc 31.3 g/dl (31.0-35.0); Mean Corpuscular Volume 83.1 fL (80.0-98.0); Mean Platelet Volume 9.3 fL (9.4-12.3); Platelet Count 431 X10*3/uL (160-400); Red Blood Count 3.19 X10*6/uL (4.20-5.50); Red Cell Distribution Width 22.2 % (11.0-16.0); White Blood Count 12.9 X10*3/uL (4.8-10.8)
[2021-07-11 07:46] LABS: Glucose, Whole Blood 84 mg/dL (60-115)
[2021-07-11 08:04] LABS: Anion Gap 11 (12-20); Blood Urea Nitrogen 9 mg/dL (9-16); Calcium 8.1 mg/dL (8.4-10.2); Carbon Dioxide 28 mmol/L (22-29); Chloride 97 mmol/L (96-108); Creatinine Clr Calc Pharmacy 129.8; Estimated Glomerular Filt Rate > 60; Glucose Random 80 mg/dL (60-115); Potassium 3.6 mmol/L (3.3-5.1); Sodium 132 mmol/L (135-145)
[2021-07-11 08:21] LABS: Band Neutrophils Percent 16 % (3-5); Lymphocytes Absolute Manual 0.4 X10*3/uL (1.2-4.9); Lymphocytes Percent Manual 3 % (20-40); Metamyelocytes Absolute 0.1 X10*3/uL; Metamyelocytes Percent 1 %; Monocytes Absolute Manual 0.6 X10*3/uL (0.1-1.2); Monocytes Percent Manual 5 % (2-11); Neutrophils Absolute Manual 11.7 X10*3/uL (2.0-8.3); Neutrophils Percent Manual 75 % (45-73)
[2021-07-11 08:23] LABS: RBC Morphology NOTED; Toxic Vacuolation PRESENT
[2021-07-11 08:24] LABS: Basophilic Stippling 1+ (0-2) /OIF; Hypochromasia 1+ (5-14) /OIF; Polychromasia 1+ (0-2) /OIF
[2021-07-11 08:25] LABS: Platelet Estimate SLIGHTLY INCREASED (NORMAL); Platelet Morphology Comment NORMAL
[2021-07-11] MEDS: Loratadine 10 MG TABLET PO (08:52)
[2021-07-11] MEDS: Acetaminophen 325 MG TABLET 650 MG PO (11:42)
[2021-07-11] MEDS: hydrOXYzine HCL 25 MG TABLET PO ×2 (11:43→20:56)
[2021-07-11 11:47] LABS: Glucose, Whole Blood 85 mg/dL (60-115)
--- NOTE | 2021-07-11 11:49 | P.PNIM_ITS ---
Subjective Subjective Date of Service: 07/11/21 Physical Exam Verdana 4l Vital Signs: Verdana 4d Verdana 4d Vital Signs: Verdana 4d Verdana 4Bd Last Vital Signs Verdana 4d Compensation Vice President New 4d Sid Méndez 4d Temp 97.9 F 07/11/21 03:45 Compensation Vice President New 4d Pulse 96 07/11/21 03:45 Sid NewNew 4d Resp 16 07/11/21 03:45 BP 122/61 07/11/21 03:45 Pulse Ox 99 07/11/21 03:45 Oxygen Flow Rate 2 07/09/21 15:30 BMI result Body Mass Index 35.0 Objective Data Active Medications Acetaminophen (Acetaminophen 325 Mg Tablet) 650 mg PO Q6H PRN PRN Reason: Pain, Mild (Pain Scale 1-3) Last Admin: 07/11/21 11:42 Dose: 650 mg Documented by: GASPER Albuterol Sulfate (Albuterol Sulfate 90 Mcg 8 Gm Inhaler) 2 puff INHALE Q6H PRN PRN Reason: shortness of breath or wheezing Bisacodyl (Bisacodyl 10 Mg Supp.Rect) 10 mg [place] DAILY PRN PRN Reason: Constipation Dextrose (Dextrose 50 % 25 Gm/50 Ml Vial) 25 gm IVPUSH Q15M PRN; Protocol PRN Reason: per Hypoglycemia Standing Ord. Docusate Sodium (Docusate Sodium 100 Mg Capsule) 100 mg PO DAILY PRN PRN Reason: Constipation Fluoxetine HCl (Fluoxetine Hcl 20 Mg Capsule) 20 mg PO BEDTIME [facility] Last Admin: 07/11/21 01:35 Dose: 20 mg Documented by: RUDDY Fluticasone Propionate (Fluticasone Propionate Nasal 16 Gm [place]) 1 spray NOSTRIL-B DAILY [facility] Last Admin: 07/11/21 09:01 Dose: Not Given Documented by: GASPER Non-Admin Reason: Patient Refused Glucose (Glucose Gel 15 Gm Gel..Gram.) 15 gm PO Q15M PRN; Protocol PRN Reason: per Hypoglycemia Standing Ord. Hydroxyzine HCl (Hydroxyzine Hcl 25 Mg Tablet) 25 mg PO BID PRN PRN Reason: Itching Last Admin: 07/11/21 11:43 Dose: 25 mg Documented by: GASPER Cefepime HCl 2 gm/ Sodium (Chloride) 50 mls @ 100 mls/hr IV Q8H [facility] Last Infusion: 07/11/21 09:28 Dose: 0 mls/hr Documented by: GASPER Insulin Human Lispro (Insulin Lispro 100 Unit/Ml 3 Ml Vial) 0 unit SUBCUT QIDACHS [facility]; Protocol Last Admin: 07/11/21 11:47 Dose: Not Given Documented by: GASPER Non-Admin Reason: normal bgl Loratadine (Loratadine 10 Mg Tablet) 10 mg PO DAILY [facility] Last Admin: 07/11/21 08:52 Dose: 10 mg Documented by: GASPER Ondansetron HCl (Ondansetron Hcl 4 Mg/2 Ml Vial) 4 mg IVPUSH Q8H PRN PRN Reason: Nausea and Vomiting Pharmacy Consult (Consult Rx Perform Med Rec) 1 each MISCELLANE ONCE PRN PRN Reason: Consult order Sodium Chloride (0.9 % Sodium Chloride Flush 3 Ml Syringe) 3 ml IVFLUSH QSHIFT [facility] Last Admin: 07/11/21 09:02 Dose: Not Given Documented by: GASPER Non-Admin Reason: IV Running Labs CBC & Chem 7: 07/11/21 07:12 07/11/21 07:12 Labs: Laboratory Results - last 24 hr 07/10/21 07/10/21 07/10/21 10:52 18:02 21:38 MCV MCH MCHC RDW Plt Count MPV Immature Gran % (Auto) Neut % (Auto) Lymph % (Auto) [place] % (Auto) Eos % (Auto) Baso % (Auto) Lymph # (Auto) [place] # (Auto) Eos # (Auto) Baso # (Auto) Abs Immat Gran (auto) Absolute Neuts (auto) Absolute Nucleated RBC Nucleated RBC % (auto) Neutrophils % (Manual) 76 H Band Neutrophils % 18 H Lymphocytes % (Manual) 1 L Monocytes % (Manual) 3 Metamyelocytes % 2 Abs Neuts (Manual) 12.3 H Lymphocytes # (Manual) 0.1 L Monocytes # (Manual) 0.4 Metamyelocytes # 0.3 Toxic Vacuolation Platelet Estimate INCREASED Plt Morphology Comment NORMAL RBC Morphology NOTED Polychromasia 1+ (0-2) Hypochromasia 1+ (5-14) Basophilic Stippling Ovalocytes 1+ (5-14) Anion Gap Estim Creat Clear Calc Estimated GFR POC Glucose 91 111 Random Glucose Calcium 07/11/21 07/11/21 07/11/21 07:12 07:12 07:40 MCV 83.1 MCH 26.0 L MCHC 31.3 RDW 22.2 H Plt Count 431 H MPV 9.3 L Immature Gran % (Auto) Cancelled Neut % (Auto) Cancelled Lymph % (Auto) Cancelled [place] % (Auto) Cancelled Eos % (Auto) Cancelled Baso % (Auto) Cancelled Lymph # (Auto) Cancelled [place] # (Auto) Cancelled Eos # (Auto) Cancelled Baso # (Auto) Cancelled Abs Immat Gran (auto) Cancelled Absolute Neuts (auto) Cancelled Absolute Nucleated RBC 0.000 Nucleated RBC % (auto) 0.0 Neutrophils % (Manual) 75 H Band Neutrophils % 16 H Lymphocytes % (Manual) 3 L Monocytes % (Manual) 5 Metamyelocytes % 1 Abs Neuts (Manual) 11.7 H Lymphocytes # (Manual) 0.4 L Monocytes # (Manual) 0.6 Metamyelocytes # 0.1 Toxic Vacuolation PRESENT Platelet Estimate SLIGHTLY INCREASED Plt Morphology Comment NORMAL RBC Morphology NOTED Polychromasia 1+ (0-2) Hypochromasia 1+ (5-14) Basophilic Stippling 1+ (0-2) Ovalocytes Anion Gap 11 L Estim Creat Clear Calc 129.8 Estimated GFR > 60 POC Glucose 84 Random Glucose 80 Calcium 8.1 L 07/11/21 11:43 MCV MCH MCHC RDW Plt Count MPV Immature Gran % (Auto) Neut % (Auto) Lymph % (Auto) [place] % (Auto) Eos % (Auto) Baso % (Auto) Lymph # (Auto) [place] # (Auto) Eos # (Auto) Baso # (Auto) Abs Immat Gran (auto) Absolute Neuts (auto) Absolute Nucleated RBC Nucleated RBC % (auto) Neutrophils % (Manual) Band Neutrophils % Lymphocytes % (Manual) Monocytes % (Manual) Metamyelocytes % Abs Neuts (Manual) Lymphocytes # (Manual) Monocytes # (Manual) Metamyelocytes # Toxic Vacuolation Platelet Estimate Plt Morphology Comment RBC Morphology Polychromasia Hypochromasia Basophilic Stippling Ovalocytes Anion Gap Estim Creat Clear Calc Estimated GFR POC Glucose 85 Random Glucose Calcium Microbiology Microbiology Results: Microbiology 07/09/21 20:45 Blood Culture - Preliminary Blood - Venous Prelim: GPC Gram Stain only 07/09/21 16:42 Blood Culture - Preliminary Blood - Venous No growth after 24 hours. Assessment and Plan (1) Hodgkin lymphoma: Status: Acute (2) Toxic encephalopathy: Status: Acute Assessment and Plan: This is a 60-year-old female with history of Hodgkin's lymphoma,? diabetes hyperlipidemia neuropathy among others who? was initially sent to the hospital due to altered mental status found to have low-grade fever Toxic encephalopathy Unclear etiololgy Seems to have resolved at this time, ? Patient appears to be back at her baseline Blood cx show GPC 1/2 Hypoxia Documented to have hypoxia while in the emergency department No respiratory symptoms Chest CT showed no new findings, chronic lymphadenopathy.? CTA negative for PE was treated with dose of lasix in ED seems to have resolved. Not currently requiring supplemental oxygen at this time Fever Unclear etiology at this time. ? Blood cx GPC 1/2 Possibly secondary to recent flu shot or underlying recurrence of Hodgkin's lymphoma UA negative, chest imaging shows no evidence of pneumonia. covid negative Will treat empirically with cefepime and await final blood culture results Normocytic anemia No signs bleeding Follow CBC Hyponatremia Mild follow BMP HTN Blood pressure borderline Will hold losartan, carvedilol DM. ADA diet, SSI, pocs mood Continue Prozac History of cardiomyopathy Previous notes indicate EF of 45% does not appear to be fluid overloaded at this time hold coreg, losartan due to hypotension DVT prophylaxis-mechanical devices Code status -Full code attending-Dr. Rick Quality Stroke Does the patient have a stroke diagnosis?: No VTE Prior VTE?: No VTE Risk Level:: Medical - moderate - high VTE Device Contraindication: N/A - Device Ordered VTE Drug Contraindication: N/A - Med Ordered
[2021-07-11 15:37] VITALS: BP 99/60; PULSE 82; RESP 16; TEMP 36.2; O2SAT 96
[2021-07-11 16:48] LABS: Glucose, Whole Blood 75 mg/dL (60-115)
--- NOTE | 2021-07-11 19:42 | PC.NURSE ---
Assumed care of pt at 1900. Pt sleeping and in NAD. Respirations equal and non-labored. Call light within reach
[2021-07-11 20:32] LABS: Glucose, Whole Blood 100 mg/dL (60-115)
[2021-07-11 23:30] VITALS: RESP 14
[2021-07-12] MEDS: cefEPime HCl 2 GM in 0.9 % Sodium Chloride 50 ML IV ×3 (00:04→16:17)
[2021-07-12] MEDS: Albuterol Sulfate 90 MCG 8 GM INHALER 2 PUFF INHALE (04:28)
[2021-07-12 05:56] VITALS: BP 115/62; PULSE 111; RESP 18; O2SAT 96
[2021-07-12 07:31] LABS: Glucose, Whole Blood 80 mg/dL (60-115)
[2021-07-12 08:12] LABS: Hematocrit 27.7 % (37.0-47.0); Hemoglobin 8.8 g/dl (12.0-16.0); Mean Corpuscular HGB Conc 31.8 g/dl (31.0-35.0); Mean Corpuscular Hemoglobin 26.1 pg (27.0-33.0); Mean Corpuscular Volume 82.2 fL (80.0-98.0); Mean Platelet Volume 9.4 fL (9.4-12.3); Platelet Count 430 X10*3/uL (160-400); Red Blood Count 3.37 X10*6/uL (4.20-5.50); Red Cell Distribution Width 21.6 % (11.0-16.0); White Blood Count 13.8 X10*3/uL (4.8-10.8)
--- NOTE | 2021-07-12 08:31 | PC.NURSE ---
pt is a/o x 3, no sob/brandon noted. speaks in full sentences.
[2021-07-12 08:32] VITALS: BP 108/57; PULSE 104; RESP 16; TEMP 36.8; O2SAT 97
[2021-07-12 08:37] LABS: Anion Gap 10 (12-20); Blood Urea Nitrogen 7 mg/dL (9-16); Calcium 8.3 mg/dL (8.4-10.2); Carbon Dioxide 28 mmol/L (22-29); Chloride 96 mmol/L (96-108); Creatinine Clr Calc Pharmacy 138.9; Estimated Glomerular Filt Rate > 60; Glucose Random 82 mg/dL (60-115); Iron 15 mcg/dL (30-160); Percent Iron Saturation 10 % (15-50); Potassium 3.3 mmol/L (3.3-5.1); Sodium 131 mmol/L (135-145); Total Iron Binding Capacity 149 mcg/dL (228-428); Unsaturated Iron Binding 134 ug/dL
[2021-07-12] MEDS: Loratadine 10 MG TABLET PO (08:58)
[2021-07-12] MEDS: 0.9 % Sodium Chloride Flush 3 ML SYRINGE IVFLUSH ×2 (08:59→16:17)
--- NOTE | 2021-07-12 11:29 | P.PNIM_ITS ---
Subjective Subjective Date of Service: 07/12/21 Review of Systems Follow up encephalopathy still feeling weak but mental status has improved All other systems are reviewed and are negative Physical Exam Verdana 4l Vital Signs: Verdana 4d Verdana 4d Vital Signs: Verdana 4d Verdana 4Bd Last Vital Signs Verdana 4d Dry House [place] New 4d Sid New 4d Temp 98.2 F 07/12/21 08:32 Dry House [place] New 4d Pulse 104 H 07/12/21 08:32 Dry House [place] NewNew 4d Resp 16 07/12/21 08:32 BP 108/57 L 07/12/21 08:32 Pulse Ox 97 07/12/21 08:32 Oxygen Flow Rate 2 07/09/21 15:30 BMI result Body Mass Index 35.0 Objective Data Active Medications Acetaminophen (Acetaminophen 325 Mg Tablet) 650 mg PO Q6H PRN PRN Reason: Pain, Mild (Pain Scale 1-3) Last Admin: 07/11/21 11:42 Dose: 650 mg Documented by: GASPER Albuterol Sulfate (Albuterol Sulfate 90 Mcg 8 Gm Inhaler) 2 puff INHALE Q6H PRN PRN Reason: shortness of breath or wheezing Last Admin: 07/12/21 04:28 Dose: 2 puff Documented by: DERECK Benzonatate (Benzonatate 100 Mg Capsule) 100 mg PO TID PRN PRN Reason: Cough Bisacodyl (Bisacodyl 10 Mg Supp.Rect) 10 mg [place] DAILY PRN PRN Reason: Constipation Dextrose (Dextrose 50 % 25 Gm/50 Ml Vial) 25 gm IVPUSH Q15M PRN; Protocol PRN Reason: per Hypoglycemia Standing Ord. Docusate Sodium (Docusate Sodium 100 Mg Capsule) 100 mg PO DAILY PRN PRN Reason: Constipation Fluoxetine HCl (Fluoxetine Hcl 20 Mg Capsule) 20 mg PO BEDTIME [facility] Last Admin: 07/11/21 20:57 Dose: 20 mg Documented by: DERECK Fluticasone Propionate (Fluticasone Propionate Nasal 16 Gm [place]) 1 spray NOSTRIL-B DAILY [facility] Last Admin: 07/12/21 10:22 Dose: Not Given Documented by: MAEGAN Non-Admin Reason: not available Glucose (Glucose Gel 15 Gm Gel..Gram.) 15 gm PO Q15M PRN; Protocol PRN Reason: per Hypoglycemia Standing Ord. Hydroxyzine HCl (Hydroxyzine Hcl 25 Mg Tablet) 25 mg PO BID PRN PRN Reason: Itching Last Admin: 07/11/21 20:56 Dose: 25 mg Documented by: DERECK Cefepime HCl 2 gm/ Sodium (Chloride) 50 mls @ 100 mls/hr IV Q8H [facility] Last Infusion: 07/12/21 10:22 Dose: 100 mls/hr Documented by: MAEGAN Insulin Human Lispro (Insulin Lispro 100 Unit/Ml 3 Ml Vial) 0 unit SUBCUT QIDACHS [facility]; Protocol Last Admin: 07/12/21 08:44 Dose: Not Given Documented by: MAEGAN Non-Admin Reason: No Insulin Coverage Loratadine (Loratadine 10 Mg Tablet) 10 mg PO DAILY [facility] Last Admin: 07/12/21 08:58 Dose: 10 mg Documented by: MAEGAN Ondansetron HCl (Ondansetron Hcl 4 Mg/2 Ml Vial) 4 mg IVPUSH Q8H PRN PRN Reason: Nausea and Vomiting Pharmacy Consult (Consult Rx Perform Med Rec) 1 each MISCELLANE ONCE PRN PRN Reason: Consult order Sodium Chloride (0.9 % Sodium Chloride Flush 3 Ml Syringe) 3 ml IVFLUSH QSHIFT [facility] Last Admin: 07/12/21 08:59 Dose: 3 ml Documented by: MAEGAN Labs CBC & Chem 7: 07/12/21 07:56 07/12/21 07:56 Labs: Laboratory Results - last 24 hr 07/11/21 07/11/21 07/11/21 11:43 16:38 20:21 MCV MCH MCHC RDW Plt Count MPV Absolute Nucleated RBC Nucleated RBC % (auto) Anion Gap Estim Creat Clear Calc Estimated GFR POC Glucose 85 75 100 Random Glucose Calcium Iron TIBC % Saturation Unsat Iron Binding 07/12/21 07/12/21 07/12/21 07:26 07:56 07:56 MCV 82.2 MCH 26.1 L MCHC 31.8 RDW 21.6 H Plt Count 430 H MPV 9.4 Absolute Nucleated RBC 0.000 Nucleated RBC % (auto) 0.0 Anion Gap 10 L Estim Creat Clear Calc 138.9 Estimated GFR > 60 POC Glucose 80 Random Glucose 82 Calcium 8.3 L Iron 15 L TIBC 149 L % Saturation 10 L Unsat Iron Binding 134 Microbiology Microbiology Results: Microbiology 07/09/21 20:45 Blood Culture - Final Blood - Venous Coag negative Staphylococcus 07/09/21 16:42 Blood Culture - Preliminary Blood - Venous No growth after 48 hours. Assessment and Plan (1) Toxic encephalopathy: Status: Acute (2) Fever: Status: Acute Assessment and Plan: This is a 60-year-old female with history of Hodgkin's lymphoma,? diabetes hyperlipidemia neuropathy among others who? was initially sent to the hospital due to altered mental status found to have low-grade fever Toxic encephalopathy Unclear etiololgy Patient appears to be back at her baseline Blood cx show GPC 1/2 Coag neg staph Hypoxia Documented to have hypoxia while in the emergency department No respiratory symptoms Chest CT showed no new findings, chronic lymphadenopathy.? CTA negative for PE was treated with dose of lasix in ED seems to have resolved. Not currently requiring supplemental oxygen at this time Fever Unclear etiology at this time. ? Blood cx GPC 1/2 coag neg staph Possibly secondary to recent flu shot or underlying recurrence of Hodgkin's lymphoma UA negative, chest imaging shows no evidence of pneumonia. covid negative Will treat empirically with cefepime and await final blood culture results Normocytic anemia No signs bleeding Follow CBC Hyponatremia Mild follow BMP HTN Blood pressure borderline Will hold losartan DM. ADA diet, SSI, pocs mood Continue Prozac History of cardiomyopathy Previous notes indicate EF of 45% does not appear to be fluid overloaded at this time hold losartan due to hypotension DIPSO plan for tx to rehab when medically stable DVT prophylaxis-mechanical devices Code status -Full code attending-Dr. Rick Quality Stroke Does the patient have a stroke diagnosis?: No VTE Prior VTE?: No VTE Risk Level:: Medical - moderate - high VTE Device Contraindication: N/A - Device Ordered VTE Drug Contraindication: N/A - Med Ordered
[2021-07-12 13:03] LABS: Glucose, Whole Blood 75 mg/dL (60-115)
[2021-07-12] MEDS: Ferrous Sulfate 324 MG TABLET.DR 325 MG PO (13:09)
[2021-07-12] MEDS: 0.9 % Sodium Chloride 500 ML IV (13:10)
[2021-07-12 13:25] VITALS: BP 101/50; PULSE 107; RESP 16; TEMP 37.1; O2SAT 96
[2021-07-12 14:13] LABS: Influenza A PCR NEGATIVE (Negative); Influenza B PCR NEGATIVE (Negative); Resp Syncy Virus RNA Qual PCR NEGATIVE (Negative); SARS COV2 PCR INHOUSE NEGATIVE (Negative)
--- NOTE | 2021-07-12 14:51 | PC.NURSE ---
pt's [place] ([place], [place] [facility] [place].
--- NOTE | 2021-07-12 15:47 | MHC.CM.PN ---
Attempted to meet with patient in regards to discharge planning. Patient currently sleeping. Spoke with patient's sister/HCP, Leida via telephone. Patient normally lives at home. However, patient has been at [facility] for short term rehab. Anticipate patient will return to [facility] when medically stable via BLS. IMM explained and sent to Leida. PCP verified as Dolores Petersen. Copy of HCP verified to be on file. Patient received 2 Moderna vaccines. Continue to monitor for d/c needs.
[2021-07-12 17:42] LABS: Anion Gap 12 (12-20); Blood Urea Nitrogen 6 mg/dL (9-16); Calcium 8.5 mg/dL (8.4-10.2); Carbon Dioxide 29 mmol/L (22-29); Chloride 97 mmol/L (96-108); Creatinine Clr Calc Pharmacy 132.7; Estimated Glomerular Filt Rate > 60; Glucose Random 78 mg/dL (60-115); Potassium 3.9 mmol/L (3.3-5.1); Sodium 134 mmol/L (135-145)
[2021-07-12 18:10] VITALS: BP 120/69; PULSE 106; RESP 20; TEMP 36.9; O2SAT 92
[2021-07-12 18:24] LABS: Glucose, Whole Blood 78 mg/dL (60-115)
[2021-07-12] MEDS: carvediloL 3.125 MG TABLET PO (19:36)
[2021-07-12] MEDS: FLUoxetine HCl 20 MG CAPSULE PO (19:36)
[2021-07-12 19:37] VITALS: BP 108/62; PULSE 113; RESP 16; O2SAT 96
[2021-07-12 22:22] LABS: Glucose, Whole Blood 91 mg/dL (60-115)
[2021-07-13] VITALS (8 sets, daily range): BP systolic 88–144; BP diastolic 50–80; PULSE 81–105; RESP 15–16; TEMP 36.6; O2SAT 92–99
[2021-07-13] MEDS: 0.9 % Sodium Chloride Flush 3 ML SYRINGE IVFLUSH (00:50)
[2021-07-13] MEDS: cefEPime HCl 2 GM in 0.9 % Sodium Chloride 50 ML IV ×2 (00:51→08:50)
[2021-07-13] MEDS: Docusate Sodium 100 MG CAPSULE PO (03:53)
[2021-07-13] MEDS: Acetaminophen 325 MG TABLET 650 MG PO (03:53)
[2021-07-13] MEDS: Benzonatate 100 MG CAPSULE PO (03:53)
--- NOTE | 2021-07-13 03:55 | PC.NURSE ---
Patient reports right ankle pain. States she had past surgery on right ankle and it was bumped when staff moved her, she states. Tylenol given. Described as trhobbing.
--- NOTE | 2021-07-13 06:27 | PC.NURSE ---
Pt with persistant dry cough, tessalon given. patient c/o constipation, colace and prune juice given. incontinent of smear.
[2021-07-13 07:27] LABS: Hematocrit 25.9 % (37.0-47.0); Hemoglobin 8.4 g/dl (12.0-16.0); Mean Corpuscular HGB Conc 32.4 g/dl (31.0-35.0); Mean Corpuscular Hemoglobin 26.5 pg (27.0-33.0); Mean Corpuscular Volume 81.7 fL (80.0-98.0); Mean Platelet Volume 9.3 fL (9.4-12.3); Platelet Count 350 X10*3/uL (160-400); Red Blood Count 3.17 X10*6/uL (4.20-5.50); Red Cell Distribution Width 21.5 % (11.0-16.0); White Blood Count 12.1 X10*3/uL (4.8-10.8)
[2021-07-13 07:37] LABS: Glucose, Whole Blood 102 mg/dL (60-115)
[2021-07-13 07:42] LABS: Anion Gap 10 (12-20); Blood Urea Nitrogen 7 mg/dL (9-16); Calcium 8.1 mg/dL (8.4-10.2); Carbon Dioxide 28 mmol/L (22-29); Chloride 97 mmol/L (96-108); Creatinine Clr Calc Pharmacy 142.1; Estimated Glomerular Filt Rate > 60; Glucose Random 107 mg/dL (60-115); Potassium 3.2 mmol/L (3.3-5.1); Sodium 132 mmol/L (135-145)
[2021-07-13] MEDS: 0.9 % Sodium Chloride 1,000 ML 999 ML IVCONT ×2 (08:50→10:22)
[2021-07-13] MEDS: Potassium Chloride ER 20 MEQ TAB.ER.PRT 60 MEQ PO (08:51)
[2021-07-13] MEDS: Ferrous Sulfate 324 MG TABLET.DR 325 MG PO (08:51)
[2021-07-13] MEDS: Loratadine 10 MG TABLET PO (08:52)
[2021-07-13] MEDS: Fluticasone Propionate Nasal 16 GM SPRAY 1 SPRAY NOSTRIL-B (08:52)
--- NOTE | 2021-07-13 08:54 | PC.NURSE ---
Pt received from operation shift supervisor: AOX4 and offers no complaints at this time. Heart sounds normal and lungs clear. Pt abd soft and non-tender. Bermudez catheter in tact and draining.
--- NOTE | 2021-07-13 11:52 | MHC.CDI.CONC ---
CDI Concurrent Query Documentation Clarification: PHYSICIAN'S DOCUMENTATION REQUEST Date of Query: 07/13/21 1155 Patient Name: Shaina Orona Admit Date: 07/10/21 Dear Doctor, A review of the medical record indicates additional documentation may be needed. Please review below and update the documentation accordingly. Clinical Indicators: Risk Factors/Clinical Indicators/Treatments History of Cardiomyopathy. Does not appear to be fluid overload. Hold Losartan due to hypotension. Based on the above, could you clarify in the Progress Notes the appropriate diagnosis, if significant, that supports the above abnormalities and additional evaluation, monitoring, and/or treatment rendered: Cardiomyopathy: Non-ischemic Cardiomyopathy Ischemic Cardiomyopathy Dilated Cardiomyopathy Hypertensive Cardiomyopathy Other or unspecified Unable to determine Use of terms such as suspected, likely, concern for, or probable (associated with a specific diagnosis that is being evaluated, monitored, or treated as if it exists) are acceptable and can be coded in the inpatient setting, when documented at the time of discharge. Thank you, Nicole Nielsen [facility], CDIS Extension: [phone] Please use your independent medical judgment in providing your response. THIS QUERY IS PART OF THE PERMANENT MEDICAL RECORD
--- NOTE | 2021-07-13 12:03 | P.CDIC_ITS ---
CDI Concurrent Query Documentation Clarification: PHYSICIAN'S DOCUMENTATION REQUEST Date of Query: 07/13/21 1203 Patient Name: Shaina Orona Admit Date: 07/10/21 Dear Doctor, A review of the medical record indicates additional documentation may be needed. Please review below and update the documentation accordingly. Risk Factors/Clinical Indicators/Treatments History of CHF BNP 356 287 H Lasix previous notes indicate EF of 45%. Please provide further specificity regarding the most likely type and acuity of CHF you are evaluating, treating, or monitoring. Examples include: Type: * Systolic * Diastolic * Combined Systolic/Diastolic * Other ? please specify * Unable to determine Acuity: * Acute * Chronic * Acute on chronic * Unable to determine Use of terms such as suspected, likely, concern for, or probable (associated with a specific diagnosis that is being evaluated, monitored, or treated as if it exists) are acceptable and can be coded in the inpatient setting, when documented at the time of discharge. Thank you, Nicole Nielsen [facility], CDIS Extension: [phone] Please use your independent medical judgment in providing your response. THIS QUERY IS PART OF THE PERMANENT MEDICAL RECORD
--- NOTE | 2021-07-13 12:39 | MHC.CM.PN ---
Addendum entered by Jeny Rayo 07/13/21 15:21: TRANSPORT DELAYED UNTIL 1700 HCP NOTIFIED VIA T/C SNF NOTIFIED VIA [place] RN MESSAGED VIA [facility] Original Note: PT IS CLEARED TO RETURN TO [facility] CM CALLED HER HCP/SISTER ASHLEY [phone] AND INFORMED HER OF DC TIME PT ALSO MADE AWARE PT WILL TRANSPORT VIA [facility] AT 1400 HOURS
[2021-07-13 13:47] LABS: Glucose, Whole Blood 95 mg/dL (60-115)
--- NOTE | 2021-07-13 14:18 | P.DS_ITS ---
DS: Providers Provider Date of Service: 07/13/21 Date of admission: 07/10/21 14:09 Primary care physician: Unknown Physician Attending physician on discharge: Semaj Jacobson Discharging clinician: Iris Mancilla DS: Diagnosis Discharge Diagnosis (1) Toxic encephalopathy: Status: Acute (2) Fever: Status: Acute DS: Summary Hospital Course Hospital Course: HP as per admitting provider this is a 60-year-old female? who was sent to the emergency department due to episode altered mental status.? She was sent [facility] because she acting like herself. ? Initially she was not answering questions appropriately but now appears to be back to her baseline.? she is unable to provide any history as to why she was sent to the emergency department. She was recently admitted to the ICU secondary to persistent hypotension secondary to anemia and poor oral intake requiring fluid resuscitation and 3 units RBCs.? During that hospitalization she also underwent lymph node biopsy which shows recurrence of Hodgkin's lymphoma.? She? has not yet followed up with Oncology since her discharge. ? In the emergency department her brain CT was unremarkable.? Her lab work showed no significant abnormalities.? H/ H appear to be close to her baseline.? While she is in the emergency department she spiked a low-grade fever of 100.4.? She reports receiving her flu shot two? days ago and states that she frequently gets a fever after her flu shot.? Urinalysis was unremarkable, chest x-ray showed no evidence of pneumonia.? She underwent chest CT as well as CTA which showed persistent lymphadenopathy but no new changes.? She received empiric cefepime.? She was also noted to have a documented hypoxia however during my evaluation her oxygen was turned off and her oxygen saturation remained in the high 90s. vaccination status- patient has received Moderna x2.? She has not yet received her booster shot . Toxic encephalopathy Unclear etiology Patient appears to be back at her baseline Blood cx show GPC 1/2 Coag neg staph Hypoxia Documented to have hypoxia while in the emergency department No respiratory symptoms Chest CT showed no new findings, chronic lymphadenopathy.? CTA negative for PE was treated with dose of lasix in ED seems to have resolved. Not requiring supplemental oxygen at this time Fever Unclear etiology at this time. ? Blood cx GPC 1/2 coag neg staph Possibly secondary to recent flu shot or underlying recurrence of Hodgkin's lymphoma UA negative, chest imaging shows no evidence of pneumonia. covid negative Time Spent with Patient Time attestation: Total time spent providing and/or coordinating discharge services: Discharge coordination time: Greater than 30 minutes Quality: Stroke Does the patient have a stroke diagnosis?: No Physical Exam Vital Signs: Vital Signs: Last Vital Signs Temp 97.9 F 07/13/21 07:48 Pulse 97 07/13/21 12:13 Resp 16 07/13/21 12:13 BP 103/68 07/13/21 12:13 Pulse Ox 97 07/13/21 12:13 Oxygen Flow Rate 2 07/09/21 15:30 BMI result Body Mass Index 35.0 Appearing in no acute distress head is normocephalic atraumatic eyes pupils are PERRLA sclera is anicteric mouth throat mucous membranes are intact and moist neck is supple no lymphadenopathy, no JVD noted lung sounds are clear to auscultation heart regular rate rhythm, clear S1, S2 positive bowel sounds, abdomen is soft, nontender neuro patient is alert x3, no focal deficits DS: Data Data Completed and Pending Completed studies during hospitalization [Text1]: Procedures Extraction of Left Inguinal Lymphatic, Percutaneous Approach, Diagnostic (06/18/21) Transfusion of Nonautologous Red Blood Cells into Peripheral Vein, Percutaneous Approach (06/18/21) Labs on day of discharge: Laboratory Results - last 24 hr 07/12/21 07/12/21 07/12/21 13:20 17:05 18:16 WBC RBC Hgb Hct MCV MCH MCHC RDW Plt Count MPV Absolute Nucleated RBC Nucleated RBC % (auto) Sodium 134 L Potassium 3.9 Chloride 97 Carbon Dioxide 29 Anion Gap 12 BUN 6 L Creatinine 0.45 L Estim Creat Clear Calc 132.7 Estimated GFR > 60 POC Glucose 78 Random Glucose 78 Calcium 8.5 Influenza Type A (PCR) NEGATIVE Influenza Type B (PCR) NEGATIVE RSV RNA Qual (PCR) NEGATIVE SARS-CoV-2 RNA (RT-PCR) NEGATIVE 07/12/21 07/13/21 07/13/21 22:16 07:06 07:06 WBC 12.1 H RBC 3.17 L Hgb 8.4 L Hct 25.9 L MCV 81.7 MCH 26.5 L MCHC 32.4 RDW 21.5 H Plt Count 350 MPV 9.3 L Absolute Nucleated RBC 0.000 Nucleated RBC % (auto) 0.0 Sodium 132 L Potassium 3.2 L Chloride 97 Carbon Dioxide 28 Anion Gap 10 L BUN 7 L Creatinine 0.42 L Estim Creat Clear Calc 142.1 Estimated GFR > 60 POC Glucose 91 Random Glucose 107 Calcium 8.1 L Influenza Type A (PCR) Influenza Type B (PCR) RSV RNA Qual (PCR) SARS-CoV-2 RNA (RT-PCR) 07/13/21 07/13/21 07:30 13:39 WBC RBC Hgb Hct MCV MCH MCHC RDW Plt Count MPV Absolute Nucleated RBC Nucleated RBC % (auto) Sodium Potassium Chloride Carbon Dioxide Anion Gap BUN Creatinine Estim Creat Clear Calc Estimated GFR POC Glucose 102 95 Random Glucose Calcium Influenza Type A (PCR) Influenza Type B (PCR) RSV RNA Qual (PCR) SARS-CoV-2 RNA (RT-PCR) Preliminary micro results at discharge 07/09/21 16:42 Blood Culture - Preliminary Blood - Venous No growth after 48 hours. Discharge Plan Discharge Anticipated Discharge Date/Time: 07/13/21 14:12 Patient Disposition: Xfer Inpatient Rehab Fac Discharge Diagnosis: Fever of unknown origin Referrals: [facility] [Outside] - 1 Week Physician,Unknown J [Primary Care Provider] - 1 Week Discharge Medications: New carvedilol 3.125 mg Tablet 3.125 mg PO BEDTIME Qty: 30 RF: 0 Continued albuterol sulfate [ProAir HFA] 90 mcg/actuation HFA aerosol inhaler 2 puff inhalation Q6H PRN (Reason: shortness of breath or wheezing) Qty: 17 RF: 5 fluticasone propionate 50 mcg/actuation spray,suspension 1 spray intranasal DAILY Qty: 16 RF: 4 acetaminophen 325 mg Tablet 650 mg PO Q6H PRN (Reason: Fever) RF: 0 cetirizine [Zyrtec] 10 mg Tablet 10 mg PO DAILY RF: 0 loperamide 2 mg Tablet 2 mg PO Q4H PRN (Reason: Diarrhea) RF: 0 magnesium hydroxide [Milk of Magnesia] 400 mg/5 mL Suspension 1,200 mg PO DAILY PRN (Reason: Constipation) RF: 0 bisacodyl 10 mg Suppository 10 mg UT DAILY PRN (Reason: Constipation) RF: 0 hydroxyzine HCl 25 mg Tablet 25 mg PO BID PRN (Reason: Itching) RF: 0 glucose Tablet,Chewable 15 g PO Q15M PRN (Reason: Hypoglycemia) RF: 0 fluoxetine [Prozac] 20 mg capsule 20 mg PO QPM RF: 0 Discontinued carvedilol 3.125 mg Tablet 3.125 mg PO BID RF: 0 losartan 25 mg tablet 25 mg PO DAILY 90 Days Qty: 180 RF: 0 Discharge Orders: Discharge Order (Routine); Ordered 07/13/21 Ordered By: Iris Mancilla Diet: advance to usual diet Activity on Discharge: As tolerated Stand Alone Forms: Patient Portal Discharge page Activity Restrictions/Additional Instructions: Please follow-up with your primary care physician tomorrow. If you have any worsening or new symptoms, please return to the emergency room or call 911 Care Plan Goals: complete physical therapy for increase in strength Health Concerns: Fever of unknown origin Plan of Treatment: You will be transferred to short-term rehabilitation Your beta-esau was decreased and your losartan was stopped due to low blood pressure Assessment: See discharge summary Patient Instructions: Acute Delirium (ED)
--- NOTE | 2021-07-13 14:36 | PC.NURSE ---
Pt update status given to pt's sister Raina: [phone]
--- NOTE | 2021-07-13 15:29 | PC.NURSE ---
Pending EMS pickup after D/C. As per case work aide Fannie, pickup delayed until 1700. RN will continue to monitor.
[2021-07-13 17:17] LABS: Glucose, Whole Blood 119 mg/dL (60-115)
== END 2021-07-13 21:05 | DRG 92 ==
LOC: HO.ED 07-10 11:08 → HO.EDOVER 07-10 14:25
PROVIDERS: Emergency Medicine; Student in an Organized Health Care Education/Training Program; Admitting Provider Physician Assistant Medical; Emergency Provider Emergency Medicine; PCP Internal Medicine; Visit Provider Nurse Practitioner Acute Care
DX: G92.9 Unspecified toxic encephalopathy (principal); E87.1 Hypo-osmolality and hyponatremia; I42.8 Other cardiomyopathies; E11.9 Type 2 diabetes mellitus without complications; R09.02 Hypoxemia; Z20.822 Contact with and (suspected) exposure to COVID-19; Z87.891 Personal history of nicotine dependence; Z79.51 Long term (current) use of inhaled steroids; Z79.899 Other long term (current) drug therapy
CPT/HCPCS: 0241U; 36415; 70450; 71045; 71250; 71275; 76705; 80048; 80053; 80076; 80307; 81001; 82947; 83540; 83605; 83690; 83880; 84484; 85007; 85025; 85027; 85610; 87040; 87147; 87205; 87635; 93005; 99285; J0692; J1940; J2060; Q9967